=== PATIENT | male | born 1960 | race Caucasian/White ===

== ENCOUNTER 2016-11-24 20:49 | Emergency (ER) | payer MEDICAID ==
[~2016-11-24] VITALS: Ht 180.3 cm; Wt 113.4 kg
[~2016-11-24 20:49] MED LIST: ACYC800T PO; ASPI-862 PO; ASPI81TA2 PO; ATOR10TA68 PO; AZIT600T PO; BETA15OI7 TP; CHOL100024 PO; CHOL100053 PO; CICL34.62 TP; DARU400T2 PO; DIF100 PO; DOXA2TAB PO; EMTR1TAB12; EMTR1TAB9 PO; FLUT15CR TP; HYDR-4023 PO; HYDR25TA4 PO; LIP10 PO; LORA10CA PO; LORA10TA7 PO; MELO15TA13 PO; MULT-1089 PO; MULT-900 PO; NIZCR60 TP; NORVIR; PRESISTA; RALT400T5; RANI-281 PO; SULF1TAB3 PO; SULF1TAB47 PO; TRIA10.8 NS; VALS40TA6 PO; VALS80TA2 PO
[2016-11-24 21:03] VITALS: BP 146/95; PULSE 111; RESP 18; TEMP 98.2; O2SAT 95
--- NOTE | 2016-11-24 21:12 | NUR ---
Patient to ER bed 8 to gown for evaluation. Side rails up. Report given to My RN.
--- NOTE | 2016-11-24 21:15 | NUR ---
Pt drove to Emergency Room by himself, A&Ox 4, c/o sharp pain 04/22 to the right side of his stomach radiating to the back, chills, dizziness, nausea since Sunday. Pt reports having dark urine but denies any burning sensation or dysuria. Pt states that he was diagnosed with AIDS in 1998 and had rectal infection last Sunday. No SOB or ROACH at this moment. Safety maintained. Continue to monitor.
--- NOTE | 2016-11-24 21:30 | NUR ---
DAVEY Oneil at bedside examining patient. Addendum: 11/24/16 at 2305 by SDNURMTN DAVEY Cruz at bedside examining patient.
[2016-11-24 21:35] LABS: BASOPHILS # (AUTO) 0.1 K/uL (0.0-0.2); BASOPHILS % (AUTO) 1.7 % (0.0-2.0); EOSINOPHILS % (AUTO) 0.6 % (0.0-4.0); HEMATOCRIT 37.6 % (36-54); HEMOGLOBIN 12.9 g/dL (14.0-18.0); LYMPHOCYTES # (AUTO) 1.2 K/uL (1.0-5.5); LYMPHOCYTES % (AUTO) 19.5 % (20.5-51.5); MEAN CORPUSCULAR HEMOGLOBIN 32 pg (27-31); MEAN CORPUSCULAR HGB CONC 34 % (32-36); MEAN CORPUSCULAR VOLUME 94 fL (79.0-98.0); MONOCYTES # (AUTO) 0.5 K/uL (0.0-1.0); MONOCYTES % (AUTO) 7.9 % (1.7-9.3); NEUTROPHILS # (AUTO) 4.1 K/uL (1.8-7.7); NEUTROPHILS % (AUTO) 70.3 % (40.0-70.0); PLATELET COUNT (AUTO) 174 K/uL (130-430); RED BLOOD CELL COUNT(AUTO) 3.99 MIL/uL (4.2-6.2); RED CELL DISTRIBUTION WIDTH 12.7 % (9.0-15.0); WHITE BLOOD COUNT (AUTO) 5.9 K/uL (4.8-10.8)
[2016-11-24 21:45] LABS: BILIRUBIN,URINE NEGATIVE (NEGATIVE); BLOOD, URINE NEGATIVE (NEGATIVE); CLARITY/URINE CLEAR (CLEAR); COLOR,URINE YELLOW (YELLOW); GLUCOSE,URINE NEGATIVE (NEGATIVE); KETONES,URINE TRACE (NEGATIVE); LEUKOCYTE ESTERASE ,URINE NEGATIVE (NEGATIVE); NITRITE, URINE NEGATIVE (NEGATIVE); PH,URINE 5.5 (5.0-8.0); PROTEIN URINE NEGATIVE (NEGATIVE); UROBILINOGEN,URINE 0.2 (0.2-1.0)
[2016-11-24] MEDS ORDERED: KETOROLAC TROMETHAMINE 30 MG VIAL IVP ONE (21:45)
[2016-11-24 21:46] LABS: CALCIUM 8.5 mg/dL (8.4-11.0); CREATININE 1.48 mg/dL (0.55-1.30)
[2016-11-24 21:50] LABS: TOTAL BILIRUBIN 0.8 mg/dL (0.0-1.0); TOTAL PROTEIN, SERUM 6.5 g/dL (6.4-8.3)
--- NOTE | 2016-11-24 21:50 | NUR ---
Pt brought out via wheelchair for CT scan
[2016-11-24] MEDS ORDERED: POTASSIUM CHLORIDE 20 MEQ TAB.PRT.SR PO ONE (22:00)
--- NOTE | 2016-11-24 22:55 | NUR ---
Patient given written and verbal discharge instructions and verbalizes understanding. ER MD discussed with patient the results and treatment provided. Patient in stable condition. ID arm band removed. IV catheter removed intact and dressing applied, no active bleeding. Rx of Zofran given. Patient educated on pain management and to follow up with PMD. Pain Scale 09/22. Opportunity for questions provided and answered.
[2016-11-24 23:12] VITALS: BP 133/94; PULSE 105; RESP 18; TEMP 98.2; O2SAT 95
== END 2016-11-24 22:55 | disposition home or self-care (01) ==
LOC: SED 20:49
DX: R10.9 Unspecified abdominal pain (principal); R11.0 Nausea; R50.9 Fever, unspecified; I10 Essential (primary) hypertension; I25.2 Old myocardial infarction; Z91.011 Allergy to milk products; Z79.82 Long term (current) use of aspirin; Z86.73 Personal history of transient ischemic attack (TIA), and cerebral infarction without residual deficits
CPT/HCPCS: 36415; 74176; 80053; 81003; 83690; 85025; 96374; 99285; J1885

== ENCOUNTER 2016-12-24 22:57 | Emergency (ER) | payer MEDICAID ==
[~2016-12-24] VITALS: Ht 180.3 cm; Wt 90.7 kg
[2016-12-24 23:12] VITALS: BP_SYST 145; PULSE 86; RESP 18; TEMP 98.3; O2SAT 97
[2016-12-24] MEDS ORDERED: NACL 0.9% 1,000 ML IV ONE ×2 (23:16→23:30)
[2016-12-24 23:28] LABS: BASOPHILS % (AUTO) 0.2 % (0.0-2.0); EOSINOPHILS % (AUTO) 0.1 % (0.0-4.0); HEMATOCRIT 42.9 % (36-54); HEMOGLOBIN 14.2 g/dL (14.0-18.0); LYMPHOCYTES # (AUTO) 1.5 K/uL (1.0-5.5); LYMPHOCYTES % (AUTO) 20.1 % (20.5-51.5); MEAN CORPUSCULAR HEMOGLOBIN 31 pg (27-31); MEAN CORPUSCULAR HGB CONC 33 % (32-36); MEAN CORPUSCULAR VOLUME 95 fL (79.0-98.0); MONOCYTES # (AUTO) 0.7 K/uL (0.0-1.0); MONOCYTES % (AUTO) 9.4 % (1.7-9.3); NEUTROPHILS # (AUTO) 5.1 K/uL (1.8-7.7); NEUTROPHILS % (AUTO) 70.2 % (40.0-70.0); PLATELET COUNT (AUTO) 215 K/uL (130-430); RED BLOOD CELL COUNT(AUTO) 4.51 MIL/uL (4.2-6.2); RED CELL DISTRIBUTION WIDTH 12.2 % (9.0-15.0); WHITE BLOOD COUNT (AUTO) 7.3 K/uL (4.8-10.8)
[2016-12-24] MEDS ORDERED: ASPIRIN 81 MG TAB.CHEW PO ONE (23:30)
[2016-12-24 23:40] LABS: ANION GAP 7 (5-15); CALCIUM 9.1 mg/dL (8.4-11.0); CHLORIDE 103 mmol/L (98-107); CREATININE 1.13 mg/dL (0.55-1.30); GLUCOSE 157 mg/dL (70-99); POTASSIUM 3.7 mmol/L (3.5-5.1); SODIUM SERUM 141 mmol/L (136-145); UREA NITROGEN, BLOOD 23 mg/dL (8-21)
[2016-12-24 23:44] LABS: GFR AFRICAN AMERICAN 87 mL/min (>90)
[2016-12-24] MEDS ORDERED: LORazepam 2 MG/ML VIAL (FOR ER USE) IVP ONE (23:45)
[2016-12-24 23:51] LABS: ALANINE AMINOTRANSFERASE 34 U/L (12-78); ALBUMIN 3.7 g/dL (3.4-4.8); ASPARTATE AMINOTRANSFERASE 18 U/L (10-37); TOTAL BILIRUBIN 0.6 mg/dL (0.0-1.0); TOTAL PROTEIN, SERUM 6.8 g/dL (6.4-8.3)
[2016-12-24 23:59] LABS: INR 0.9 (0.80-1.20); PROTHROMBIN TIME 9.9 SECS (9.5-12.5)
[2016-12-25 01:40] VITALS: BP 128/72; PULSE 69; RESP 18; TEMP 98; O2SAT 97
== END 2016-12-25 01:40 | disposition home or self-care (01) ==
LOC: SED 22:57
DX: R00.2 Palpitations (principal); R06.02 Shortness of breath; I25.2 Old myocardial infarction; I10 Essential (primary) hypertension; Z91.011 Allergy to milk products; Z86.73 Personal history of transient ischemic attack (TIA), and cerebral infarction without residual deficits; Z79.82 Long term (current) use of aspirin
CPT/HCPCS: 36415; 80053; 84484; 85025; 85610; 85730; 93005; 96360; 99285; J7030; J2060

== ENCOUNTER 2017-01-08 18:20 | Emergency (ER) | payer MEDICAID ==
[~2017-01-08] VITALS: Ht 180.3 cm; Wt 115.2 kg
[~2017-01-08 18:20] MED LIST changes: -LORA10CA PO
[2017-01-08 18:26] VITALS: BP_SYST 122
[2017-01-08 19:13] VITALS: BP_SYST 122
== END 2017-01-08 19:13 | disposition home or self-care (01) ==
LOC: SED 18:20
DX: B02.9 Zoster without complications (principal); I25.2 Old myocardial infarction; I10 Essential (primary) hypertension; Z86.73 Personal history of transient ischemic attack (TIA), and cerebral infarction without residual deficits; Z79.82 Long term (current) use of aspirin; Z91.011 Allergy to milk products
CPT/HCPCS: 99283

== ENCOUNTER 2017-03-03 23:13 | Inpatient (IN) | payer MEDICAID ==
[~2017-03-03] VITALS: Ht 180.3 cm; Wt 117.5 kg
[2017-03-03 23:13] VITALS: BP_SYST 138
--- NOTE | 2017-03-03 23:13 | NUR ---
Patient to ER bed 3 to gown for evaluation. Side rails up. Report given to LASHELL GONSALVES.
--- NOTE | 2017-03-03 23:15 | NUR ---
Patient arrived to ED a/o x 4 with c/o headache x 6 days. Patient reports splitting 8/10 headache. Denies N/V. Reports diahhrea x 3 days. Visual disturbances. Reports feeling chills x 1 week. Patient is afebrile upon assessment. Reports constantly feeling cold. Patient has history of meningitis and HIV. Denies ABD pain. Skin warm, pink and dry. Will continue to monitor.
--- NOTE | 2017-03-03 23:15 | NUR ---
ED MD Cruz at bedside for medical assessment.
--- NOTE | 2017-03-03 23:30 | NUR ---
20 gauge angiocath placed to left. Use of asceptic technique. Opsite placed over site. Blood return noted. Blood for lab drawn from site. Flushed with 10 cc of normal saline. No evidence of infiltration noted. Patient tolerated well.
[2017-03-04] VITALS (7 sets, daily range): BP systolic 116–138
[2017-03-04] MEDS ORDERED: NACL 0.9% 1,000 ML IV ONE (00:15)
[2017-03-04] MEDS ORDERED: KETOROLAC TROMETHAMINE 30 MG VIAL IVP ONE (00:30)
[2017-03-04 00:50] LABS: BASOPHILS % (AUTO) 0.5 % (0.0-2.0); EOSINOPHILS # (AUTO) 0.1 K/uL (0.0-0.4); EOSINOPHILS % (AUTO) 1.8 % (0.0-4.0); HEMATOCRIT 40.8 % (36-54); HEMOGLOBIN 13.9 g/dL (14.0-18.0); LYMPHOCYTES # (AUTO) 1.8 K/uL (1.0-5.5); LYMPHOCYTES % (AUTO) 37.6 % (20.5-51.5); MEAN CORPUSCULAR HEMOGLOBIN 33 pg (27-31); MEAN CORPUSCULAR HGB CONC 34 % (32-36); MEAN CORPUSCULAR VOLUME 96 fL (79.0-98.0); MONOCYTES # (AUTO) 0.5 K/uL (0.0-1.0); MONOCYTES % (AUTO) 10.6 % (1.7-9.3); NEUTROPHILS # (AUTO) 2.3 K/uL (1.8-7.7); NEUTROPHILS % (AUTO) 49.5 % (40.0-70.0); PLATELET COUNT (AUTO) 181 K/uL (130-430); RED BLOOD CELL COUNT(AUTO) 4.27 MIL/uL (4.2-6.2); RED CELL DISTRIBUTION WIDTH 11.5 % (9.0-15.0); WHITE BLOOD COUNT (AUTO) 4.7 K/uL (4.8-10.8)
--- NOTE | 2017-03-04 00:52 | NUR ---
Medicated per MD orders. IVF infusing with no s/s of infiltration at this time. Will cont to monitor
[2017-03-04 01:00] LABS: INR 0.9 (0.80-1.20); PROTHROMBIN TIME 10.3 SECS (9.5-12.5)
[2017-03-04 01:01] LABS: CALCIUM 8.4 mg/dL (8.4-11.0); CHLORIDE 107 mmol/L (98-107); CREATININE 1.26 mg/dL (0.55-1.30); GLUCOSE 173 mg/dL (70-99); POTASSIUM 3.8 mmol/L (3.5-5.1); SODIUM SERUM 141 mmol/L (136-145); UREA NITROGEN, BLOOD 14 mg/dL (8-21)
[2017-03-04 01:03] LABS: GFR AFRICAN AMERICAN 77 mL/min (>90)
[2017-03-04 01:04] LABS: ANION GAP < 3 (5-15)
[2017-03-04 01:06] LABS: ALANINE AMINOTRANSFERASE 29 U/L (12-78); ALBUMIN 3.9 g/dL (3.4-4.8); ASPARTATE AMINOTRANSFERASE 18 U/L (10-37); LACTATE DEHYDROGENASE 233 U/L (85-227); TOTAL BILIRUBIN 0.5 mg/dL (0.0-1.0); TOTAL PROTEIN, SERUM 7.1 g/dL (6.4-8.3)
--- NOTE | 2017-03-04 01:20 | NUR ---
Patient reports pain 4/10 30 minutes after administration of tordal. No adverse reactions noted. Will continue to monitor.
[2017-03-04] MEDS ORDERED: MORPHINE 2 MG/ML INJ. SYRINGE IVP ONE (02:00)
[2017-03-04] MEDS ORDERED: PIPERACILLIN/TAZO 3.375 GM in NS 50 ML IV ONE (02:00)
--- NOTE | 2017-03-04 02:00 | NUR ---
Consent signed for Lumbar Puncture. Time out performed with all staff involved just prior to procedure. Lumbar area cleansed with Betadine per physician. Patient tolerated procedure well. Specimens to lab.
[2017-03-04] MEDS ORDERED: PIPERACILLIN/TAZOBACTAM 3.375 GM/VIAL (ZOSYN) IV ONE (02:08)
--- NOTE | 2017-03-04 02:15 | NUR ---
ED MD Cruz at bedside reassessing patient.
[2017-03-04] MEDS ORDERED: MAGNESIUM SULFATE 50 ML IV PRN (02:30)
[2017-03-04] MEDS ORDERED: ZOLPIDEM TARTRATE 5 MG TABLET PO PRN (02:30)
[2017-03-04] MEDS ORDERED: IPRATROPIUM/ALBUTEROL SULFATE 3 ML AMPUL.NEB INH PRN (02:30)
[2017-03-04] MEDS ORDERED: POTASSIUM CHLORIDE 20 MEQ TAB.PRT.SR PO PRN (02:30)
[2017-03-04] MEDS ORDERED: LORazepam 2 MG/ML VIAL IVP PRN (02:30)
--- NOTE | 2017-03-04 02:30 | NUR ---
Patient reports pain 4/10 30 minutes after administration of morphine. No adverse reactions noted. Will continue to monitor.
[2017-03-04 02:50] LABS: BILIRUBIN,URINE NEGATIVE (NEGATIVE); BLOOD, URINE NEGATIVE (NEGATIVE); CLARITY/URINE CLEAR (CLEAR); COLOR,URINE YELLOW (YELLOW); GLUCOSE,URINE NEGATIVE (NEGATIVE); KETONES,URINE NEGATIVE (NEGATIVE); LEUKOCYTE ESTERASE ,URINE NEGATIVE (NEGATIVE); NITRITE, URINE NEGATIVE (NEGATIVE); PROTEIN URINE NEGATIVE (NEGATIVE); UROBILINOGEN,URINE 0.2 (0.2-1.0)
--- NOTE | 2017-03-04 03:00 | NUR ---
Patient will be admitted to care of Dr. Stone. Admitted to telemetry unit. Will go to room 110B. Belongings list completed. Summary report printed. Report will be given at bedside.
--- NOTE | 2017-03-04 03:05 | NUR ---
ADMISSION NOTE Received patient from ER via gurney. Patient admitted with diagnosis of toxic encephalopathy. Patient is awake, alert, oriented X4. Patient oriented to hospital room, call light, toileting, pain management and safety-teach back done. Patient informed that Esau RN will be his nurse and that their room number is 110B. Personal belongings checked and Belongings List documented. Call light within reach
[2017-03-04 03:09] LABS: FREE T4 (FREE THYROXINE) 0.5 ng/dL (0.6-1.6); THYROID STIMULATING HORMONE 0.87 uIu/mL (0.34-4.82)
--- NOTE | 2017-03-04 03:20 | NUR ---
Initial note A/O x 3, no SOB, no chest pain, c/o headache 04/22. Skin warm to touch, IV at L AC, patent. One bandage at lower back due to lumbar puncture. No s/s of bleeding at site. Clear lung sounds and active bowel sounds. Patient is aware of stool collecting. +2 radial and pedal pulses. No edema noted. Call light within reach, bed at lowest position, will continue to monitor patient. Addendum: 03/04/17 at 0528 by Esau Sanon RN Headache 01/20. DONNA GONSALVES.
[2017-03-04] MEDS: NACL 0.9% 1,000 ML IV SCH ×3 (03:47→21:20)
[2017-03-04] MEDS ORDERED: ACYCLOVIR SODIUM 50 MG/ML VIAL IV ONE (04:28)
[2017-03-04] MEDS ORDERED: cefTRIAXone 2 GM VIAL ONE (04:29)
[2017-03-04] MEDS: ACYCLOVIR IV SCH ×3 (05:10→21:10)
[2017-03-04] MEDS: D5W IV SCH ×3 (05:10→21:10)
[2017-03-04] MEDS: MORPHINE 2 MG/ML INJ. SYRINGE IVP PRN ×3 (05:22→21:10)
--- NOTE | 2017-03-04 06:10 | NUR ---
Pain was not decreased by Morphine Per patient, he was talking Vicodin at home and worked for him. Will page Dr. Stone for patient pain management.
[2017-03-04] MEDS: INSULIN REGULAR, HUMAN 100 UNITS/ML, 10 ML VIAL (novoLIN R) SUBCUT PRN (06:38)
--- NOTE | 2017-03-04 06:48 | NUR ---
Report to Dr. Stone regarding patient pain was not controlled well. Dr. Stone ordered Vicodin 5/325 mg PO Q6H PRN for severe pain (7-10). is aware of patient is NPO. said it's ok to have medications orally.
--- NOTE | 2017-03-04 07:02 | NUR ---
Closing note Awake, no SOB, no chest pain, c/o headache, patient is aware of Vicodin order. Medication pending. IVF ongoing. Bed at lowest position, call light within reach, will give report to incoming nurse regarding stool collection for C-Diff and pain management.
--- NOTE | 2017-03-04 08:00 | NUR ---
INITIAL NOTE PT LAYING IN BED, RESTING, ALERT AND ORIENTED, NO S/S OF ACUTE DISTRESS, COMPLAINS OF HEADACHE AND SENSITIVITY TO LIGHT, REQUESTING THE LIGHT OVER HIS BED NOT BE TURNED ON TO PLEASE USE OTHER LIGHT, IV FLUIDS INFUSING AT ORDERED RATE, IV SITE PATENT AND INTACT, VSS, SAFETY MEASURES IN PLACE, WILL FOLLOW UP
[2017-03-04] MEDS: LORATADINE 10 MG TABLET PO SCH (08:53)
[2017-03-04] MEDS: HYDROcodone/ACETAMIN 5-325 MG TAB (NORCO/ VICODIN) PO PRN ×2 (08:57→15:27)
[2017-03-04] MEDS: DOXAZOSIN MESYLATE 2 MG TABLET PO SCH (08:58)
[2017-03-04] MEDS: VALSARTAN 80 MG TABLET (DIOVAN) PO SCH (08:58)
[2017-03-04] MEDS: HYDROCHLOROTHIAZIDE 25 MG TABLET (HCTZ) PO SCH (08:59)
[2017-03-04] MEDS ORDERED: DOCUSATE SODIUM 100 MG CAPSULE PO SCH (09:00)
--- NOTE | 2017-03-04 09:30 | NUR ---
PT HAD BM, BM WAS FORMED, NO FOUL ORDER NOTED, WILL MONITOR FOR LOOSE STOOL PER PATIENT ADMITTING REPORT
--- NOTE | 2017-03-04 11:00 | NUR ---
DR TOVAR MAKING ROUNDS
--- NOTE | 2017-03-04 12:00 | NUR ---
BLOOD SUGAR 97, NO COVERAGE NEEDED PER SLIDING SCALE
[2017-03-04] MEDS: SULFAMETHOXAZOLE /TRIMETHOPRIM 20 ML in D5W 500 ML IV SCH ×2 (13:27→18:41)
--- NOTE | 2017-03-04 13:27 | NUR ---
PAIN MANAGEMENT PT COMPLAINS OF HEADACHE, STATES HE WOULD LIKE THE MORPHINE THIS TIME, WILL ADMINISTER AND FOLLOW UP
--- NOTE | 2017-03-04 15:30 | NUR ---
PAIN MANAGEMENT PT COMPLAINING OF AGGRAVATED HEADACHE, FAMILY AT BEDSIDE, TALKING, SOCIALIZING, REQUESTED FAMILY LET PATIENT REST, PROVIDED PATIENT WITH COLD PACK AND TOWEL TO PLACE OVER HEAD AND PAIN MEDICATION, LIGHTS TURNED OFF, DOOR CLOSED, WILL FOLLOW UP
--- NOTE | 2017-03-04 17:46 | NUR ---
ROUNDS PT LAYING IN BED, LIGHTS TURNED OFF, COLD PACK TO HEAD, FAMILY AT BEDSIDE, PT STATES HIS HEADACHE IS FINE LONG HE DOES NOT OPEN HIS EYES AND AVOIDS LIGHT, STATES HE HAS NO NEEDS AT THIS TIME, DENIES ANY EPISODE OF DIARRHEA, SAFETY MEASURES IN PLACE, CALL LIGHT WITHIN REACH, WILL CONTINUE TO MONITOR
--- NOTE | 2017-03-04 18:32 | NUR ---
closing note pt laying in bed, tech at bedside for 2d echo, pt alert and oriented, stable, still has photosensitivity, cold pack to forehead helping, iv fluids infusing at ordered rate, site patent and intact, all need attended to throughout shift, commonly used items placed within reach, safety measures maintained, call light within reach, will give report to following shift
--- NOTE | 2017-03-04 20:21 | NUR ---
Patient awake alert assist out of bed ambulatory , verbally indicative chest movement symmetrical using rest room as needed on room air 02 SAT 96 % skin dry also warm / .
--- NOTE | 2017-03-04 20:50 | NUR ---
ID consultation paged: Reason for consultation: Aid, Possible Meningitis Was consult called: Yes Person who was notified: Arlin Consulting Physician: Dr Angel [employer] Specialty: ID [employer] Ordered By: Dr Stone
[2017-03-04] MEDS ORDERED: MELOXICAM 7.5 MG TABLET PO SCH (21:00)
[2017-03-04] MEDS: ONDANSETRON HCL 4 MG/2 ML VIAL IVP PRN (21:09)
[2017-03-04] MEDS: ATORVASTATIN 10 MG TABLET PO SCH (21:10)
--- NOTE | 2017-03-04 22:15 | NUR ---
MORPHINE SULFATE 2 MG IVP administer for general discomfort & helpful .
--- NOTE | 2017-03-04 23:40 | NUR ---
ZOFRAN 4 MG IVP administer for GI upset & helpful .
[2017-03-05] MEDS: HYDROcodone/ACETAMIN 5-325 MG TAB (NORCO/ VICODIN) PO PRN (01:58)
[2017-03-05] MEDS: SULFAMETHOXAZOLE /TRIMETHOPRIM 20 ML in D5W 500 ML IV SCH ×2 (01:59→11:49)
[2017-03-05] MEDS: NACL 0.9% 1,000 ML IV SCH ×2 (02:38→16:59)
--- NOTE | 2017-03-05 02:52 | NUR ---
NORCO TABLET PO administer for general discomfort & helpful .
--- NOTE | 2017-03-05 02:54 | NUR ---
Hourly Rounding assist patient out of bed to rest room PT ambulatory safety measures implemented & alert oriented / .
--- NOTE | 2017-03-05 03:57 | NUR ---
Patient has Home medications to be reviewed by the Pharmacy , medication sent to the Rx .
[2017-03-05 03:58] VITALS: BP_SYST 134
--- NOTE | 2017-03-05 06:04 | NUR ---
Hourly Rounding patient resting call Olivarez with patient , all needs met & attended to , assist PT as needed , no adverse reaction noted with medication ( s ) .
[2017-03-05] MEDS: ACYCLOVIR IV SCH ×3 (06:37→21:19)
[2017-03-05] MEDS: D5W IV SCH ×3 (06:37→21:19)
[2017-03-05 08:30] LABS: BASOPHILS # (AUTO) 0.1 K/uL (0.0-0.2); BASOPHILS % (AUTO) 3.2 % (0.0-2.0); EOSINOPHILS # (AUTO) 0.1 K/uL (0.0-0.4); EOSINOPHILS % (AUTO) 1.3 % (0.0-4.0); HEMATOCRIT 35.3 % (36-54); HEMOGLOBIN 11.9 g/dL (14.0-18.0); LYMPHOCYTES # (AUTO) 1.1 K/uL (1.0-5.5); MEAN CORPUSCULAR HEMOGLOBIN 32 pg (27-31); MEAN CORPUSCULAR HGB CONC 34 % (32-36); MEAN CORPUSCULAR VOLUME 94 fL (79.0-98.0); MONOCYTES # (AUTO) 0.4 K/uL (0.0-1.0); MONOCYTES % (AUTO) 9.1 % (1.7-9.3); NEUTROPHILS # (AUTO) 2.6 K/uL (1.8-7.7); NEUTROPHILS % (AUTO) 60.4 % (40.0-70.0); PLATELET COUNT (AUTO) 165 K/uL (130-430); RED BLOOD CELL COUNT(AUTO) 3.75 MIL/uL (4.2-6.2); RED CELL DISTRIBUTION WIDTH 11.4 % (9.0-15.0); WHITE BLOOD COUNT (AUTO) 4.3 K/uL (4.8-10.8)
[2017-03-05 08:45] LABS: CALCIUM 7.9 mg/dL (8.4-11.0); CREATININE 1.23 mg/dL (0.55-1.30); PHOSPHORUS 2.6 mg/dL (2.7-4.5); POTASSIUM 3.6 mmol/L (3.5-5.1)
[2017-03-05 08:54] VITALS: BP_SYST 119
--- NOTE | 2017-03-05 08:56 | NUR ---
Initial notes: pt laying in bed,weak . with temp 102.9, cold pack to forehead helping, iv fluids infusing at ordered rate, site patent and intact, tech at bedside for 2d echo, pt alert and oriented, still has photosensitivity,all need attended to throughout shift, commonly used items placed within reach, safety measures maintained, call light within reach.
[2017-03-05] MEDS: LORATADINE 10 MG TABLET PO SCH (09:34)
[2017-03-05] MEDS: DOXAZOSIN MESYLATE 2 MG TABLET PO SCH (09:35)
[2017-03-05] MEDS: ACETAMINOPHEN 325 MG TABLET PO PRN ×2 (09:36→21:19)
[2017-03-05] MEDS: HYDROCHLOROTHIAZIDE 25 MG TABLET (HCTZ) PO SCH (09:37)
[2017-03-05] MEDS: VALSARTAN 80 MG TABLET (DIOVAN) PO SCH (09:39)
--- NOTE | 2017-03-05 09:42 | NUR ---
YUNG; MEDICATION IS GIVEN . PT ABLE TO WALK AND TAKE MEDICATION ON HIS OWN . Addendum: 03/05/17 at 0944 by Ulises Ty RN MEDICATION; MEDICATION IS GIVEN . PT ABLE TO WALK AND TAKE MEDICATION ON HIS OWN .
[2017-03-05] MEDS: MORPHINE 2 MG/ML INJ. SYRINGE IVP PRN ×2 (10:59→15:53)
[2017-03-05] MEDS ORDERED: COMMUNICATION ORDER XX ONE (11:00)
--- NOTE | 2017-03-05 11:09 | NUR ---
pain meds: pain meds is given .
[2017-03-05 11:34] VITALS: BP_SYST 141
[2017-03-05] MEDS ORDERED: SULFAMETHOXAZOLE /TRIMETHOPRIM 30 ML in D5W 500 ML IV SCH (12:00)
--- NOTE | 2017-03-05 12:01 | NUR ---
BLOOD SUGAR: BLOOD SUGAR IS TAKEN 124 ML/DL.
--- NOTE | 2017-03-05 14:53 | NUR ---
RN ROUNDS: PT WITH FAMILY AT BED SIDE . AND X-RAY DEPARTMENT RD MANAGER HIM [id number].
[2017-03-05] MEDS ORDERED: LIDOCAINE 1%, 20 ML MDV 20 ML ONE (15:32)
[2017-03-05 15:36] VITALS: BP_SYST 109
--- NOTE | 2017-03-05 15:40 | NUR ---
RN ROUNDS: PT COME BACK TO ROOM 110B . AND PT COMPLAIN ABOUT PAIN ,MORPHINE IS GIVEN . FAMILY AROUND
[2017-03-05] MEDS: ODEFSEY PO SCH (16:00)
--- NOTE | 2017-03-05 16:01 | NUR ---
pain meds: c/o pain and due iv morphine given per patient's request.
[2017-03-05] MEDS: ONDANSETRON HCL 4 MG/2 ML VIAL IVP PRN (16:03)
--- NOTE | 2017-03-05 16:15 | NUR ---
ID FOLLOW UP ; OSKAR GONSALVES SPOKE TO DR. EDDY ,AND AWARE OF THE CONSULT .HE IS GOING TO SEE THE PT MIKE .
[2017-03-05] MEDS: INSULIN REGULAR, HUMAN 100 UNITS/ML, 10 ML VIAL (novoLIN R) SUBCUT PRN (17:10)
--- NOTE | 2017-03-05 17:12 | NUR ---
BLOOD SUGAR: BLOOD SUGAR IS TAKEN ,REGULAR INSULIN GIVEN . IV IS REPLACED .
[2017-03-05] MEDS: SULFAMETHOXAZOLE /TRIMETHOPRIM 30 ML in D5W 500 ML IV SCH (18:52)
--- NOTE | 2017-03-05 18:58 | NUR ---
CLOSING NOTES: PT STABLE ,NO PAIN ,NO DISTRESS. IV ANTIBIOTIC GIVEN BY 0.
--- NOTE | 2017-03-05 20:07 | NUR ---
OPENING NOTES PATIENT IS A/OX4. NO SIGNS OF DISTRESS. BREATHING IS NON LABORED. VITAL SIGNS ARE STABLE. PATIENT HAS NO COMPLAINTS OF PAIN. IV IS PATENT. PATIENT INSTRUCTED TO CALL FOR ASSISTANCE. PATIENT VERBALIZED UNDERSTANDING. BED ALARM IS ON. WILL CONTINUE TO MONITOR.
[2017-03-05 20:10] VITALS: BP_SYST 112
[2017-03-05] MEDS: ATORVASTATIN 10 MG TABLET PO SCH (21:19)
--- NOTE | 2017-03-05 22:30 | NUR ---
TEMPERATURE REASSESSMENT PATIENT TEMPERATURE WAS 98.8. PATIENT IS RESTING COMFORTABLY. WILL CONTINUE TO MONITOR. CALL LIGHT IS WITHIN REACH. PATIENT REFUSED BED ALARM. PATIENT EDUCATED ON IMPORTANCE OF BED ALARM FOR SAFETY. PATIENT REFUSED. PATIENT IS WEARING NON-SKID SLIPPERS. WILL CONTINUE TO MONITOR. PATIENT INSTRUCTED TO CALL FOR ASSISTANCE. PATIENT VERBALIZED UNDERSTANDING.
[2017-03-05 23:51] LABS: HEMOGLOBIN A1C 5.4 % (4.8-5.6)
[2017-03-06] VITALS: BP_SYST 112
--- NOTE | 2017-03-06 00:40 | NUR ---
ROUNDS PATIENT IS IN BED RESTING. NO SIGNS OF DISTRESS. BREATHING IS NON LABORED. CALL LIGHT IS WITHIN REACH. SAFETY MEASURES ARE IN PLACE. WILL CONTINUE TO MONITOR.
[2017-03-06 02:08] LABS: T4 (THYROXINE) 6.4 ug/dL (4.5-12.0)
[2017-03-06] MEDS: SULFAMETHOXAZOLE /TRIMETHOPRIM 30 ML in D5W 500 ML IV SCH ×3 (03:23→18:10)
[2017-03-06] MEDS: ACETAMINOPHEN 325 MG TABLET PO PRN ×2 (03:28→08:14)
--- NOTE | 2017-03-06 03:30 | NUR ---
HEADACHE PATIENT COMPLAINED OF HEADACHE 3/. GAVE PRN TYLENOL. VITAL SIGNS ARE STABLE. NO SIGNS OF DISTRESS. BREATHING IS NON LABORED. CALL LIGHT IS WITHIN REACH. SAFETY MEASURES ARE IN PLACE. WILL CONTINUE TO MONITOR.
[2017-03-06] MEDS: NACL 0.9% 1,000 ML IV SCH (03:40)
[2017-03-06 04:00] VITALS: BP_SYST 120
--- NOTE | 2017-03-06 05:45 | NUR ---
ROUNDS PATIENT IS IN BED SLEEPING. NO SIGNS OF DISTRESS. BREATHING IS NON LABORED. CALL LIGHT IS WITHIN REACH. SAFETY MEASURES ARE IN PLACE. WILL CONTINUE TO MONITOR.
[2017-03-06] MEDS: ACYCLOVIR IV SCH ×3 (06:33→21:37)
[2017-03-06] MEDS: D5W IV SCH ×3 (06:33→21:37)
--- NOTE | 2017-03-06 06:41 | NUR ---
CLOSING NOTES/PATIENT CARE PATIENT IS A/OX4. NO SIGNS OF DISTRESS. BREATHING IS NON LABORED. IV PATENT. PATIENT WAS ASSISTED TO THE RESTROOM AND BACK INTO BED. GAIT WAS STEADY. PATIENT HAS NO COMPLAINTS OF PAIN. WILL ENDORSE ALL CARE TO THE MORNING NURSE.
[2017-03-06 07:26] LABS: BASOPHILS % (AUTO) 0.6 % (0.0-2.0); EOSINOPHILS # (AUTO) 0.1 K/uL (0.0-0.4); EOSINOPHILS % (AUTO) 1.9 % (0.0-4.0); HEMATOCRIT 36.9 % (36-54); HEMOGLOBIN 12.5 g/dL (14.0-18.0); LYMPHOCYTES # (AUTO) 1.3 K/uL (1.0-5.5); LYMPHOCYTES % (AUTO) 30.5 % (20.5-51.5); MEAN CORPUSCULAR HEMOGLOBIN 33 pg (27-31); MEAN CORPUSCULAR HGB CONC 34 % (32-36); MEAN CORPUSCULAR VOLUME 97 fL (79.0-98.0); MONOCYTES # (AUTO) 0.4 K/uL (0.0-1.0); MONOCYTES % (AUTO) 9.9 % (1.7-9.3); NEUTROPHILS # (AUTO) 2.4 K/uL (1.8-7.7); NEUTROPHILS % (AUTO) 57.1 % (40.0-70.0); PLATELET COUNT (AUTO) 164 K/uL (130-430); RED BLOOD CELL COUNT(AUTO) 3.81 MIL/uL (4.2-6.2); RED CELL DISTRIBUTION WIDTH 11.5 % (9.0-15.0); WHITE BLOOD COUNT (AUTO) 4.2 K/uL (4.8-10.8)
--- NOTE | 2017-03-06 07:30 | NUR ---
AM ROUNDS: REPORT GIVEN AT BEDSIDE BY GENIA DSOUZA. RESTING IN BED. NO DISTRESS. CALL LIGHT WITH IN REACH.
[2017-03-06 07:36] LABS: CALCIUM 8.2 mg/dL (8.4-11.0); CREATININE 1.37 mg/dL (0.55-1.30); PHOSPHORUS 3.3 mg/dL (2.7-4.5); POTASSIUM 3.6 mmol/L (3.5-5.1)
[2017-03-06 08:08] VITALS: BP_SYST 110
[2017-03-06] MEDS: LORATADINE 10 MG TABLET PO SCH (08:12)
[2017-03-06] MEDS: HYDROCHLOROTHIAZIDE 25 MG TABLET (HCTZ) PO SCH (08:12)
[2017-03-06] MEDS: MULTIVITAMINS TAB 1 TABLET PO SCH (08:12)
[2017-03-06] MEDS: ASPIRIN 81 MG TAB.CHEW PO SCH (08:12)
[2017-03-06] MEDS: DOXAZOSIN MESYLATE 2 MG TABLET PO SCH (08:13)
[2017-03-06] MEDS: VALSARTAN 80 MG TABLET (DIOVAN) PO SCH (08:13)
--- NOTE | 2017-03-06 08:18 | NUR ---
HEADACHE: TYLENOL PO GIVEN FOR HEADACHE. PATIENT HAVING BREAKFAST.
--- NOTE | 2017-03-06 09:08 | NUR ---
ID follow up: called office. staff will remind Dr. Benton of consult.
[2017-03-06] MEDS ORDERED: KETOROLAC TROMETHAMINE 30 MG VIAL IM PRN (09:30)
[2017-03-06] MEDS ORDERED: KETOROLAC TROMETHAMINE 30 MG VIAL IM ONE (09:30)
[2017-03-06] MEDS ORDERED: PANTOPRAZOLE SODIUM 40 MG/VIAL (PROTONIX) IVP ONE (09:30)
--- NOTE | 2017-03-06 10:20 | NUR ---
TORADOL: TORADOL 30MG IM GIVEN AT LEFT DELTOID PER PATIENT'S REQUEST.
[2017-03-06 11:14] VITALS: BP_SYST 112
--- NOTE | 2017-03-06 11:28 | NUR ---
BLOOD SUGAR: BLOOD SUGAR TAKEN ,NO INSULIN NEEDED PER SLIDING SCALE.
[2017-03-06] MEDS: ODEFSEY PO SCH (13:11)
--- NOTE | 2017-03-06 13:13 | NUR ---
ROUNDS: TALKING WITH THE CASE MGT/DC POSTAL CLERK. NO DISTRESS.
[2017-03-06 15:52] VITALS: BP_SYST 117
--- NOTE | 2017-03-06 15:56 | NUR ---
ROUNDS: RESTING. STABLE.
[2017-03-06 16:19] LABS: CSF GLUCOSE 65 mg/dL (40-70); CSF PROTEIN 54 mg/dL (15-45)
[2017-03-06 16:27] LABS: CSF APPEARANCE CLEAR (CLEAR); CSF COLOR COLORLESS (COLORLESS)
[2017-03-06] MEDS: HYDROcodone/ACETAMIN 5-325 MG TAB (NORCO/ VICODIN) PO PRN (17:02)
--- NOTE | 2017-03-06 17:04 | NUR ---
PAIN MEDICATIONS: C/O HEADACHE 03/22 PAIN LEVEL,DUE PO NORCO GIVEN PER PATIENT'S REQUEST.
[2017-03-06 18:15] LABS: CSF RED BLOOD CELL COUNT 27 /uL (0-0); CSF TUBE NUMBER 1; CSF WHITE BLOOD CELL COUNT 12 /uL (0-5)
[2017-03-06 18:30] LABS: CSF LYMPHOCYTES 92 % (40-60); CSF MONOCYTES 8 % (15-45); CSF NEUTROPHILS 0 % (0-6)
--- NOTE | 2017-03-06 18:47 | NUR ---
CLOSING NOTES: PATIENT ATE HIS DINNER WELL. NO DISTRESS. NEEDS ATTENDED TO.
--- NOTE | 2017-03-06 20:00 | NUR ---
ROUNDS PATIENT RESTING COMFORTABLY IN BED, NOT IN DISTRESS, VITALS STABLE. DENIES ANY PAIN AND DISCOMFORT AT THIS TIME. ASSESSMENT DONE AND DOCUMENTED. SEE FLOWSHEET. NEEDS ATTENDED TO. SAFETY AND FALL PRECAUTION MEASURES IN PLACED. BED IN LOW AND LOCKED POSITION. CALL LIGHT PLACED WITHIN REACH.
[2017-03-06] MEDS: ONDANSETRON HCL 4 MG/2 ML VIAL IVP PRN (20:46)
--- NOTE | 2017-03-06 21:15 | NUR ---
ACCU CHECK ACCU CHECK DONE, BLOOD SUGAR 154, 2 UNITS REGULAR INSULIN GIVEN SQ ORDERED PER SLIDING SCALE. WILL CONTINUE TO MONITOR.
[2017-03-06] MEDS: INSULIN REGULAR, HUMAN 100 UNITS/ML, 10 ML VIAL (novoLIN R) SUBCUT PRN (21:37)
[2017-03-06] MEDS: ATORVASTATIN 10 MG TABLET PO SCH (21:38)
--- NOTE | 2017-03-07 | NUR ---
PATIENT RESTING: Patient resting quietly. No acute distress noted. Vital signs within normal range.
[2017-03-07 00:19] VITALS: BP_SYST 104
[2017-03-07] MEDS: HYDROcodone/ACETAMIN 5-325 MG TAB (NORCO/ VICODIN) PO PRN ×2 (00:45→21:54)
--- NOTE | 2017-03-07 02:10 | NUR ---
ROUNDS PATIENT ASLEEP, VITALS STABLE, NO SIGNS OF ANY PAIN AND DISCOMFORT NOTED. WILL CONTINUE TO MONITOR.
--- NOTE | 2017-03-07 04:10 | NUR ---
PATIENT RESTING: Patient resting quietly. No acute distress noted. Vital signs within normal range.
[2017-03-07 04:32] VITALS: BP_SYST 98
[2017-03-07] MEDS: SULFAMETHOXAZOLE /TRIMETHOPRIM 30 ML in D5W 500 ML IV SCH ×3 (04:43→21:16)
--- NOTE | 2017-03-07 06:22 | NUR ---
CLOSING NOTES PATIENT STABLE, NO PAIN AND DISCOMFORT AT THIS TIME. ACCU CHECK DONE, BLOOD SUGAR 104 WITH NO INSULIN COVERAGE PER SLIDING SCALE. ALL NEEDS ATTENDED TO. CALL LIGHT PLACED WITHIN REACH.
[2017-03-07] MEDS: ACYCLOVIR IV SCH ×3 (06:32→23:25)
[2017-03-07] MEDS: D5W IV SCH ×3 (06:32→23:25)
--- NOTE | 2017-03-07 07:44 | NUR ---
OPENING NOTE: RECEIVED REPORT FROM RADIOLOGIST PHYSICIAN NURSE. PATIENT IS RESTING COMFORTABLY, NO COMPLAINTS OF PAIN. PATIENT HAS NO NOTABLE SIGNS OF DISTRESS AT THIS TIME. PATIENTS BED IN LOWEST POSITION, CALL LIGHT WITHIN REACH, AND SIDE RAILS ARE UP FOR SAFETY. WILL CONTINUE TO MONITOR PATIENT FOR CHANGES IN STATUS. PATIENT WOULD LIKE LIGHTS OFF AND DOOR CLOSED RELATED TO PHOTOPHOBIA.
[2017-03-07 08:03] VITALS: BP_SYST 110
[2017-03-07] MEDS ORDERED: ONDANSETRON HCL 4 MG/2 ML VIAL IVP ONE (08:15)
[2017-03-07] MEDS ORDERED: SUMAtriptan SUCCINATE 6 MG/0.5 ML VIAL SUBCUT ONE (08:15)
[2017-03-07] MEDS ORDERED: MECLIZINE HCL 25 MG TABLET (ANITVERT) PO ONE (08:15)
[2017-03-07] MEDS ORDERED: MECLIZINE HCL 25 MG TABLET (ANITVERT) PO SCH (09:00)
[2017-03-07] MEDS ORDERED: MECLIZINE HCL 25 MG TABLET (ANITVERT) PO PRN (09:00)
--- NOTE | 2017-03-07 10:15 | NUR ---
1000 NOTE: PATIENT IS RESTING COMFORTABLY, NO COMPLAINTS OF PAIN. PATIENT HAS NO NOTABLE SIGNS OF DISTRESS AT THIS TIME. PATIENTS BED IN LOWEST POSITION, CALL LIGHT WITHIN REACH, AND SIDE RAILS ARE UP FOR SAFETY. WILL CONTINUE TO MONITOR PATIENT FOR CHANGES IN STATUS. PATIENTS MORNING MEDICATIONS GIVEN LATE DUE TO PATIENT CARE.
[2017-03-07] MEDS: PANTOPRAZOLE SODIUM 40 MG/VIAL (PROTONIX) IVP SCH (10:33)
[2017-03-07] MEDS: NACL 0.9% 1,000 ML IV SCH (10:40)
[2017-03-07] MEDS: ASPIRIN 81 MG TAB.CHEW PO SCH (10:40)
[2017-03-07] MEDS: DOCUSATE SODIUM 100 MG CAPSULE PO SCH ×2 (10:43→21:54)
[2017-03-07] MEDS: DOXAZOSIN MESYLATE 2 MG TABLET PO SCH (10:43)
[2017-03-07] MEDS: LORATADINE 10 MG TABLET PO SCH (10:43)
[2017-03-07] MEDS: MULTIVITAMINS TAB 1 TABLET PO SCH (10:45)
[2017-03-07] MEDS: VALSARTAN 80 MG TABLET (DIOVAN) PO SCH (10:45)
[2017-03-07] MEDS: HYDROCHLOROTHIAZIDE 25 MG TABLET (HCTZ) PO SCH (10:47)
[2017-03-07] MEDS: LACTULOSE 20 GM/30 ML UDC PO SCH ×2 (10:48→21:00)
[2017-03-07 11:25] VITALS: BP_SYST 120
--- NOTE | 2017-03-07 11:40 | NUR ---
BLOOD SUGAR PATIENT BLOOD GLUCOSE LEVEL CHECKED, 117. NO INSULIN NEEDED FOR COVERAGE.
--- NOTE | 2017-03-07 12:48 | NUR ---
1200 NOTE: PATIENT IS RESTING COMFORTABLY, NO COMPLAINTS OF PAIN. PATIENT HAS NO NOTABLE SIGNS OF DISTRESS AT THIS TIME. PATIENTS BED IN LOWEST POSITION, CALL LIGHT WITHIN REACH, AND SIDE RAILS ARE UP FOR SAFETY. WILL CONTINUE TO MONITOR PATIENT FOR CHANGES IN STATUS. AWAITING CLARIFICATION ORDER FROM MD REGARDING PAIN MEDICATION.
[2017-03-07] MEDS: ODEFSEY PO SCH (12:57)
--- NOTE | 2017-03-07 14:25 | NUR ---
1400 NOTE: PATIENT IS RESTING COMFORTABLY, PATIENT COMPLAINS OF PAIN, MEDICATED WITH MORPHINE FOR RELIEF. PATIENT HAS NO NOTABLE SIGNS OF DISTRESS AT THIS TIME. PATIENTS BED IN LOWEST POSITION, CALL LIGHT WITHIN REACH, AND SIDE RAILS ARE UP FOR SAFETY. WILL CONTINUE TO MONITOR PATIENT FOR CHANGES IN STATUS.
[2017-03-07 15:27] VITALS: BP_SYST 115
[2017-03-07] MEDS: MORPHINE 2 MG/ML INJ. SYRINGE IVP PRN (15:50)
--- NOTE | 2017-03-07 16:51 | NUR ---
1600 NOTE: PATIENT IS RESTING COMFORTABLY, NO COMPLAINTS OF PAIN. PATIENT HAS NO NOTABLE SIGNS OF DISTRESS AT THIS TIME. PATIENTS BED IN LOWEST POSITION, CALL LIGHT WITHIN REACH, AND SIDE RAILS ARE UP FOR SAFETY. WILL CONTINUE TO MONITOR PATIENT FOR CHANGES IN STATUS.
--- NOTE | 2017-03-07 18:55 | NUR ---
CLOSING NOTE: GAVE REPORT TO HEALTH AND FITNESS PROFESSOR RN. PATIENT IS RESTING COMFORTABLY, NO COMPLAINTS OF PAIN. DISCOMFORT TO ANTERIOR HEAD, FACE, PRESSURE LIKE DISCOMFORT. PATIENTS IV RUNNING PER MD ORDERS. PATIENT AMBULATORY, NO NEED FOR DVT PROPHYLAXIS. PATIENT AMBULATES STEADILY TO RESTROOM. PATIENT TO HAVE LABS: CBC, CMP, MG, PHOS IN AM. ENDORSED TO HEALTH AND FITNESS PROFESSOR NURSE. PATIENT HAS NO NOTABLE SIGNS OF DISTRESS AT THIS TIME. PATIENTS FAMILY IS AT BEDSIDE. PATIENTS BED IN LOWEST POSITION, CALL LIGHT WITHIN REACH, AND SIDE RAILS ARE UP FOR SAFETY.
[2017-03-07 20:00] VITALS: BP_SYST 108
--- NOTE | 2017-03-07 20:00 | NUR ---
Initial PM Note Pt was received lying in bed fully AAO x4. Speech is clear and pt is able to make his needs known. No acute distress noted at this time. Skin is warm and dry to touch. No signs or symptoms of hypoglycemia or hyperglycemia noted. IVF of NS is infusing well in LFA at 40ml/hr without any signs of infiltration. Fall and safety precautions are in place.
--- NOTE | 2017-03-07 21:31 | NUR ---
Blood Sugar Accucheck 112 and no Insulin coverage needed. Skin remains warm and dry to touch. Family brought outside food and pt ate 50%.
[2017-03-07] MEDS: ATORVASTATIN 10 MG TABLET PO SCH (21:54)
--- NOTE | 2017-03-07 21:54 | NUR ---
pain Medication [place] 5/325mg 1 tablet was given po for c/o headache with relief.
--- NOTE | 2017-03-08 | NUR ---
rounds Pt is sleeping without any distress noted. IVF is infusing well.
[2017-03-08 00:24] VITALS: BP_SYST 110
--- NOTE | 2017-03-08 02:00 | NUR ---
Rounds Pt is sleeping comfortably in bed. IVF is infusing well.
[2017-03-08] MEDS: SULFAMETHOXAZOLE /TRIMETHOPRIM 30 ML in D5W 500 ML IV SCH ×3 (02:42→21:24)
[2017-03-08] MEDS: NACL 0.9% 1,000 ML IV SCH ×2 (03:40→22:50)
[2017-03-08 04:05] VITALS: BP_SYST 104
--- NOTE | 2017-03-08 05:00 | NUR ---
Rounds Pt is sleeping without any distress noted.
[2017-03-08] MEDS ORDERED: cefTRIAXone 1 GM VIAL ONE (05:21)
--- NOTE | 2017-03-08 06:22 | NUR ---
Closing Note Pt is awake and not in any distress. All pt's needs were attended to. No fall or injury noted this shift. Will endorse to day shift nurse.
[2017-03-08] MEDS: D5W IV SCH ×3 (06:35→22:31)
[2017-03-08] MEDS: ACYCLOVIR IV SCH ×3 (06:35→22:31)
--- NOTE | 2017-03-08 06:48 | NUR ---
Headache Toradol 30mg IV and Imitrex 6mg SQ given for c/o headache as ordered by Dr. Stone with relief.
[2017-03-08] MEDS ORDERED: SUMAtriptan SUCCINATE 6 MG/0.5 ML VIAL SUBCUT ONE (07:00)
[2017-03-08] MEDS ORDERED: KETOROLAC TROMETHAMINE 30 MG VIAL IVP ONE (07:00)
[2017-03-08 07:25] LABS: BASOPHILS % (AUTO) 0.6 % (0.0-2.0); EOSINOPHILS # (AUTO) 0.1 K/uL (0.0-0.4); EOSINOPHILS % (AUTO) 1.6 % (0.0-4.0); HEMATOCRIT 35.9 % (36-54); HEMOGLOBIN 12.2 g/dL (14.0-18.0); LYMPHOCYTES # (AUTO) 1.3 K/uL (1.0-5.5); LYMPHOCYTES % (AUTO) 36.1 % (20.5-51.5); MEAN CORPUSCULAR HEMOGLOBIN 33 pg (27-31); MEAN CORPUSCULAR HGB CONC 34 % (32-36); MEAN CORPUSCULAR VOLUME 96 fL (79.0-98.0); MONOCYTES # (AUTO) 0.4 K/uL (0.0-1.0); MONOCYTES % (AUTO) 11.3 % (1.7-9.3); NEUTROPHILS # (AUTO) 1.8 K/uL (1.8-7.7); NEUTROPHILS % (AUTO) 50.4 % (40.0-70.0); PLATELET COUNT (AUTO) 175 K/uL (130-430); RED BLOOD CELL COUNT(AUTO) 3.74 MIL/uL (4.2-6.2); RED CELL DISTRIBUTION WIDTH 11.2 % (9.0-15.0); WHITE BLOOD COUNT (AUTO) 3.6 K/uL (4.8-10.8)
[2017-03-08 07:56] LABS: CALCIUM 8.2 mg/dL (8.4-11.0); CREATININE 1.44 mg/dL (0.55-1.30); PHOSPHORUS 3.3 mg/dL (2.7-4.5); POTASSIUM 3.3 mmol/L (3.5-5.1)
[2017-03-08] MEDS: VALSARTAN 80 MG TABLET (DIOVAN) PO SCH (09:00)
[2017-03-08] MEDS: DOXAZOSIN MESYLATE 2 MG TABLET PO SCH (09:00)
[2017-03-08] MEDS: HYDROCHLOROTHIAZIDE 25 MG TABLET (HCTZ) PO SCH (09:00)
[2017-03-08] MEDS: LACTULOSE 20 GM/30 ML UDC PO SCH ×2 (09:54→21:00)
[2017-03-08] MEDS: MULTIVITAMINS TAB 1 TABLET PO SCH (09:58)
[2017-03-08] MEDS: PANTOPRAZOLE SODIUM 40 MG/VIAL (PROTONIX) IVP SCH (09:58)
[2017-03-08] MEDS: ASPIRIN 81 MG TAB.CHEW PO SCH (09:58)
[2017-03-08] MEDS: LORATADINE 10 MG TABLET PO SCH (09:58)
[2017-03-08] MEDS: DOCUSATE SODIUM 100 MG CAPSULE PO SCH ×2 (09:58→21:24)
[2017-03-08] MEDS: ODEFSEY PO SCH (11:53)
[2017-03-08 12:17] VITALS: BP_SYST 107
--- NOTE | 2017-03-08 14:50 | NUR ---
DC Planning: S/W dr. Stone. Plan to dc pt. home pending cultures result and the ID reeval.
[2017-03-08 16:00] VITALS: BP_SYST 107
[2017-03-08] MEDS: ONDANSETRON HCL 4 MG/2 ML VIAL IVP PRN (17:22)
--- NOTE | 2017-03-08 19:40 | NUR ---
Opening note Report was endorsed by day nurse at bedside. Patient is laying in bed no signs of distress breathing is equal and non labored. Patient shows no signs of distress.educated concrete inspector light patient is refusing bed alarm at this time. will continue to monitor.
[2017-03-08 21:00] VITALS: BP_SYST 108
[2017-03-08] MEDS: ATORVASTATIN 10 MG TABLET PO SCH (21:24)
--- NOTE | 2017-03-08 21:30 | NUR ---
Medication Patient scheduled medication given per order please see EMAR. Patient shows no signs of distress breathing is equal and non labored. Patient educated data migration lead light and safety refusing bed alarm at this time. Will continue to monitor.
--- NOTE | 2017-03-08 22:30 | NUR ---
Medication Patients scheduled medication given please see EMAR. Patients IV site leaking removed LT AC 20 nery iv catheter intact. Started new IV to left Forearm 22 G good blood return flushing well. Will continue to monitor. Patient shows no signs of distress breathing is equal and non labored.
[2017-03-08] MEDS: HYDROcodone/ACETAMIN 5-325 MG TAB (NORCO/ VICODIN) PO PRN (23:09)
--- NOTE | 2017-03-08 23:10 | NUR ---
Pain medication Patient complains of pain medicated as order Please see EMAR.Patient educated care transitions manager light and safety. Patient is refusing bed alarm at this time. Educated to call for assistance. Patient breathing is equal and non labored. will continue to monitor.
[2017-03-09] VITALS (7 sets, daily range): BP systolic 98–141
--- NOTE | 2017-03-09 01:30 | NUR ---
RN rounding Patient appears to be resting with eyes closed visible chest rise and fall. breathing is equal and non labored. No signs of distress, safety precatuions in place bed alarm refused. call light is with patient will continue to monitor.
[2017-03-09] MEDS: SULFAMETHOXAZOLE /TRIMETHOPRIM 30 ML in D5W 500 ML IV SCH ×3 (03:26→18:33)
--- NOTE | 2017-03-09 03:26 | NUR ---
Medication Patient received scheduled medication. Patient educated containers sales representative light. Patient has call light with him, safety precautions in place. refusing bed alarm at this time.no signs of distress, breathing is equal and even. will continue to monitor.
[2017-03-09] MEDS: D5W IV SCH ×3 (06:27→23:17)
[2017-03-09] MEDS: ACYCLOVIR IV SCH ×3 (06:27→23:17)
--- NOTE | 2017-03-09 06:40 | NUR ---
Medication/RN Closing note Patients scheduled medication given per order please see EMAR. Patient is laying in bed with eyes closed visible chest rise and fall. No signs of distress and breathing is non labored. Call light is with patient. Patient is stable at this time. Will endorse report to day nurse at bedside.
[2017-03-09 07:18] LABS: BASOPHILS % (AUTO) 0.6 % (0.0-2.0); EOSINOPHILS # (AUTO) 0.1 K/uL (0.0-0.4); EOSINOPHILS % (AUTO) 1.9 % (0.0-4.0); HEMATOCRIT 34.3 % (36-54); HEMOGLOBIN 11.7 g/dL (14.0-18.0); LYMPHOCYTES # (AUTO) 1.2 K/uL (1.0-5.5); LYMPHOCYTES % (AUTO) 34.6 % (20.5-51.5); MEAN CORPUSCULAR HEMOGLOBIN 33 pg (27-31); MEAN CORPUSCULAR HGB CONC 34 % (32-36); MEAN CORPUSCULAR VOLUME 96 fL (79.0-98.0); MONOCYTES # (AUTO) 0.4 K/uL (0.0-1.0); MONOCYTES % (AUTO) 11.1 % (1.7-9.3); NEUTROPHILS # (AUTO) 1.6 K/uL (1.8-7.7); NEUTROPHILS % (AUTO) 51.8 % (40.0-70.0); PLATELET COUNT (AUTO) 181 K/uL (130-430); RED BLOOD CELL COUNT(AUTO) 3.57 MIL/uL (4.2-6.2); RED CELL DISTRIBUTION WIDTH 11.8 % (9.0-15.0); WHITE BLOOD COUNT (AUTO) 3.3 K/uL (4.8-10.8)
[2017-03-09] MEDS: HYDROcodone/ACETAMIN 5-325 MG TAB (NORCO/ VICODIN) PO PRN ×2 (07:51→18:33)
--- NOTE | 2017-03-09 08:00 | NUR ---
NOTE PT SITTING UP IN BED EATING HIS BREAKFAST. NO SOB/RESP DISTRESS WAS NOTED AT THIS TIME. PT WAS GIVEN PAIN MEDICATION AT THIS TIME FOR SEVERE HEADACHE. IVF'S INFUSING WELL THROUGH LEFT FOREARM IV SITE. NO NEEDS NOTED. CALL LIGHT WITHIN REACH.
[2017-03-09 08:04] LABS: CALCIUM 7.8 mg/dL (8.4-11.0); CREATININE 1.59 mg/dL (0.55-1.30); PHOSPHORUS 3.2 mg/dL (2.7-4.5); POTASSIUM 3.9 mmol/L (3.5-5.1)
[2017-03-09] MEDS: PANTOPRAZOLE SODIUM 40 MG/VIAL (PROTONIX) IVP SCH (08:38)
[2017-03-09] MEDS: DOXAZOSIN MESYLATE 2 MG TABLET PO SCH (08:38)
[2017-03-09] MEDS: HYDROCHLOROTHIAZIDE 25 MG TABLET (HCTZ) PO SCH (08:39)
[2017-03-09] MEDS: LORATADINE 10 MG TABLET PO SCH (08:39)
[2017-03-09] MEDS: MULTIVITAMINS TAB 1 TABLET PO SCH (08:39)
[2017-03-09] MEDS: DOCUSATE SODIUM 100 MG CAPSULE PO SCH ×2 (08:39→20:51)
[2017-03-09] MEDS: VALSARTAN 80 MG TABLET (DIOVAN) PO SCH (08:40)
[2017-03-09] MEDS: ASPIRIN 81 MG TAB.CHEW PO SCH (08:40)
[2017-03-09] MEDS: LACTULOSE 20 GM/30 ML UDC PO SCH ×2 (08:40→20:51)
--- NOTE | 2017-03-09 10:00 | NUR ---
NOTE PT RESTING IN BED. DENIES ANY NEEDS AT THIS TIME. CALL LIGHT WITHIN REACH.
[2017-03-09] MEDS: ODEFSEY PO SCH (11:25)
--- NOTE | 2017-03-09 12:00 | NUR ---
NOTE PT REC'D HIS IVPB ANTIBIOTIC AND BLOOD SUGAR CHECK AT THIS TIME. PAIN TOLERABLE AT THIS TIME. NO NEEDS NOTED. CALL LIGHT WITHIN REACH.
--- NOTE | 2017-03-09 14:05 | NUR ---
NOTE PT SITTING UP IN BED TALKING ON THE PHONE. HAS VISITOR AT BEDSIDE AT THIS TIME. NO NEEDS NOTED. CALL LIGHT WITHIN REACH.
--- NOTE | 2017-03-09 16:00 | NUR ---
NOTE PT SITTING UP IN BED TALKING ON THE PHONE. NO NEEDS NOTED. NO SOB/RESP DISTRESS NOTED. PAIN AT TOLERABLE LEVEL AT THIS TIME. CALL LIGHT WITHIN REACH.
--- NOTE | 2017-03-09 18:15 | NUR ---
NOTE PT RESTING IN BED TALKING ON THE PHONE TO FRIENDS AND FAMILY. IVF'S INFUSING WELL THROUGH LEFT FOREARM IV SITE. NO SOB/RESP DISTRESS NOTED. PAIN TOLERABLE AT THIS TIME. NO NEEDS NOTED. CALL LIGHT WITHIN REACH.
--- NOTE | 2017-03-09 18:25 | NUR ---
NOTE PT STATED THAT HIS 2 BOWEL MOVEMENTS WERE FORMED AND SOFT, NOT LOOSE AND WATERY, AND HE DID NOT THINK STOOL SPECIMEN FOR C-DIFF WAS ACCEPTABLE AT THIS TIME. NOT COLLECTED AT THIS SHIFT. PT AMBULATES TO RESTROOM INDEPENDENTLY TO VOID AND HAVE BOWEL MOVEMENTS.
[2017-03-09] MEDS: ONDANSETRON HCL 4 MG/2 ML VIAL IVP PRN (18:46)
--- NOTE | 2017-03-09 20:00 | NUR ---
pt.re assigned.i am to continue w/the pt's care for the remainder of the shift.it was convey that nsg to collect stool for c-diff.pt.presented formed stool.i is re-iterated to the pt.to call nsg to assessed all stool samples. v/s assessed;values w/in normal limits:b/p presents hypo-tensive level.i have conveyed to the pt.snacks are available.call sammi w/in the pt's reach.
--- NOTE | 2017-03-09 20:30 | NUR ---
pt.assessed.blood glucose assessed:93mg/dl.pt.has requested a snack.i have provided the snacks. call light w/in the pt's reach.pt.ambulated to the restroom:no stool.call light w/in the pt's reach.
[2017-03-09] MEDS: ATORVASTATIN 10 MG TABLET PO SCH (20:52)
--- NOTE | 2017-03-09 21:00 | NUR ---
2100p medications administered.the pt.had refused the administration of colace,lactulose:preference for the administration of the medications is w/in the day shift:apprised md in the am if medications can be scheduled w/in day shift hours.call clevelucio w/in the pt's reach.
--- NOTE | 2017-03-09 22:00 | NUR ---
pt.assessed.pt.requested snacks pt.stated he has sensed the symptoms of hypoglycemia;pt.did not requests the blood glucosed to be assessed:snacks were adequate.iv:antiviral:zovirax administered.call light w/in the pt's reach.
--- NOTE | 2017-03-09 22:30 | NUR ---
pt.assessed post prandial;snack.pt.states he feels better.no ther requests @this hour. call light w/in the pt's reach.
[2017-03-10] VITALS: BP_SYST 114
--- NOTE | 2017-03-10 | NUR ---
pt.assessed.v/s assessed:values w/in normal limits:b/p value w/in normal limits. pt.presented w/ a snack.no pain/nausea.call light w/in the pt's reach.
--- NOTE | 2017-03-10 02:00 | NUR ---
pt.assessed.pt.presents stable status.i have checked the iv line:air in line:corrected.no other requests this hour.call light w/in the pt's reach.
--- NOTE | 2017-03-10 03:00 | NUR ---
pt.assessed.no distress/discomfort manifested.pt,.presents quiescent affect;calm;asleep. bactrim:ivpb;abx;prepared and administered.call light w/in the pt's reach.
[2017-03-10] MEDS: SULFAMETHOXAZOLE /TRIMETHOPRIM 30 ML in D5W 500 ML IV SCH ×2 (03:10→11:35)
[2017-03-10] MEDS: NACL 0.9% 1,000 ML IV SCH ×2 (03:40→05:54)
[2017-03-10 04:00] VITALS: BP_SYST 110
--- NOTE | 2017-03-10 04:00 | NUR ---
pt.assessed.v/s assessed.pt.presents stable status.no c/o pain,nausea.no stool sample.i have administered the rocephine:ivpb:due@0400am.call light w/in the pt's reach.
[2017-03-10] MEDS ORDERED: ACYC800T PO (04:49)
[2017-03-10] MEDS ORDERED: IBUP-1480 PO (04:49)
[2017-03-10] MEDS: D5W IV SCH (05:55)
[2017-03-10] MEDS: ACYCLOVIR IV SCH (05:55)
--- NOTE | 2017-03-10 06:00 | NUR ---
pt.assessed.v/s assessed:values w/in normal limits:b/p values improving.no c/o pain,nausea.no stool sample. blood glucose assessed:93mg/dl.pt.presents request for ice,no food items.i have administered the zovirax: ivpb.call light w/in pt's reach.
[2017-03-10 06:36] LABS: BASOPHILS % (AUTO) 0.6 % (0.0-2.0); EOSINOPHILS % (AUTO) 1.1 % (0.0-4.0); HEMATOCRIT 37.7 % (36-54); HEMOGLOBIN 12.8 g/dL (14.0-18.0); LYMPHOCYTES # (AUTO) 1.3 K/uL (1.0-5.5); LYMPHOCYTES % (AUTO) 35.3 % (20.5-51.5); MEAN CORPUSCULAR HEMOGLOBIN 33 pg (27-31); MEAN CORPUSCULAR HGB CONC 34 % (32-36); MEAN CORPUSCULAR VOLUME 96 fL (79.0-98.0); MONOCYTES # (AUTO) 0.3 K/uL (0.0-1.0); MONOCYTES % (AUTO) 7.9 % (1.7-9.3); NEUTROPHILS # (AUTO) 2.1 K/uL (1.8-7.7); NEUTROPHILS % (AUTO) 55.1 % (40.0-70.0); PLATELET COUNT (AUTO) 201 K/uL (130-430); RED BLOOD CELL COUNT(AUTO) 3.93 MIL/uL (4.2-6.2); RED CELL DISTRIBUTION WIDTH 11.9 % (9.0-15.0); WHITE BLOOD COUNT (AUTO) 3.7 K/uL (4.8-10.8)
[2017-03-10 06:53] LABS: CALCIUM 8.3 mg/dL (8.4-11.0); CREATININE 1.31 mg/dL (0.55-1.30); PHOSPHORUS 3.1 mg/dL (2.7-4.5)
[2017-03-10 08:00] VITALS: BP_SYST 105
--- NOTE | 2017-03-10 08:00 | NUR ---
Initial Note Pt was received lying in bed fully AAO x4. Speech is clear and pt is able to make his needs known.PT compline of pain pain medication will given. No acute distress noted at this time. Skin is warm and dry to touch. No signs or symptoms of hypoglycemia or hyperglycemia noted. IVF of NS is infusing well in LFA at 40ml/hr without any signs of infiltration. Fall and safety precautions are in place.
--- NOTE | 2017-03-10 08:17 | NUR ---
PAGED PAGED CHARLOTTE GAONA AT [phone] SPOKE WITH EXCHANGE.
[2017-03-10] MEDS: LACTULOSE 20 GM/30 ML UDC PO SCH (09:00)
[2017-03-10] MEDS: HYDROcodone/ACETAMIN 5-325 MG TAB (NORCO/ VICODIN) PO PRN (09:07)
[2017-03-10] MEDS: DOCUSATE SODIUM 100 MG CAPSULE PO SCH (09:09)
[2017-03-10] MEDS: DOXAZOSIN MESYLATE 2 MG TABLET PO SCH (09:09)
[2017-03-10] MEDS: HYDROCHLOROTHIAZIDE 25 MG TABLET (HCTZ) PO SCH (09:09)
[2017-03-10] MEDS: ASPIRIN 81 MG TAB.CHEW PO SCH (09:09)
[2017-03-10] MEDS: PANTOPRAZOLE SODIUM 40 MG/VIAL (PROTONIX) IVP SCH (09:10)
[2017-03-10] MEDS: VALSARTAN 80 MG TABLET (DIOVAN) PO SCH (09:10)
[2017-03-10] MEDS: LORATADINE 10 MG TABLET PO SCH (09:10)
[2017-03-10] MEDS: MULTIVITAMINS TAB 1 TABLET PO SCH (09:10)
--- NOTE | 2017-03-10 09:31 | NUR ---
Nutrition Update Eric Scale 18 noted. Pt admitted for toxic encephalopathy. Diet: [facility] BMI: 36.1 kg/m2 RD to follow per nutrition care standards.
--- NOTE | 2017-03-10 10:00 | NUR ---
RN ROUND PT RESTING IN BED , NO SOB/RESP DISTRESS NOTED.NO NEEDS NOTED. CALL LIGHT WITHIN REACH WE WILL CONTINUE MONITORING.
--- NOTE | 2017-03-10 12:00 | NUR ---
RN ROUND PT RESTING IN BED , NO SOB/RESP DISTRESS NOTED.NO NEEDS NOTED. CALL LIGHT WITHIN REACH WE WILL DISCHARGE PT.
[2017-03-10 12:21] VITALS: BP_SYST 97
[2017-03-10] MEDS: ODEFSEY PO SCH (12:59)
[2017-03-10 13:07] VITALS: BP_SYST 97
--- NOTE | 2017-03-10 13:40 | NUR ---
NOTE PT OFF THE FLOOR VIA WHEELCHAIR. IV WAS DC'D. CATH INTACT. PT WAS GIVEN HER DISCHARGE INSTRUCTIONS AND QUESTIONS/CONCERNS WERE ANSWERED AT THIS TIME. PT DRESSED IN STREET CLOTHES. ALL BELONGINGS WERE PACKED BY PT AND HIS MOTHER. SIDE DRAWERS AND TABLE WERE CHECKED FOR BELONGINGS. NO SOB/RESP DISTRESS OR PAIN/DISCOMFORT WAS NOTED AT THIS TIME. NO NEEDS NOTED. PT STABLE.
== END 2017-03-10 13:40 | disposition home or self-care (01) | DRG 892 ==
LOC: SED 23:13 → STU 03-04 02:41 → SMU 03-07 11:20
PROVIDERS: ADMIT Family Medicine; ATTEND Family Medicine
PROC: 009U3ZZ Drainage of Spinal Canal, Percutaneous Approach (ICD-10-PCS; principal; 2017-03-05)
PROC: B01B1ZZ Fluoroscopy of Spinal Cord using Low Osmolar Contrast (ICD-10-PCS; 2017-03-05)
DX: B20 Human immunodeficiency virus [HIV] disease (principal); G92 Toxic encephalopathy; G03.0 Nonpyogenic meningitis; B00.9 Herpesviral infection, unspecified; I10 Essential (primary) hypertension; E66.9 Obesity, unspecified; K21.9 Gastro-esophageal reflux disease without esophagitis; J30.9 Allergic rhinitis, unspecified; E78.5 Hyperlipidemia, unspecified; M19.90 Unspecified osteoarthritis, unspecified site; Z91.011 Allergy to milk products; I25.2 Old myocardial infarction; Z79.899 Other long term (current) drug therapy; Z86.73 Personal history of transient ischemic attack (TIA), and cerebral infarction without residual deficits
CPT/HCPCS: 36415; 62270; 70450-TC; 71010; 80048; 80053; 80061; 81003; 82140-TC; 82150-TC; 82947-TC; 82962; 83036; 83605; 83615-TC; 83735-TC; 83880; 84100-TC; 84157-TC; 84436; 84439; 84443-TC; 84479; 84484; 85025; 85048; 85610-TC; 85730-TC; 86788; 86789; 87040-TC; 87070-TC; 87081; 87205-TC; 87529; 87899; 89051-TC; 93005; 93306; 96365; 96375; 99285; C9113; J0133; J0696; J1815; J1885; J2001; J2270; J2405; J2543; J3030; J3490; J7030; J7060; J8597

== ENCOUNTER 2017-05-15 19:22 | Emergency (ER) | payer MEDICAID ==
[2017-03-09 14:03] VITALS: Ht 180.3 cm; Wt 117.9 kg
[~2017-05-15] VITALS: Ht 180.3 cm; Wt 117.9 kg
[~2017-05-15 19:22] MED LIST changes: +IBUP-1480 PO; +LORA10CA PO
[2017-05-15 19:38] VITALS: BP 141/83; PULSE 77; RESP 18; TEMP 97.6; O2SAT 98
[2017-05-15] MEDS ORDERED: cefTRIAXone 1 GM in LIDOCAINE 1%, 20 ML MDV 2.1 ML IM ONE (22:00)
[2017-05-15] MEDS ORDERED: KETOROLAC TROMETHAMINE 60 MG/2 ML VIAL IM ONE (22:00)
[2017-05-15 22:07] LABS: BASOPHILS % (AUTO) 0.5 % (0.0-2.0); EOSINOPHILS # (AUTO) 0.1 K/uL (0.0-0.4); EOSINOPHILS % (AUTO) 2.3 % (0.0-4.0); HEMATOCRIT 38.3 % (36-54); HEMOGLOBIN 13.1 g/dL (14.0-18.0); LYMPHOCYTES # (AUTO) 1.8 K/uL (1.0-5.5); LYMPHOCYTES % (AUTO) 41.4 % (20.5-51.5); MEAN CORPUSCULAR HEMOGLOBIN 32 pg (27-31); MEAN CORPUSCULAR HGB CONC 34 % (32-36); MEAN CORPUSCULAR VOLUME 95 fL (79.0-98.0); MONOCYTES # (AUTO) 0.5 K/uL (0.0-1.0); MONOCYTES % (AUTO) 10.6 % (1.7-9.3); NEUTROPHILS % (AUTO) 45.2 % (40.0-70.0); PLATELET COUNT (AUTO) 200 K/uL (130-430); RED BLOOD CELL COUNT(AUTO) 4.06 MIL/uL (4.2-6.2); RED CELL DISTRIBUTION WIDTH 12.4 % (9.0-15.0); WHITE BLOOD COUNT (AUTO) 4.4 K/uL (4.8-10.8)
[2017-05-15 22:24] LABS: CALCIUM 9.6 mg/dL (8.4-11.0); CREATININE 1.1 mg/dL (0.55-1.30); POTASSIUM 3.8 mmol/L (3.5-5.1)
[2017-05-15 22:40] LABS: ALBUMIN 3.7 g/dL (3.4-4.8); TOTAL BILIRUBIN 0.5 mg/dL (0.0-1.0)
[2017-05-15 22:51] VITALS: BP 138/86; PULSE 79; RESP 18; TEMP 97.6; O2SAT 98
[2017-05-16] MEDS ORDERED: ACYC400T PO (13:09)
[2017-05-16] MEDS ORDERED: EMTR1TAB18 PO (13:09)
[2017-05-16] MEDS ORDERED: ATEN-41 PO (13:09)
== END 2017-05-15 22:51 | disposition home or self-care (01) ==
LOC: SED 19:22
DX: K12.2 Cellulitis and abscess of mouth (principal); I10 Essential (primary) hypertension; Z86.73 Personal history of transient ischemic attack (TIA), and cerebral infarction without residual deficits; I25.2 Old myocardial infarction; Z91.011 Allergy to milk products; Z79.899 Other long term (current) drug therapy
CPT/HCPCS: 36415; 70450; 70486; 80053; 83605; 85025; 96372; 99285; J0696; J1885; J2001

== ENCOUNTER 2017-05-16 09:43 | Inpatient (IN) | payer MEDICAID ==
[~2017-05-16] VITALS: Ht 180.3 cm; Wt 117.9 kg
[~2017-05-16 09:43] MED LIST changes: -ASPI81TA2 PO; -AZIT600T PO; -CHOL100024 PO; -HYDR-4023 PO; -LIP10 PO; -LORA10CA PO; -MULT-1089 PO; -NORVIR; -PRESISTA; -SULF1TAB47 PO; -VALS80TA2 PO
[2017-05-16 10:05] VITALS: BP_SYST 131
[2017-05-16] MEDS ORDERED: LINEZOLID 300 ML IV ONE (10:30)
[2017-05-16] MEDS ORDERED: MEROPENEM 1 GM in NS 100 ML IV ONE (10:30)
[2017-05-16] MEDS ORDERED: NACL 0.9% 1,000 ML IV ONE (11:00)
[2017-05-16] MEDS ORDERED: KETOROLAC TROMETHAMINE 30 MG VIAL IVP ONE (11:00)
[2017-05-16 11:03] LABS: CALCIUM 9.3 mg/dL (8.4-11.0); CREATININE 1.26 mg/dL (0.55-1.30); POTASSIUM 3.9 mmol/L (3.5-5.1)
[2017-05-16 11:07] LABS: ALBUMIN 3.9 g/dL (3.4-4.8); TOTAL BILIRUBIN 0.7 mg/dL (0.0-1.0)
[2017-05-16] MEDS ORDERED: MEROPENEM 500 MG VIAL IV ONE (11:07)
[2017-05-16 11:08] LABS: BASOPHILS % (AUTO) 0.6 % (0.0-2.0); EOSINOPHILS # (AUTO) 0.1 K/uL (0.0-0.4); HEMATOCRIT 43.6 % (36-54); HEMOGLOBIN 14.4 g/dL (14.0-18.0); LYMPHOCYTES # (AUTO) 0.9 K/uL (1.0-5.5); LYMPHOCYTES % (AUTO) 21.1 % (20.5-51.5); MEAN CORPUSCULAR HEMOGLOBIN 32 pg (27-31); MEAN CORPUSCULAR HGB CONC 33 % (32-36); MEAN CORPUSCULAR VOLUME 96 fL (79.0-98.0); MONOCYTES # (AUTO) 0.4 K/uL (0.0-1.0); MONOCYTES % (AUTO) 9.9 % (1.7-9.3); NEUTROPHILS # (AUTO) 2.8 K/uL (1.8-7.7); NEUTROPHILS % (AUTO) 66.4 % (40.0-70.0); PLATELET COUNT (AUTO) 203 K/uL (130-430); RED BLOOD CELL COUNT(AUTO) 4.56 MIL/uL (4.2-6.2); RED CELL DISTRIBUTION WIDTH 12.9 % (9.0-15.0); WHITE BLOOD COUNT (AUTO) 4.2 K/uL (4.8-10.8)
[2017-05-16 12:13] VITALS: BP_SYST 136
[2017-05-16] MEDS ORDERED: ACYC400T PO (13:09)
[2017-05-16] MEDS ORDERED: ATEN-41 PO (13:09)
[2017-05-16] MEDS ORDERED: EMTR1TAB18 PO (13:09)
[2017-05-16] MEDS: DOXAZOSIN MESYLATE 2 MG TABLET PO SCH (14:00)
[2017-05-16] MEDS ORDERED: CHOLECALCIFEROL 2000 UNIT PO SCH (14:00)
[2017-05-16] MEDS: LORATADINE 10 MG TABLET PO SCH (14:00)
[2017-05-16] MEDS ORDERED: MELOXICAM 7.5 MG TABLET PO SCH (14:00)
[2017-05-16] MEDS: HYDROCHLOROTHIAZIDE 25 MG TABLET (HCTZ) PO SCH (14:00)
[2017-05-16] MEDS ORDERED: [UNRECOGNIZED DRUG - OTHER] PO SCH (14:00)
[2017-05-16] MEDS ORDERED: [UNRECOGNIZED DRUG - MIXTURE] PO SCH (14:00)
[2017-05-16] MEDS: ATENOLOL 25 MG TABLET(TENORMIN) PO SCH (14:00)
[2017-05-16] MEDS: ACYCLOVIR 400 MG TABLET PO SCH ×2 (14:00→20:32)
[2017-05-16] MEDS: VALSARTAN 80 MG TABLET (DIOVAN) PO SCH (14:00)
[2017-05-16] MEDS: CHOLECALCIFEROL (VITAMIN D3) 2,000 UNIT TABLET PO SCH (15:00)
[2017-05-16] MEDS ORDERED: ATENOLOL 25 MG TABLET(TENORMIN) PO ONE (15:45)
[2017-05-16] MEDS ORDERED: ACYCLOVIR 400 MG TABLET PO ONE (15:45)
[2017-05-16] MEDS ORDERED: VALSARTAN 80 MG TABLET (DIOVAN) PO ONE (15:45)
[2017-05-16] MEDS ORDERED: DOXAZOSIN MESYLATE 2 MG TABLET PO ONE (15:45)
[2017-05-16] MEDS ORDERED: LORATADINE 10 MG TABLET PO ONE (15:45)
[2017-05-16] MEDS ORDERED: CHOLECALCIFEROL (VITAMIN D3) 2,000 UNIT TABLET PO ONE (15:45)
[2017-05-16] MEDS ORDERED: HYDROCHLOROTHIAZIDE 25 MG TABLET (HCTZ) PO ONE (15:45)
[2017-05-16] MEDS ORDERED: ACETAMINOPHEN 325 MG TABLET PO PRN (16:45)
[2017-05-16 17:16] VITALS: BP_SYST 110
[2017-05-16] MEDS: MORPHINE 4 MG/ML INJ. SYRINGE IVP PRN ×2 (17:21→23:05)
[2017-05-16] MEDS: AMPICILLIN SODIUM/SULBACTAM NA 3 GM in NS 100 ML IV SCH ×2 (18:12→23:06)
[2017-05-16 20:00] VITALS: BP_SYST 102
[2017-05-16] MEDS: ATORVASTATIN 10 MG TABLET PO SCH (20:26)
[2017-05-16] MEDS: SULFAMETHOXAZOLE/TRIMETHOPR DS 1 TABLET PO SCH (20:31)
[2017-05-16] MEDS: FAMOTIDINE 20 MG TABLET PO SCH (20:31)
[2017-05-16] MEDS ORDERED: NON-FORMULARY MEDICATION (Ranitidine Hcl (Zantac) 150 MG) PO SCH (21:00)
[2017-05-17] VITALS (8 sets, daily range): BP systolic 100–124
[2017-05-17] MEDS: MORPHINE 4 MG/ML INJ. SYRINGE IVP PRN ×4 (04:12→22:34)
[2017-05-17] MEDS: AMPICILLIN SODIUM/SULBACTAM NA 3 GM in NS 100 ML IV SCH ×3 (05:22→17:33)
[2017-05-17] MEDS: CHOLECALCIFEROL (VITAMIN D3) 2,000 UNIT TABLET PO SCH (09:00)
[2017-05-17] MEDS: LORATADINE 10 MG TABLET PO SCH (09:01)
[2017-05-17] MEDS: VALSARTAN 80 MG TABLET (DIOVAN) PO SCH (09:01)
[2017-05-17] MEDS: DOXAZOSIN MESYLATE 2 MG TABLET PO SCH (09:01)
[2017-05-17] MEDS: HYDROCHLOROTHIAZIDE 25 MG TABLET (HCTZ) PO SCH (09:02)
[2017-05-17] MEDS: FAMOTIDINE 20 MG TABLET PO SCH ×2 (09:02→22:33)
[2017-05-17] MEDS: ACYCLOVIR 400 MG TABLET PO SCH ×2 (09:02→22:33)
[2017-05-17] MEDS: ATENOLOL 25 MG TABLET(TENORMIN) PO SCH (09:03)
[2017-05-17] MEDS: ODEFSEY PO SCH (09:05)
[2017-05-17] MEDS: [UNRECOGNIZED DRUG - OTHER] PO SCH (09:06)
[2017-05-17] MEDS: MULTIVITAMIN W MINERALS PO SCH (09:06)
[2017-05-17] MEDS ORDERED: FLUCONAZOLE 200 MG TABLET (DIFLUCAN) PO ONE (13:30)
[2017-05-17] MEDS ORDERED: BARIUM SULFATE 135 ML SUSP.RECON (E-Z-HD) PO ONE (13:50)
[2017-05-17] MEDS: NYSTATIN 500,000 UNITS/5 ML UDC PO SCH ×2 (14:43→17:37)
[2017-05-17] MEDS: SULFAMETHOXAZOLE/TRIMETHOPR DS 1 TABLET PO SCH (22:33)
[2017-05-17] MEDS: ATORVASTATIN 10 MG TABLET PO SCH (22:33)
[2017-05-18] MEDS: NYSTATIN 500,000 UNITS/5 ML UDC PO SCH ×4 (01:20→17:19)
[2017-05-18] MEDS: AMPICILLIN SODIUM/SULBACTAM NA 3 GM in NS 100 ML IV SCH ×4 (01:21→17:20)
[2017-05-18 03:40] VITALS: BP_SYST 100
[2017-05-18] MEDS: MORPHINE 2 MG/ML INJ. SYRINGE IVP PRN (06:52)
[2017-05-18 08:09] VITALS: BP_SYST 116
[2017-05-18] MEDS: FLUCONAZOLE 100 MG TABLET (DIFLUCAN) PO SCH (08:38)
[2017-05-18] MEDS: DOXAZOSIN MESYLATE 2 MG TABLET PO SCH (08:38)
[2017-05-18] MEDS: LORATADINE 10 MG TABLET PO SCH (08:39)
[2017-05-18] MEDS: VALSARTAN 80 MG TABLET (DIOVAN) PO SCH (08:39)
[2017-05-18] MEDS: ACYCLOVIR 400 MG TABLET PO SCH ×2 (08:39→21:38)
[2017-05-18] MEDS: ATENOLOL 25 MG TABLET(TENORMIN) PO SCH (08:40)
[2017-05-18] MEDS: HYDROCHLOROTHIAZIDE 25 MG TABLET (HCTZ) PO SCH (08:40)
[2017-05-18] MEDS: CHOLECALCIFEROL (VITAMIN D3) 2,000 UNIT TABLET PO SCH (08:40)
[2017-05-18] MEDS: FAMOTIDINE 20 MG TABLET PO SCH ×2 (08:40→21:38)
[2017-05-18] MEDS: ODEFSEY PO SCH (08:43)
[2017-05-18] MEDS: MULTIVITAMIN W MINERALS PO SCH (08:44)
[2017-05-18] MEDS: [UNRECOGNIZED DRUG - OTHER] PO SCH (08:44)
[2017-05-18 12:00] VITALS: BP_SYST 107
[2017-05-18] MEDS: MORPHINE 4 MG/ML INJ. SYRINGE IVP PRN ×2 (14:22→21:44)
[2017-05-18 16:58] VITALS: BP_SYST 124
[2017-05-18] MEDS: ATORVASTATIN 10 MG TABLET PO SCH (21:38)
[2017-05-18] MEDS: SULFAMETHOXAZOLE/TRIMETHOPR DS 1 TABLET PO SCH (21:38)
[2017-05-19] MEDS: NYSTATIN 500,000 UNITS/5 ML UDC PO SCH ×5 (00:01→23:30)
[2017-05-19] MEDS: AMPICILLIN SODIUM/SULBACTAM NA 3 GM in NS 100 ML IV SCH ×5 (00:02→23:25)
[2017-05-19 00:55] VITALS: BP_SYST 116
[2017-05-19] MEDS: MORPHINE 4 MG/ML INJ. SYRINGE IVP PRN ×3 (01:56→21:18)
[2017-05-19 04:30] VITALS: BP_SYST 110
[2017-05-19 08:00] VITALS: BP_SYST 114
[2017-05-19] MEDS: DOXAZOSIN MESYLATE 2 MG TABLET PO SCH (09:01)
[2017-05-19] MEDS: FLUCONAZOLE 100 MG TABLET (DIFLUCAN) PO SCH (09:02)
[2017-05-19] MEDS: ATENOLOL 25 MG TABLET(TENORMIN) PO SCH (09:02)
[2017-05-19] MEDS: VALSARTAN 80 MG TABLET (DIOVAN) PO SCH (09:03)
[2017-05-19] MEDS: LORATADINE 10 MG TABLET PO SCH (09:03)
[2017-05-19] MEDS: ACYCLOVIR 400 MG TABLET PO SCH ×2 (09:03→20:11)
[2017-05-19] MEDS: FAMOTIDINE 20 MG TABLET PO SCH ×2 (09:03→20:11)
[2017-05-19] MEDS: HYDROCHLOROTHIAZIDE 25 MG TABLET (HCTZ) PO SCH (09:04)
[2017-05-19] MEDS: ODEFSEY PO SCH (09:06)
[2017-05-19] MEDS: CHOLECALCIFEROL (VITAMIN D3) 2,000 UNIT TABLET PO SCH (09:06)
[2017-05-19] MEDS: [UNRECOGNIZED DRUG - OTHER] PO SCH (09:07)
[2017-05-19] MEDS: MULTIVITAMIN W MINERALS PO SCH (09:07)
[2017-05-19] MEDS: MORPHINE 2 MG/ML INJ. SYRINGE IVP PRN ×2 (09:56→15:47)
[2017-05-19 11:33] VITALS: BP_SYST 127
[2017-05-19 15:29] VITALS: BP_SYST 95
[2017-05-19 16:29] LABS: HEMATOCRIT 43.4 % (36-54); HEMOGLOBIN 14.1 g/dL (14.0-18.0); MEAN CORPUSCULAR HEMOGLOBIN 31 pg (27-31); MEAN CORPUSCULAR HGB CONC 33 % (32-36); MEAN CORPUSCULAR VOLUME 96 fL (79.0-98.0); PLATELET COUNT (AUTO) 208 K/uL (130-430); RED BLOOD CELL COUNT(AUTO) 4.54 MIL/uL (4.2-6.2); RED CELL DISTRIBUTION WIDTH 12.2 % (9.0-15.0)
[2017-05-19 16:36] LABS: WHITE BLOOD COUNT (AUTO) 3.3 K/uL (4.8-10.8)
[2017-05-19 16:40] LABS: CALCIUM 9.5 mg/dL (8.4-11.0); CREATININE 1.25 mg/dL (0.55-1.30)
[2017-05-19 16:45] LABS: ATYPICAL LYMPHOCYTES % 8 % (0-0); BAND % (MANUAL) 0 % (0-6); BASOPHILS % (MANUAL) 0 % (0-2); EOSINOPHILS % (MANUAL) 0 % (0-7); LYMPHOCYTES % (MANUAL) 39 % (20-46); MONOCYTES % (MANUAL) 5 % (0-11)
[2017-05-19] MEDS: ATORVASTATIN 10 MG TABLET PO SCH (20:11)
[2017-05-19] MEDS: SULFAMETHOXAZOLE/TRIMETHOPR DS 1 TABLET PO SCH (20:11)
[2017-05-20 01:20] VITALS: BP_SYST 107
[2017-05-20] MEDS: MORPHINE 4 MG/ML INJ. SYRINGE IVP PRN ×2 (04:38→13:43)
[2017-05-20 04:53] VITALS: BP_SYST 111
[2017-05-20] MEDS: NYSTATIN 500,000 UNITS/5 ML UDC PO SCH ×2 (05:35→11:31)
[2017-05-20] MEDS: AMPICILLIN SODIUM/SULBACTAM NA 3 GM in NS 100 ML IV SCH ×2 (05:36→11:31)
[2017-05-20 07:47] VITALS: BP_SYST 109
[2017-05-20] MEDS: CHOLECALCIFEROL (VITAMIN D3) 2,000 UNIT TABLET PO SCH (08:25)
[2017-05-20] MEDS: DOXAZOSIN MESYLATE 2 MG TABLET PO SCH (08:25)
[2017-05-20] MEDS: ACYCLOVIR 400 MG TABLET PO SCH (08:26)
[2017-05-20] MEDS: LORATADINE 10 MG TABLET PO SCH (08:26)
[2017-05-20] MEDS: ATENOLOL 25 MG TABLET(TENORMIN) PO SCH (08:26)
[2017-05-20] MEDS: FLUCONAZOLE 100 MG TABLET (DIFLUCAN) PO SCH (08:26)
[2017-05-20] MEDS: HYDROCHLOROTHIAZIDE 25 MG TABLET (HCTZ) PO SCH (08:27)
[2017-05-20] MEDS: VALSARTAN 80 MG TABLET (DIOVAN) PO SCH (08:27)
[2017-05-20] MEDS: FAMOTIDINE 20 MG TABLET PO SCH (08:27)
[2017-05-20] MEDS: MORPHINE 2 MG/ML INJ. SYRINGE IVP PRN (08:44)
[2017-05-20] MEDS: ODEFSEY PO SCH (08:44)
[2017-05-20] MEDS: [UNRECOGNIZED DRUG - OTHER] PO SCH (08:44)
[2017-05-20] MEDS: MULTIVITAMIN W MINERALS PO SCH (08:44)
[2017-05-20 11:49] VITALS: BP_SYST 115
[2017-05-20 13:53] VITALS: BP_SYST 99
== END 2017-05-20 15:45 | disposition home or self-care (01) | DRG 894 ==
LOC: SED 09:43 → SMU 11:25
PROVIDERS: ADMIT Internal Medicine; ATTEND Internal Medicine
DX: B20 Human immunodeficiency virus [HIV] disease (principal); L03.221 Cellulitis of neck; I10 Essential (primary) hypertension; K12.2 Cellulitis and abscess of mouth; R13.10 Dysphagia, unspecified; E11.9 Type 2 diabetes mellitus without complications; E66.9 Obesity, unspecified; E78.5 Hyperlipidemia, unspecified; M19.90 Unspecified osteoarthritis, unspecified site; K05.4 Periodontosis; Z79.899 Other long term (current) drug therapy; Z88.8 Allergy status to other drugs, medicaments and biological substances; Z68.36 Body mass index [BMI] 36.0-36.9, adult
CPT/HCPCS: 36415; 74220-TC; 80048; 80053; 83605; 85007; 85025; 85027; 87040-TC; 96365; 96367; 96375; 99285; J0295; J1885; J2020; J2185; J2270; J7040; J7050

== ENCOUNTER 2017-08-19 16:47 | Emergency (ER) | payer MEDICAID ==
[~2017-08-19] VITALS: Ht 180.3 cm; Wt 124.7 kg
[~2017-08-19 16:47] MED LIST changes: +ACYC400T PO; -ACYC800T PO; -ASPI-862 PO; +ATEN-41 PO; -BETA15OI7 TP; -CICL34.62 TP; -DARU400T2 PO; -DIF100 PO; -EMTR1TAB12; +EMTR1TAB18 PO; -EMTR1TAB9 PO; -FLUT15CR TP; -IBUP-1480 PO; -NIZCR60 TP; -RALT400T5; -TRIA10.8 NS
[2017-08-19 17:49] VITALS: BP_SYST 163
[2017-08-19 20:29] LABS: CALCIUM 10.1 mg/dL (8.4-11.0); CREATININE 1.29 mg/dL (0.55-1.30); POTASSIUM 3.9 mmol/L (3.5-5.1)
[2017-08-19 20:33] LABS: INR 0.9 (0.80-1.20); PROTHROMBIN TIME 9.3 SECS (9.5-12.5)
[2017-08-19 20:34] LABS: ALBUMIN 4.4 g/dL (3.4-4.8); TOTAL BILIRUBIN 0.4 mg/dL (0.0-1.0)
[2017-08-19 20:35] LABS: BASOPHILS % (AUTO) 0.5 % (0.0-2.0); EOSINOPHILS # (AUTO) 0.1 K/uL (0.0-0.4); EOSINOPHILS % (AUTO) 1.7 % (0.0-4.0); HEMATOCRIT 43.2 % (36-54); HEMOGLOBIN 14.1 g/dL (14.0-18.0); LYMPHOCYTES # (AUTO) 2.1 K/uL (1.0-5.5); LYMPHOCYTES % (AUTO) 27.7 % (20.5-51.5); MEAN CORPUSCULAR HEMOGLOBIN 31 pg (27-31); MEAN CORPUSCULAR HGB CONC 33 % (32-36); MEAN CORPUSCULAR VOLUME 95 fL (79.0-98.0); MONOCYTES # (AUTO) 0.7 K/uL (0.0-1.0); MONOCYTES % (AUTO) 9.5 % (1.7-9.3); NEUTROPHILS # (AUTO) 4.7 K/uL (1.8-7.7); NEUTROPHILS % (AUTO) 60.6 % (40.0-70.0); PLATELET COUNT (AUTO) 273 K/uL (130-430); RED BLOOD CELL COUNT(AUTO) 4.56 MIL/uL (4.2-6.2); RED CELL DISTRIBUTION WIDTH 12.3 % (9.0-15.0); WHITE BLOOD COUNT (AUTO) 7.6 K/uL (4.8-10.8)
[2017-08-19] MEDS ORDERED: IBUPROFEN 800 MG TABLET PO ONE (22:45)
[2017-08-19 23:00] VITALS: BP_SYST 151
== END 2017-08-19 23:00 | disposition home or self-care (01) ==
LOC: SED 16:47
DX: J06.9 Acute upper respiratory infection, unspecified (principal); I10 Essential (primary) hypertension; I25.2 Old myocardial infarction; Z86.73 Personal history of transient ischemic attack (TIA), and cerebral infarction without residual deficits; Z91.011 Allergy to milk products; Z79.899 Other long term (current) drug therapy
CPT/HCPCS: 36415; 71045; 80053; 85025; 85610-TC; 85730-TC; 86710; 93971; 99285

== ENCOUNTER 2017-11-13 14:36 | Emergency (ER) | payer MEDICAID ==
[~2017-11-13] VITALS: Ht 180.3 cm; Wt 118.8 kg
[~2017-11-13 14:36] MED LIST changes: +ABAC1TAB15 PO; +APIX5TAB PO; +ASPI-1063 PO; +DARU1TAB PO; -EMTR1TAB18 PO; +GABA-529 PO; +GLU850 PO; +SULF1TAB48 PO; +VITD2000 PO
[2017-11-13 14:45] VITALS: BP_SYST 142
[2017-11-13] MEDS ORDERED: BELLADONNA ALKALOIDS/PHENOBARB 5 ML UDC PO ONE (15:15)
[2017-11-13] MEDS ORDERED: LIDOCAINE VISCOUS 2%, 15 ML UDC MM ONE (15:15)
[2017-11-13] MEDS ORDERED: MAG-AL HYDROX/SIMETH 30 ML UDC PO ONE (15:15)
[2017-11-13 15:27] LABS: BILIRUBIN,URINE NEGATIVE (NEGATIVE); BLOOD, URINE NEGATIVE (NEGATIVE); CLARITY/URINE CLEAR (CLEAR); COLOR,URINE YELLOW (YELLOW); GLUCOSE,URINE NEGATIVE (NEGATIVE); KETONES,URINE NEGATIVE (NEGATIVE); LEUKOCYTE ESTERASE ,URINE NEGATIVE (NEGATIVE); NITRITE, URINE NEGATIVE (NEGATIVE); PROTEIN URINE NEGATIVE (NEGATIVE); UROBILINOGEN,URINE 0.2 (0.2-1.0)
[2017-11-13] MEDS ORDERED: PANTOPRAZOLE SODIUM 40 MG TAB PO ONE (15:45)
[2017-11-13 15:46] LABS: BACTERIA,URINE FEW /HPF (None Seen); RBC,URINE NONE SEEN /HPF (0-3); WBC,URINE 0-3 /HPF (0-3)
[2017-11-13 15:47] LABS: FINE GRANULAR CASTS,URINE 0-10 /LPF (None Seen); MUCUS,URINE 2+ /LPF (None Seen)
== END 2017-11-13 16:21 | disposition home or self-care (01) ==
LOC: SED 14:36
DX: K29.70 Gastritis, unspecified, without bleeding (principal); I10 Essential (primary) hypertension; I25.2 Old myocardial infarction; Z86.73 Personal history of transient ischemic attack (TIA), and cerebral infarction without residual deficits; Z79.82 Long term (current) use of aspirin; Z91.011 Allergy to milk products; Z79.899 Other long term (current) drug therapy
CPT/HCPCS: 81000; 93005; 99285; J2001

== ENCOUNTER 2018-01-14 22:44 | Emergency (ER) | payer MEDICAID ==
[~2018-01-14] VITALS: Ht 180.3 cm; Wt 123.4 kg
[2018-01-14 22:44] VITALS: BP_SYST 167
[~2018-01-14 22:44] MED LIST changes: -ATEN-41 PO; +CHOL100038 PO; -CHOL100053 PO; +MELO-271 PO; -MELO15TA13 PO; -MULT-900 PO; -SULF1TAB3 PO; +TRAM50TA92 PO; -VITD2000 PO
[2018-01-14] MEDS ORDERED: NACL 0.9% 1,000 ML IV ONE (22:49)
[2018-01-14] MEDS ORDERED: ASPIRIN 81 MG TAB.CHEW PO ONE (23:00)
[2018-01-14] MEDS ORDERED: KETOROLAC TROMETHAMINE 30 MG VIAL IVP ONE (23:15)
[2018-01-14 23:18] LABS: BASOPHILS % (AUTO) 0.7 % (0.0-2.0); EOSINOPHILS % (AUTO) 0.7 % (0.0-4.0); HEMATOCRIT 41.4 % (36-54); HEMOGLOBIN 13.8 g/dL (14.0-18.0); LYMPHOCYTES # (AUTO) 1.9 K/uL (1.0-5.5); LYMPHOCYTES % (AUTO) 33.9 % (20.5-51.5); MEAN CORPUSCULAR HEMOGLOBIN 31 pg (27-31); MEAN CORPUSCULAR HGB CONC 33 % (32-36); MEAN CORPUSCULAR VOLUME 93 fL (79.0-98.0); MONOCYTES # (AUTO) 0.5 K/uL (0.0-1.0); MONOCYTES % (AUTO) 8.7 % (1.7-9.3); NEUTROPHILS # (AUTO) 3.3 K/uL (1.8-7.7); PLATELET COUNT (AUTO) 232 K/uL (130-430); RED BLOOD CELL COUNT(AUTO) 4.44 MIL/uL (4.2-6.2); RED CELL DISTRIBUTION WIDTH 12.6 % (9.0-15.0); WHITE BLOOD COUNT (AUTO) 5.7 K/uL (4.8-10.8)
[2018-01-14 23:29] LABS: ANION GAP 9 (5-15); CALCIUM 8.7 mg/dL (8.4-11.0); CHLORIDE 103 mmol/L (98-107); CREATININE 1.22 mg/dL (0.55-1.30); GLUCOSE 161 mg/dL (70-99); POTASSIUM 3.3 mmol/L (3.5-5.1); SODIUM SERUM 143 mmol/L (136-145); UREA NITROGEN, BLOOD 14 mg/dL (8-21)
[2018-01-14 23:32] LABS: GFR AFRICAN AMERICAN 79 mL/min (>90)
[2018-01-14 23:33] LABS: INR 0.9 (0.80-1.20); PROTHROMBIN TIME 9.5 SECS (9.5-12.5)
[2018-01-14 23:38] LABS: ALANINE AMINOTRANSFERASE 24 U/L (12-78); ASPARTATE AMINOTRANSFERASE 16 U/L (10-37); TOTAL BILIRUBIN 0.2 mg/dL (0.0-1.0)
[2018-01-14 23:54] VITALS: BP_SYST 158
[2018-01-15] MEDS ORDERED: traMADol HCL HCL 50 MG TABLET (ULTRAM) PO ONE
== END 2018-01-14 23:54 | disposition home or self-care (01) ==
LOC: SED 22:44
DX: R07.89 Other chest pain (principal); R51 Headache; E11.9 Type 2 diabetes mellitus without complications; K21.9 Gastro-esophageal reflux disease without esophagitis; I10 Essential (primary) hypertension; I25.2 Old myocardial infarction; Z86.73 Personal history of transient ischemic attack (TIA), and cerebral infarction without residual deficits; Z79.82 Long term (current) use of aspirin; Z79.899 Other long term (current) drug therapy; Z91.011 Allergy to milk products
CPT/HCPCS: 36415; 71045; 80053; 84484; 85025; 85379; 85610; 85730; 93005; 96374; 99285; J1885; J7030

== ENCOUNTER 2018-04-30 13:16 | Emergency (ER) | payer MEDICAID ==
[~2018-04-30] VITALS: Ht 180.3 cm; Wt 125.6 kg
[~2018-04-30 13:16] MED LIST changes: -ASPI-1063 PO; +ASPI-1153 PO; -MELO-271 PO; +MELO-89 PO
[2018-04-30 13:34] VITALS: BP_SYST 131
[2018-04-30] MEDS ORDERED: KETOROLAC TROMETHAMINE 60 MG/2 ML VIAL IM ONE (15:45)
[2018-04-30] MEDS ORDERED: LIDOCAINE 1%, 20 ML MDV 20 ML ONE (16:23)
[2018-04-30 17:12] LABS: CSF APPEARANCE CLEAR (CLEAR); CSF COLOR COLORLESS (COLORLESS); CSF VOLUME 7.5 mL
[2018-04-30 17:25] LABS: CSF PROTEIN 54 mg/dL (15-45)
[2018-04-30 17:27] LABS: CSF GLUCOSE 83 mg/dL (40-70)
[2018-04-30 18:28] LABS: CSF RED BLOOD CELL COUNT #1 37 /uL (0-0); CSF WHITE BLOOD CELL COUNT #1 3 /uL (0-5)
[2018-04-30 18:29] LABS: CSF RED BLOOD CELL COUNT #4 0 /uL (0-0)
[2018-04-30 18:35] LABS: CSF WHITE BLOOD CELL COUNT #4 2 /uL (0-5)
[2018-04-30 18:52] VITALS: BP_SYST 123
== END 2018-04-30 18:52 | disposition home or self-care (01) ==
LOC: SED 13:16
DX: G44.209 Tension-type headache, unspecified, not intractable (principal); I25.2 Old myocardial infarction; K21.9 Gastro-esophageal reflux disease without esophagitis; I10 Essential (primary) hypertension; E11.9 Type 2 diabetes mellitus without complications; Z86.73 Personal history of transient ischemic attack (TIA), and cerebral infarction without residual deficits; Z90.89 Acquired absence of other organs; Z79.899 Other long term (current) drug therapy; Z91.011 Allergy to milk products
CPT/HCPCS: 36415; 62270; 70450; 82947; 85048; 84157; 87070; 87205; 89051 ×2; 96372; 99285; J1885; J2001

== ENCOUNTER 2018-05-03 13:07 | Emergency (ER) | payer MEDICAID ==
[~2018-05-03] VITALS: Ht 180.3 cm; Wt 127.0 kg
[2018-05-03 13:07] VITALS: BP_SYST 142
--- NOTE | 2018-05-03 13:07 | NUR ---
Pt placed in bed 8
--- NOTE | 2018-05-03 13:17 | NUR ---
ER at bedside examining patient.
[2018-05-03] MEDS ORDERED: METOCLOPRAMIDE HCL 10 MG/2 ML VIAL IVP ONE (13:30)
[2018-05-03] MEDS ORDERED: KETOROLAC TROMETHAMINE 30 MG VIAL IVP ONE (13:30)
[2018-05-03] MEDS ORDERED: NACL 0.9% 1,000 ML IV ONE (13:30)
--- NOTE | 2018-05-03 13:35 | NUR ---
ER at bedside examining patient.
--- NOTE | 2018-05-03 13:35 | NUR ---
Patient c/c of neck pain, headache, and nausea. Light, smell, and sound sensitivity noted. Patient states nausea is ongoing, no vomiting. Patient states he is having loose stool and increased frequency from his norm. Notes not foul smelling or watery consistency. Patient was seen on Sunday related to headache and nausea. Patient was sent to CT on Sunday, per patient no acute abnormalities. Patient states headache has been ongoing, but since last night increased pain. Patient was given Toradol during visit on Sunday, relief noted, but after medication wore off, pain has increased. Patient was given prescriptions for tramadol and acyclovir. Patient also sees pain management doctor for chronic pain. Attempted medicating self with baclofen and tylenol 800mg. No relief. Last time patient saw pain management doctor was 05/02/18. Because of the increased headache patient was sent for further exams. MD made aware of situation, will follow up.
--- NOTE | 2018-05-03 13:38 | NUR ---
IV site established, medications given for pain relief. Patient receiving IVF. Will continue to follow up.
[2018-05-03 13:48] LABS: EOSINOPHILS % (AUTO) 0.6 % (0.0-4.0); HEMOGLOBIN 13.2 g/dL (14.0-18.0); LYMPHOCYTES # (AUTO) 1.1 K/uL (1.0-5.5); LYMPHOCYTES % (AUTO) 23.9 % (20.5-51.5); MEAN CORPUSCULAR HEMOGLOBIN 30 pg (27-31); MEAN CORPUSCULAR HGB CONC 32 % (32-36); MEAN CORPUSCULAR VOLUME 93 fL (79.0-98.0); MONOCYTES # (AUTO) 0.4 K/uL (0.0-1.0); MONOCYTES % (AUTO) 8.8 % (1.7-9.3); NEUTROPHILS # (AUTO) 3.2 K/uL (1.8-7.7); NEUTROPHILS % (AUTO) 65.7 % (40.0-70.0); PLATELET COUNT (AUTO) 217 K/uL (130-430); RED BLOOD CELL COUNT(AUTO) 4.39 MIL/uL (4.2-6.2); RED CELL DISTRIBUTION WIDTH 12.4 % (9.0-15.0); WHITE BLOOD COUNT (AUTO) 4.7 K/uL (4.8-10.8)
[2018-05-03 14:13] LABS: CALCIUM 9.1 mg/dL (8.4-11.0); POTASSIUM 3.8 mmol/L (3.5-5.1)
[2018-05-03 14:14] LABS: ALBUMIN 3.5 g/dL (3.4-4.8); CREATININE 1.41 mg/dL (0.55-1.30); TOTAL BILIRUBIN 0.4 mg/dL (0.0-1.0)
--- NOTE | 2018-05-03 14:23 | NUR ---
Patient states he is feeling "like claustrophobic" and clammy. Patient given ice packs to bilateral shoulder/posterior neck area, cool wash cloth applied to forehead. Patient states pain is still at 6/10 upon reassessment. Will continue to follow up and monitor.
[2018-05-03] MEDS ORDERED: LORazepam 2 MG/ML VIAL (FOR ER USE) IVP ONE (15:00)
[2018-05-03] MEDS ORDERED: DIPHENHYDRAMINE INJ 50 MG/ML VIAL IVP ONE (15:00)
[2018-05-03 15:35] VITALS: BP_SYST 134
--- NOTE | 2018-05-03 15:35 | NUR ---
Patient given written and verbal discharge instructions and verbalizes understanding. ER MD discussed with patient the results and treatment provided. Patient in stable condition. ID arm band removed. IV catheter removed intact and dressing applied, no active bleeding. No Rx given. Patient educated on pain management and to follow up with PMD. Pain Scale 3/10. Opportunity for questions provided and answered.
== END 2018-05-03 15:35 | disposition home or self-care (01) ==
LOC: SED 13:07
DX: R51 Headache (principal); M79.672 Pain in left foot; E11.9 Type 2 diabetes mellitus without complications; K21.9 Gastro-esophageal reflux disease without esophagitis; I10 Essential (primary) hypertension; Z90.49 Acquired absence of other specified parts of digestive tract; Z86.73 Personal history of transient ischemic attack (TIA), and cerebral infarction without residual deficits; Z79.899 Other long term (current) drug therapy; Z88.8 Allergy status to other drugs, medicaments and biological substances
CPT/HCPCS: 36415; 80053; 85025; 96374; 96375; 99284; J1200; J1885; J2765; J7030

== ENCOUNTER 2018-12-02 21:45 | Emergency (ER) | payer MEDICAID ==
[~2018-12-02] VITALS: Ht 180.3 cm; Wt 122.0 kg
[2018-12-02 21:50] VITALS: BP_SYST 132
[2018-12-02] MEDS: KETOROLAC TROMETHAMINE 60 MG/2 ML VIAL IM ONE (23:32)
[2018-12-03] MEDS: NACL 0.9% 1,000 ML IV ONE (00:20)
[2018-12-03] MEDS: PROCHLORPERAZINE EDISYLATE 10 MG/2 ML VIAL IVP ONE (00:21)
[2018-12-03] MEDS: DIPHENHYDRAMINE INJ 50 MG/ML VIAL IVP ONE (00:21)
[2018-12-03 00:43] LABS: BASOPHILS % (AUTO) 0.6 % (0.0-2.0); EOSINOPHILS # (AUTO) 0.1 K/uL (0.0-0.4); HEMATOCRIT 38.2 % (36-54); HEMOGLOBIN 12.9 g/dL (14.0-18.0); LYMPHOCYTES # (AUTO) 1.6 K/uL (1.0-5.5); LYMPHOCYTES % (AUTO) 29.9 % (20.5-51.5); MEAN CORPUSCULAR HEMOGLOBIN 33 pg (27-31); MEAN CORPUSCULAR HGB CONC 34 % (32-36); MEAN CORPUSCULAR VOLUME 97 fL (79.0-98.0); MONOCYTES # (AUTO) 0.5 K/uL (0.0-1.0); MONOCYTES % (AUTO) 8.9 % (1.7-9.3); NEUTROPHILS # (AUTO) 3.3 K/uL (1.8-7.7); NEUTROPHILS % (AUTO) 59.6 % (40.0-70.0); PLATELET COUNT (AUTO) 217 K/uL (130-430); RED BLOOD CELL COUNT(AUTO) 3.92 MIL/uL (4.2-6.2); RED CELL DISTRIBUTION WIDTH 14.5 % (9.0-15.0); WHITE BLOOD COUNT (AUTO) 5.5 K/uL (4.8-10.8)
[2018-12-03 00:56] LABS: CALCIUM 8.9 mg/dL (8.4-11.0); CREATININE 1.25 mg/dL (0.55-1.30); POTASSIUM 3.9 mmol/L (3.5-5.1)
[2018-12-03 01:02] LABS: ALBUMIN 3.5 g/dL (3.4-4.8); TOTAL BILIRUBIN 0.3 mg/dL (0.0-1.0)
[2018-12-03 01:38] VITALS: BP_SYST 129
== END 2018-12-03 01:38 | disposition home or self-care (01) ==
LOC: SED 21:45
DX: R51 Headache (principal); I25.2 Old myocardial infarction; E11.9 Type 2 diabetes mellitus without complications; I10 Essential (primary) hypertension; K21.9 Gastro-esophageal reflux disease without esophagitis; Z86.73 Personal history of transient ischemic attack (TIA), and cerebral infarction without residual deficits; Z90.89 Acquired absence of other organs; Z91.011 Allergy to milk products; Z79.82 Long term (current) use of aspirin; Z79.899 Other long term (current) drug therapy
CPT/HCPCS: 36415; 70450; 80053; 85025; 96372; 96374; 96375; 99284; J0780; J1200; J1885; J7030

== ENCOUNTER 2019-06-22 20:16 | Inpatient (IN) | payer MEDICAID ==
[~2019-06-22] VITALS: Ht 180.3 cm; Wt 126.6 kg
[~2019-06-22 20:16] MED LIST changes: -RANI-281 PO; +RANI-673 PO
[2019-06-22 20:24] VITALS: BP_SYST 161
[2019-06-22] MEDS ORDERED: ASPIRIN 81 MG TAB.CHEW PO ONE (21:00)
[2019-06-22 21:21] LABS: BASOPHILS % (AUTO) 0.4 % (0.0-2.0); EOSINOPHILS % (AUTO) 0.6 % (0.0-4.0); HEMATOCRIT 38.9 % (36-54); LYMPHOCYTES # (AUTO) 1.7 K/uL (1.0-5.5); LYMPHOCYTES % (AUTO) 30.4 % (20.5-51.5); MEAN CORPUSCULAR HEMOGLOBIN 33 pg (27-31); MEAN CORPUSCULAR HGB CONC 34 % (32-36); MEAN CORPUSCULAR VOLUME 97 fL (79.0-98.0); MONOCYTES # (AUTO) 0.6 K/uL (0.0-1.0); NEUTROPHILS # (AUTO) 3.4 K/uL (1.8-7.7); NEUTROPHILS % (AUTO) 58.6 % (40.0-70.0); PLATELET COUNT (AUTO) 208 K/uL (130-430); RED BLOOD CELL COUNT(AUTO) 4.01 MIL/uL (4.2-6.2); RED CELL DISTRIBUTION WIDTH 13.4 % (9.0-15.0); WHITE BLOOD COUNT (AUTO) 5.7 K/uL (4.8-10.8)
[2019-06-22 21:35] LABS: PROTHROMBIN TIME 9.9 SECS (9.5-12.5)
[2019-06-22 22:03] LABS: CALCIUM 8.5 mg/dL (8.4-11.0); CREATININE 1.2 mg/dL (0.55-1.30)
[2019-06-22 22:07] LABS: ALBUMIN 3.8 g/dL (3.4-4.8); TOTAL BILIRUBIN 0.3 mg/dL (0.0-1.0)
[2019-06-22] MEDS ORDERED: ONDANSETRON HCL 4 MG/2 ML VIAL IVP ONE (22:15)
[2019-06-22] MEDS ORDERED: NITROGLYCERIN 0.4 MG TAB.SUBL SL ONE (22:15)
[2019-06-22 22:22] LABS: BILIRUBIN,URINE NEGATIVE (NEGATIVE); BLOOD, URINE NEGATIVE (NEGATIVE); CLARITY/URINE CLEAR (CLEAR); GLUCOSE,URINE NEGATIVE (NEGATIVE); KETONES,URINE NEGATIVE (NEGATIVE); LEUKOCYTE ESTERASE ,URINE NEGATIVE (NEGATIVE); NITRITE, URINE NEGATIVE (NEGATIVE); PROTEIN URINE NEGATIVE (NEGATIVE); UROBILINOGEN,URINE 0.2 (0.2-1.0)
[2019-06-22 22:23] LABS: COLOR,URINE STRAW (YELLOW)
[2019-06-22] MEDS ORDERED: GABA800T PO (23:40)
[2019-06-22] MEDS ORDERED: D5W 1,000 ML IV PRN (23:54)
[2019-06-23] MEDS ORDERED: HYDROcodone/ACETAMIN 5-325 MG TAB (NORCO/ VICODIN) PO PRN
[2019-06-23] MEDS ORDERED: ONDANSETRON HCL 4 MG/2 ML VIAL IVP PRN
[2019-06-23] MEDS ORDERED: DEXTROSE 50% JECT 50 ML DISP.SYRIN IVP PRN
[2019-06-23] MEDS ORDERED: ACETAMINOPHEN 325 MG TABLET PO PRN
[2019-06-23] MEDS ORDERED: GLUCOSE 15 GM GEL (in 37.5 GM TUBE) PO PRN
[2019-06-23] MEDS ORDERED: LORazepam 2 MG/ML VIAL IVP PRN
[2019-06-23] MEDS ORDERED: MORPHINE 4 MG/ML INJ. SYRINGE IVP ONE (00:30)
[2019-06-23] MEDS ORDERED: DOXA4TAB2 PO ×2 (04:20→04:22)
[2019-06-23] MEDS ORDERED: APIX5TAB4 PO (04:26)
[2019-06-23] MEDS ORDERED: NORMAL SALINE 5 ML DISP.SYRIN IVF SCH (06:00)
[2019-06-23] MEDS: NORMAL SALINE 5 ML DISP.SYRIN IVF SCH ×3 (06:32→22:16)
[2019-06-23] MEDS: MORPHINE 2 MG/ML INJ. SYRINGE IVP PRN (06:32)
[2019-06-23 08:08] LABS: BASOPHILS % (AUTO) 0.6 % (0.0-2.0); EOSINOPHILS % (AUTO) 0.7 % (0.0-4.0); HEMATOCRIT 40.1 % (36-54); HEMOGLOBIN 13.4 g/dL (14.0-18.0); LYMPHOCYTES # (AUTO) 1.5 K/uL (1.0-5.5); LYMPHOCYTES % (AUTO) 31.5 % (20.5-51.5); MEAN CORPUSCULAR HEMOGLOBIN 33 pg (27-31); MEAN CORPUSCULAR HGB CONC 33 % (32-36); MEAN CORPUSCULAR VOLUME 97 fL (79.0-98.0); MONOCYTES # (AUTO) 0.5 K/uL (0.0-1.0); MONOCYTES % (AUTO) 11.3 % (1.7-9.3); NEUTROPHILS # (AUTO) 2.6 K/uL (1.8-7.7); NEUTROPHILS % (AUTO) 55.9 % (40.0-70.0); PLATELET COUNT (AUTO) 201 K/uL (130-430); RED BLOOD CELL COUNT(AUTO) 4.13 MIL/uL (4.2-6.2); RED CELL DISTRIBUTION WIDTH 13.9 % (9.0-15.0); WHITE BLOOD COUNT (AUTO) 4.6 K/uL (4.8-10.8)
[2019-06-23] MEDS ORDERED: GABAPENTIN 100 MG CAPSULE PO SCH (09:00)
[2019-06-23] MEDS ORDERED: APIXABAN 2.5 MG TABLET PO ONE (10:30)
[2019-06-23] MEDS: MELOXICAM 7.5 MG TABLET PO SCH ×2 (10:55→22:14)
[2019-06-23] MEDS: CHOLECALCIFEROL (VITAMIN D3) 2,000 UNIT TABLET PO SCH ×2 (10:56→22:20)
[2019-06-23] MEDS: ASPIRIN 81 MG TABLET(ECOTRIN) PO SCH (10:56)
[2019-06-23] MEDS: HYDROCHLOROTHIAZIDE 25 MG TABLET (HCTZ) PO SCH (10:57)
[2019-06-23] MEDS: LORATADINE 10 MG TABLET PO SCH (10:57)
[2019-06-23] MEDS: LOSARTAN POTASSIUM 25 MG TABLET PO SCH (10:58)
[2019-06-23] MEDS: ACYCLOVIR 400 MG TABLET PO SCH ×2 (10:59→22:15)
[2019-06-23] MEDS: FAMOTIDINE 20 MG TABLET PO SCH ×2 (10:59→22:13)
[2019-06-23] MEDS: SULFAMETHOXAZOLE/TRIMETHOPR DS 1 TABLET PO SCH ×2 (10:59→22:20)
[2019-06-23] MEDS: DOXAZOSIN MESYLATE 2 MG TABLET PO SCH (10:59)
[2019-06-23] MEDS: GABAPENTIN 400 MG CAPSULE PO SCH (11:00)
[2019-06-23 11:50] VITALS: BP_SYST 142
[2019-06-23] MEDS: traMADol HCL HCL 50 MG TABLET (ULTRAM) PO SCH ×2 (12:51→22:15)
[2019-06-23] MEDS: INSULIN REGULAR, HUMAN 100 UNITS/ML, 10 ML VIAL (humuLIN R) SUBCUT PRN (12:56)
[2019-06-23 19:38] VITALS: BP_SYST 122
[2019-06-23] MEDS: HYDROcodone/ACETAMIN 10-325 MG TAB PO PRN (19:48)
[2019-06-23] MEDS ORDERED: LAMIVUDI PO SCH (21:00)
[2019-06-23] MEDS ORDERED: DOLUTEGRAVIR PO SCH (21:00)
[2019-06-23] MEDS ORDERED: ABACAVIR PO SCH (21:00)
[2019-06-23] MEDS ORDERED: COBICISTAT PO SCH (21:00)
[2019-06-23] MEDS ORDERED: DARUNAVIR PO SCH (21:00)
[2019-06-23] MEDS: APIXABAN 2.5 MG TABLET PO SCH (22:13)
[2019-06-23] MEDS: ATORVASTATIN 10 MG TABLET PO SCH (22:14)
[2019-06-23 23:58] VITALS: BP_SYST 131
[2019-06-24 00:41] LABS: ANION GAP 4 (5-15); CALCIUM 9.2 mg/dL (8.4-11.0); CHLORIDE 98 mmol/L (98-107); CREATININE 1.42 mg/dL (0.55-1.30); GLUCOSE 137 mg/dL (70-99); POTASSIUM 4.3 mmol/L (3.5-5.1); SODIUM SERUM 137 mmol/L (136-145); UREA NITROGEN, BLOOD 18 mg/dL (8-21)
[2019-06-24 00:45] LABS: GFR AFRICAN AMERICAN 66 mL/min (>90)
[2019-06-24] MEDS: NORMAL SALINE 5 ML DISP.SYRIN IVF SCH ×3 (06:09→21:36)
[2019-06-24 07:19] LABS: BASOPHILS % (AUTO) 0.2 % (0.0-2.0); EOSINOPHILS # (AUTO) 0.1 K/uL (0.0-0.4); EOSINOPHILS % (AUTO) 1.7 % (0.0-4.0); HEMATOCRIT 40.2 % (36-54); HEMOGLOBIN 13.7 g/dL (14.0-18.0); LYMPHOCYTES % (AUTO) 38.5 % (20.5-51.5); MEAN CORPUSCULAR HEMOGLOBIN 33 pg (27-31); MEAN CORPUSCULAR HGB CONC 34 % (32-36); MEAN CORPUSCULAR VOLUME 97 fL (79.0-98.0); MONOCYTES # (AUTO) 0.5 K/uL (0.0-1.0); MONOCYTES % (AUTO) 10.5 % (1.7-9.3); NEUTROPHILS # (AUTO) 2.6 K/uL (1.8-7.7); NEUTROPHILS % (AUTO) 49.1 % (40.0-70.0); PLATELET COUNT (AUTO) 203 K/uL (130-430); RED BLOOD CELL COUNT(AUTO) 4.15 MIL/uL (4.2-6.2); RED CELL DISTRIBUTION WIDTH 13.8 % (9.0-15.0); WHITE BLOOD COUNT (AUTO) 5.2 K/uL (4.8-10.8)
[2019-06-24 07:44] VITALS: BP_SYST 111
[2019-06-24] MEDS: traMADol HCL HCL 50 MG TABLET (ULTRAM) PO SCH ×2 (08:18→21:24)
[2019-06-24] MEDS: APIXABAN 2.5 MG TABLET PO SCH ×2 (09:00→21:26)
[2019-06-24] MEDS: FAMOTIDINE 20 MG TABLET PO SCH ×2 (09:00→21:24)
[2019-06-24] MEDS: SULFAMETHOXAZOLE/TRIMETHOPR DS 1 TABLET PO SCH ×2 (09:00→21:23)
[2019-06-24] MEDS: DOXAZOSIN MESYLATE 2 MG TABLET PO SCH (09:00)
[2019-06-24] MEDS: ACYCLOVIR 400 MG TABLET PO SCH ×2 (09:00→21:23)
[2019-06-24] MEDS: HYDROCHLOROTHIAZIDE 25 MG TABLET (HCTZ) PO SCH (09:00)
[2019-06-24] MEDS: GABAPENTIN 400 MG CAPSULE PO SCH (09:00)
[2019-06-24] MEDS: LORATADINE 10 MG TABLET PO SCH (09:00)
[2019-06-24] MEDS: MELOXICAM 7.5 MG TABLET PO SCH ×2 (09:00→21:35)
[2019-06-24] MEDS: CHOLECALCIFEROL (VITAMIN D3) 2,000 UNIT TABLET PO SCH ×2 (09:00→21:23)
[2019-06-24] MEDS: LOSARTAN POTASSIUM 25 MG TABLET PO SCH (09:00)
[2019-06-24] MEDS: ASPIRIN 81 MG TABLET(ECOTRIN) PO SCH (09:00)
[2019-06-24] MEDS ORDERED: REGADENOSON 0.4 MG/5 ML SYRINGE IVP ONE (10:30)
[2019-06-24] MEDS: INSULIN REGULAR, HUMAN 100 UNITS/ML, 10 ML VIAL (humuLIN R) SUBCUT PRN (11:53)
[2019-06-24 18:11] VITALS: BP_SYST 120
[2019-06-24 21:14] VITALS: BP_SYST 114
[2019-06-24] MEDS: ATORVASTATIN 10 MG TABLET PO SCH (21:24)
[2019-06-25 02:14] VITALS: BP_SYST 113
[2019-06-25] MEDS: HYDROcodone/ACETAMIN 10-325 MG TAB PO PRN (02:14)
[2019-06-25] MEDS: NORMAL SALINE 5 ML DISP.SYRIN IVF SCH ×3 (05:55→21:09)
[2019-06-25 07:20] LABS: BASOPHILS % (AUTO) 0.4 % (0.0-2.0); EOSINOPHILS # (AUTO) 0.1 K/uL (0.0-0.4); EOSINOPHILS % (AUTO) 1.2 % (0.0-4.0); HEMATOCRIT 40.3 % (36-54); HEMOGLOBIN 13.7 g/dL (14.0-18.0); LYMPHOCYTES # (AUTO) 2.2 K/uL (1.0-5.5); LYMPHOCYTES % (AUTO) 45.2 % (20.5-51.5); MEAN CORPUSCULAR HEMOGLOBIN 33 pg (27-31); MEAN CORPUSCULAR HGB CONC 34 % (32-36); MEAN CORPUSCULAR VOLUME 97 fL (79.0-98.0); MONOCYTES # (AUTO) 0.6 K/uL (0.0-1.0); MONOCYTES % (AUTO) 11.7 % (1.7-9.3); NEUTROPHILS % (AUTO) 41.5 % (40.0-70.0); PLATELET COUNT (AUTO) 201 K/uL (130-430); RED BLOOD CELL COUNT(AUTO) 4.16 MIL/uL (4.2-6.2); RED CELL DISTRIBUTION WIDTH 13.6 % (9.0-15.0); WHITE BLOOD COUNT (AUTO) 4.9 K/uL (4.8-10.8)
[2019-06-25 07:21] LABS: CALCIUM 8.4 mg/dL (8.4-11.0); CREATININE 1.25 mg/dL (0.55-1.30); POTASSIUM 3.7 mmol/L (3.5-5.1)
[2019-06-25 08:07] VITALS: BP_SYST 120
[2019-06-25] MEDS: CHOLECALCIFEROL (VITAMIN D3) 2,000 UNIT TABLET PO SCH ×2 (09:00→21:06)
[2019-06-25] MEDS: MORPHINE 2 MG/ML INJ. SYRINGE IVP PRN (09:04)
[2019-06-25] MEDS: APIXABAN 2.5 MG TABLET PO SCH ×2 (10:46→21:08)
[2019-06-25] MEDS: GABAPENTIN 400 MG CAPSULE PO SCH (10:47)
[2019-06-25] MEDS: ASPIRIN 81 MG TABLET(ECOTRIN) PO SCH (10:47)
[2019-06-25] MEDS: LORATADINE 10 MG TABLET PO SCH (10:48)
[2019-06-25] MEDS: FAMOTIDINE 20 MG TABLET PO SCH ×2 (10:48→21:05)
[2019-06-25] MEDS: DOXAZOSIN MESYLATE 2 MG TABLET PO SCH (10:48)
[2019-06-25] MEDS: ACYCLOVIR 400 MG TABLET PO SCH ×2 (10:48→21:05)
[2019-06-25] MEDS: HYDROCHLOROTHIAZIDE 25 MG TABLET (HCTZ) PO SCH (10:49)
[2019-06-25] MEDS: LOSARTAN POTASSIUM 25 MG TABLET PO SCH (10:49)
[2019-06-25] MEDS: traMADol HCL HCL 50 MG TABLET (ULTRAM) PO SCH ×2 (10:50→21:05)
[2019-06-25] MEDS: MELOXICAM 7.5 MG TABLET PO SCH ×2 (10:50→21:05)
[2019-06-25] MEDS: SULFAMETHOXAZOLE/TRIMETHOPR DS 1 TABLET PO SCH ×2 (10:50→21:05)
[2019-06-25] MEDS: INSULIN REGULAR, HUMAN 100 UNITS/ML, 10 ML VIAL (humuLIN R) SUBCUT PRN ×2 (12:09→17:35)
[2019-06-25 12:53] VITALS: BP_SYST 134
[2019-06-25 15:20] VITALS: BP_SYST 115
[2019-06-25 20:00] VITALS: BP_SYST 113
[2019-06-25] MEDS: ATORVASTATIN 10 MG TABLET PO SCH (21:06)
[2019-06-26] MEDS: HYDROcodone/ACETAMIN 10-325 MG TAB PO PRN (01:58)
[2019-06-26 02:01] VITALS: BP_SYST 115
[2019-06-26] MEDS: NORMAL SALINE 5 ML DISP.SYRIN IVF SCH (04:49)
[2019-06-26] MEDS: MORPHINE 2 MG/ML INJ. SYRINGE IVP PRN (04:49)
[2019-06-26 07:25] VITALS: BP_SYST 128
[2019-06-26 07:28] LABS: BASOPHILS % (AUTO) 0.3 % (0.0-2.0); CALCIUM 8.3 mg/dL (8.4-11.0); CREATININE 1.25 mg/dL (0.55-1.30); EOSINOPHILS # (AUTO) 0.1 K/uL (0.0-0.4); EOSINOPHILS % (AUTO) 1.1 % (0.0-4.0); HEMATOCRIT 39.5 % (36-54); HEMOGLOBIN 13.5 g/dL (14.0-18.0); LYMPHOCYTES # (AUTO) 2.3 K/uL (1.0-5.5); LYMPHOCYTES % (AUTO) 45.4 % (20.5-51.5); MEAN CORPUSCULAR HEMOGLOBIN 33 pg (27-31); MEAN CORPUSCULAR HGB CONC 34 % (32-36); MEAN CORPUSCULAR VOLUME 96 fL (79.0-98.0); MONOCYTES # (AUTO) 0.5 K/uL (0.0-1.0); MONOCYTES % (AUTO) 9.5 % (1.7-9.3); NEUTROPHILS # (AUTO) 2.3 K/uL (1.8-7.7); NEUTROPHILS % (AUTO) 43.7 % (40.0-70.0); PLATELET COUNT (AUTO) 192 K/uL (130-430); POTASSIUM 3.7 mmol/L (3.5-5.1); RED CELL DISTRIBUTION WIDTH 13.8 % (9.0-15.0); WHITE BLOOD COUNT (AUTO) 5.2 K/uL (4.8-10.8)
[2019-06-26] MEDS: MELOXICAM 7.5 MG TABLET PO SCH (09:43)
[2019-06-26] MEDS: LORATADINE 10 MG TABLET PO SCH (09:43)
[2019-06-26] MEDS: FAMOTIDINE 20 MG TABLET PO SCH (09:43)
[2019-06-26] MEDS: traMADol HCL HCL 50 MG TABLET (ULTRAM) PO SCH (09:43)
[2019-06-26] MEDS: SULFAMETHOXAZOLE/TRIMETHOPR DS 1 TABLET PO SCH (09:44)
[2019-06-26] MEDS: HYDROCHLOROTHIAZIDE 25 MG TABLET (HCTZ) PO SCH (09:44)
[2019-06-26] MEDS: GABAPENTIN 400 MG CAPSULE PO SCH (09:44)
[2019-06-26] MEDS: ACYCLOVIR 400 MG TABLET PO SCH (09:45)
[2019-06-26] MEDS: DOXAZOSIN MESYLATE 2 MG TABLET PO SCH (09:45)
[2019-06-26] MEDS: ASPIRIN 81 MG TABLET(ECOTRIN) PO SCH (09:45)
[2019-06-26] MEDS: LOSARTAN POTASSIUM 25 MG TABLET PO SCH (09:46)
[2019-06-26] MEDS: CHOLECALCIFEROL (VITAMIN D3) 2,000 UNIT TABLET PO SCH (09:46)
[2019-06-26] MEDS: APIXABAN 2.5 MG TABLET PO SCH (09:49)
[2019-06-26 12:00] VITALS: BP_SYST 130
== END 2019-06-26 13:45 | disposition home or self-care (01) | DRG 198 ==
LOC: SED 20:16 → STU 23:45
PROVIDERS: ADMIT Preventive Medicine Preventive Medicine/Occupational Environmental Medicine; ATTEND Preventive Medicine Preventive Medicine/Occupational Environmental Medicine
DX: R07.89 Other chest pain (principal); I25.10 Atherosclerotic heart disease of native coronary artery without angina pectoris; G03.9 Meningitis, unspecified; E11.65 Type 2 diabetes mellitus with hyperglycemia; I11.9 Hypertensive heart disease without heart failure; E83.52 Hypercalcemia; K21.9 Gastro-esophageal reflux disease without esophagitis; E87.1 Hypo-osmolality and hyponatremia; B00.9 Herpesviral infection, unspecified; E66.9 Obesity, unspecified; Z79.899 Other long term (current) drug therapy; I25.2 Old myocardial infarction; Z86.61 Personal history of infections of the central nervous system; Z86.73 Personal history of transient ischemic attack (TIA), and cerebral infarction without residual deficits; Z91.018 Allergy to other foods; Z79.82 Long term (current) use of aspirin; Z68.38 Body mass index [BMI] 38.0-38.9, adult
CPT/HCPCS: 36415; 71045; 80048; 80053; 81003; 82150-TC; 82550-TC; 82962; 83690-TC; 83880; 84484; 85025; 85379; 85610-TC; 93005; 93306; 96374; 96375; 99285; A9500; G0378; J1815; J2270; J2405; J2785

== ENCOUNTER 2019-09-20 12:55 | Inpatient (IN) | payer MEDICAID ==
[~2019-09-20] VITALS: Ht 180.3 cm; Wt 124.7 kg
[~2019-09-20 12:55] MED LIST changes: +DOXA4TAB2 PO; -GABA-529 PO; +GABA800T PO
[2019-09-20 13:12] VITALS: BP_SYST 127
[2019-09-20] MEDS ORDERED: PIPERACILLIN/TAZO 3.38 GM in D5W 50 ML IV ONE (13:30)
[2019-09-20] MEDS ORDERED: ONDANSETRON HCL 4 MG/2 ML VIAL IVP ONE (13:30)
[2019-09-20] MEDS ORDERED: ACETAMINOPHEN 500 MG TABLET PO ONE (13:30)
[2019-09-20] MEDS ORDERED: MORPHINE 2 MG/ML INJ. SYRINGE IVP ONE (13:30)
[2019-09-20 14:09] LABS: BASOPHILS % (AUTO) 0.5 % (0.0-2.0); EOSINOPHILS % (AUTO) 0.2 % (0.0-4.0); HEMATOCRIT 42.5 % (36-54); HEMOGLOBIN 14.1 g/dL (14.0-18.0); LYMPHOCYTES # (AUTO) 0.7 K/uL (1.0-5.5); LYMPHOCYTES % (AUTO) 11.4 % (20.5-51.5); MEAN CORPUSCULAR HEMOGLOBIN 33 pg (27-31); MEAN CORPUSCULAR HGB CONC 33 % (32-36); MEAN CORPUSCULAR VOLUME 98 fL (79.0-98.0); MONOCYTES # (AUTO) 0.5 K/uL (0.0-1.0); MONOCYTES % (AUTO) 8.3 % (1.7-9.3); NEUTROPHILS # (AUTO) 5.1 K/uL (1.8-7.7); NEUTROPHILS % (AUTO) 79.6 % (40.0-70.0); PLATELET COUNT (AUTO) 176 K/uL (130-430); RED BLOOD CELL COUNT(AUTO) 4.35 MIL/uL (4.2-6.2); WHITE BLOOD COUNT (AUTO) 6.5 K/uL (4.8-10.8)
[2019-09-20] MEDS ORDERED: VANCOMYCIN HCL 1,000 MG in NS 250 ML IV ONE (14:15)
[2019-09-20] MEDS ORDERED: NACL 0.9% 2,500 ML IV ONE (14:15)
[2019-09-20] MEDS ORDERED: PIPERACILLIN/TAZOBACTAM 3.375 GM/VIAL (ZOSYN) IV ONE (14:20)
[2019-09-20 14:21] LABS: CALCIUM 8.5 mg/dL (8.4-11.0); CREATININE 1.21 mg/dL (0.55-1.30); POTASSIUM 3.6 mmol/L (3.5-5.1)
[2019-09-20 14:23] LABS: PROTHROMBIN TIME 9.8 SECS (9.5-12.5)
[2019-09-20 14:27] LABS: ALBUMIN 3.8 g/dL (3.4-4.8); TOTAL BILIRUBIN 0.4 mg/dL (0.0-1.0)
[2019-09-20 14:33] LABS: BILIRUBIN,URINE NEGATIVE (NEGATIVE); BLOOD, URINE NEGATIVE (NEGATIVE); CLARITY/URINE CLEAR (CLEAR); COLOR,URINE YELLOW (YELLOW); GLUCOSE,URINE NEGATIVE (NEGATIVE); KETONES,URINE NEGATIVE (NEGATIVE); LEUKOCYTE ESTERASE ,URINE NEGATIVE (NEGATIVE); NITRITE, URINE NEGATIVE (NEGATIVE); PROTEIN URINE TRACE (NEGATIVE); UROBILINOGEN,URINE 0.2 (0.2-1.0)
[2019-09-20 14:45] LABS: BACTERIA,URINE None Seen /HPF (None Seen); MUCUS,URINE None Seen /LPF (None Seen); RBC,URINE 0-3 /HPF (0-3); WBC,URINE NONE SEEN /HPF (0-3)
[2019-09-20 17:06] VITALS: BP_SYST 118
[2019-09-20 17:07] VITALS: BP_SYST 115
[2019-09-20] MEDS ORDERED: ACETAMINOPHEN 325 MG TABLET PO PRN (19:30)
[2019-09-20 20:00] VITALS: BP_SYST 130
[2019-09-20 20:41] LABS: FREE T4 (FREE THYROXINE) 0.9 ng/dl (0.8-1.5); PHOSPHORUS 1.9 mg/dL (2.7-4.5); THYROID STIMULATING HORMONE 0.41 uIu/mL (0.36-3.74)
[2019-09-20] MEDS ORDERED: DOLUTEGRAVIR PO SCH (21:00)
[2019-09-20] MEDS ORDERED: LAMIVUDI PO SCH (21:00)
[2019-09-20] MEDS ORDERED: DARUNAVIR PO SCH (21:00)
[2019-09-20] MEDS ORDERED: COBICISTAT PO SCH (21:00)
[2019-09-20] MEDS ORDERED: ABACAVIR PO SCH (21:00)
[2019-09-20] MEDS ORDERED: VANCOMYCIN HCL 1000 MG/VIAL IV ONE (21:26)
[2019-09-20] MEDS ORDERED: AZITHROMYCIN 500 MG/VIAL (ZITHROMAX) IV ONE (21:27)
[2019-09-20] MEDS: NACL 0.9% 1,000 ML IV SCH (21:34)
[2019-09-20] MEDS: MELOXICAM 7.5 MG TABLET PO SCH (21:45)
[2019-09-20] MEDS: traMADol HCL HCL 50 MG TABLET (ULTRAM) PO SCH (21:46)
[2019-09-20] MEDS: ATORVASTATIN 10 MG TABLET PO SCH (21:46)
[2019-09-20] MEDS: ACYCLOVIR 400 MG TABLET PO SCH (21:46)
[2019-09-20] MEDS: APIXABAN 2.5 MG TABLET PO SCH (21:49)
[2019-09-20] MEDS: AZITHROMYCIN 500 MG in NS 250 ML IV SCH (22:45)
[2019-09-21] VITALS: BP_SYST 125
[2019-09-21] MEDS: PIPERACILLIN/TAZO 3.375/DEX-IS 50 ML IV SCH ×5 (00:15→23:24)
[2019-09-21] MEDS ORDERED: PIPERACILLIN/TAZOBACTAM 3.375 GM/VIAL (ZOSYN) IV ONE (00:21)
[2019-09-21] MEDS: NACL 0.9% 1,000 ML IV SCH ×2 (05:45→11:53)
[2019-09-21 07:27] LABS: CHOLESTEROL 172 mg/dL (<200); HDL CHOLESTEROL 49 mg/dL (>45); LDL CHOLESTEROL 96 mg/dL (<100); TRIGLYCERIDES 105 mg/dL (30-150)
[2019-09-21 08:00] VITALS: BP_SYST 130
[2019-09-21] MEDS: LOSARTAN POTASSIUM 25 MG TABLET PO SCH (08:18)
[2019-09-21] MEDS: HYDROCHLOROTHIAZIDE 25 MG TABLET (HCTZ) PO SCH (08:18)
[2019-09-21] MEDS: CHOLECALCIFEROL (VITAMIN D3) 2,000 UNIT TABLET PO SCH (08:18)
[2019-09-21] MEDS: MELOXICAM 7.5 MG TABLET PO SCH ×2 (08:19→20:51)
[2019-09-21] MEDS: ACYCLOVIR 400 MG TABLET PO SCH ×2 (08:19→20:49)
[2019-09-21] MEDS: traMADol HCL HCL 50 MG TABLET (ULTRAM) PO SCH ×2 (08:19→20:51)
[2019-09-21] MEDS: LORATADINE 10 MG TABLET PO SCH (08:20)
[2019-09-21] MEDS: DOXAZOSIN MESYLATE 2 MG TABLET PO SCH (08:20)
[2019-09-21] MEDS: GABAPENTIN 400 MG CAPSULE PO SCH (08:20)
[2019-09-21] MEDS: APIXABAN 2.5 MG TABLET PO SCH ×2 (08:22→21:00)
[2019-09-21] MEDS: DOCUSATE SODIUM 100 MG CAPSULE PO SCH (08:22)
[2019-09-21] MEDS ORDERED: ASPIRIN 81 MG TABLET(ECOTRIN) PO SCH (09:00)
[2019-09-21] MEDS ORDERED: DEXTROSE 50% JECT 50 ML DISP.SYRIN IVP PRN (10:15)
[2019-09-21] MEDS ORDERED: IPRATROPIUM/ALBUTEROL SULFATE 3 ML AMPUL.NEB (DUONEB) INH PRN (10:15)
[2019-09-21] MEDS: SULFAMETHOXAZOLE/TRIMETHOPR DS 1 TABLET PO SCH ×3 (11:39→23:31)
[2019-09-21 12:47] VITALS: BP_SYST 96
[2019-09-21 13:05] VITALS: BP_SYST 96
[2019-09-21] MEDS: IPRATROPIUM/ALBUTEROL SULFATE 3 ML AMPUL.NEB (DUONEB) INH SCH ×3 (13:50→22:00)
[2019-09-21 16:28] LABS: BILIRUBIN,URINE NEGATIVE (NEGATIVE); CLARITY/URINE CLEAR (CLEAR); COLOR,URINE YELLOW (YELLOW); GLUCOSE,URINE NEGATIVE (NEGATIVE); KETONES,URINE NEGATIVE (NEGATIVE); LEUKOCYTE ESTERASE ,URINE NEGATIVE (NEGATIVE); NITRITE, URINE NEGATIVE (NEGATIVE); PROTEIN URINE NEGATIVE (NEGATIVE); UROBILINOGEN,URINE 0.2 (0.2-1.0)
[2019-09-21 16:29] VITALS: BP_SYST 139
[2019-09-21 16:41] LABS: BARBITURATE, URINE NEGATIVE (NEG <=200); BENZODIAZEPINE, URINE NEGATIVE (NEG <=150); CANNABINOID, URINE NEGATIVE (NEG <=50); COCAINE, URINE NEGATIVE (NEG <=150); METHAMPHETAMINES SCREEN,URINE NEGATIVE (NEG <=500); OPIATE, URINE NEGATIVE (NEG <=100); PHENCYCLIDINE SCREEN,URINE NEGATIVE (NEG <=25); UR TRICYCLIC ANTIDEPRESSANTS NEGATIVE (NEG <=300); URINE AMPHETAMINE NEGATIVE (NEG <=500); URINE METHADONE NEGATIVE (NEG <=200); URINE OXYCODONE SCREEN NEGATIVE (NEG <=100); URINE PROPOXYPHENE SCREEN NEGATIVE (NEG <=300)
[2019-09-21 16:42] LABS: BLOOD, URINE TRACE (NEGATIVE)
[2019-09-21 16:46] LABS: BACTERIA,URINE None Seen /HPF (None Seen); RBC,URINE 0-3 /HPF (0-3); WBC,URINE 0-3 /HPF (0-3)
[2019-09-21] MEDS: TRIUMEQ 600/50/300 PO SCH (17:02)
[2019-09-21] MEDS: PREZCOBIX PO SCH (17:02)
[2019-09-21] MEDS: INSULIN LISPRO SLIDING SCALE 100 UNITS/ML VIAL (humaLOG) SUBCUT PRN (17:07)
[2019-09-21] MEDS ORDERED: GOLYTELY / COLYTE SOLUTION 4 LITERS PO ONE (18:15)
[2019-09-21] MEDS ORDERED: BISACODYL 5 MG TABLET.DR (DULCOLAX) PO ONE (18:15)
[2019-09-21] MEDS: AZITHROMYCIN 500 MG in NS 250 ML IV SCH (18:21)
[2019-09-21] MEDS ORDERED: DEXTROSE 50% JECT 50 ML DISP.SYRIN ONE (19:11)
[2019-09-21 19:20] VITALS: BP_SYST 127
[2019-09-21] MEDS: ONDANSETRON HCL 4 MG/2 ML VIAL IVP PRN (20:43)
[2019-09-21] MEDS: ATORVASTATIN 10 MG TABLET PO SCH (20:51)
[2019-09-22 00:28] VITALS: BP_SYST 135
[2019-09-22] MEDS: NACL 0.9% 1,000 ML IV SCH ×2 (02:54→16:58)
[2019-09-22] MEDS: SULFAMETHOXAZOLE/TRIMETHOPR DS 1 TABLET PO SCH ×4 (06:00→23:39)
[2019-09-22] MEDS: PIPERACILLIN/TAZO 3.375/DEX-IS 50 ML IV SCH (06:33)
[2019-09-22] MEDS: IPRATROPIUM/ALBUTEROL SULFATE 3 ML AMPUL.NEB (DUONEB) INH SCH ×4 (06:54→19:48)
[2019-09-22 07:08] LABS: CALCIUM 8.5 mg/dL (8.4-11.0); CREATININE 0.97 mg/dL (0.55-1.30); POTASSIUM 3.4 mmol/L (3.5-5.1)
[2019-09-22 07:09] LABS: BASOPHILS % (AUTO) 0.2 % (0.0-2.0); EOSINOPHILS % (AUTO) 0.5 % (0.0-4.0); HEMATOCRIT 35.7 % (36-54); HEMOGLOBIN 11.9 g/dL (14.0-18.0); LYMPHOCYTES # (AUTO) 1.4 K/uL (1.0-5.5); LYMPHOCYTES % (AUTO) 32.9 % (20.5-51.5); MEAN CORPUSCULAR HEMOGLOBIN 33 pg (27-31); MEAN CORPUSCULAR HGB CONC 34 % (32-36); MEAN CORPUSCULAR VOLUME 98 fL (79.0-98.0); MONOCYTES # (AUTO) 0.6 K/uL (0.0-1.0); MONOCYTES % (AUTO) 15.2 % (1.7-9.3); NEUTROPHILS # (AUTO) 2.1 K/uL (1.8-7.7); NEUTROPHILS % (AUTO) 51.2 % (40.0-70.0); PLATELET COUNT (AUTO) 163 K/uL (130-430); RED BLOOD CELL COUNT(AUTO) 3.64 MIL/uL (4.2-6.2); RED CELL DISTRIBUTION WIDTH 13.8 % (9.0-15.0); WHITE BLOOD COUNT (AUTO) 4.1 K/uL (4.8-10.8)
[2019-09-22 07:45] VITALS: BP_SYST 115
[2019-09-22] MEDS: DOCUSATE SODIUM 100 MG CAPSULE PO SCH (09:00)
[2019-09-22 10:58] VITALS: BP_SYST 135
[2019-09-22] MEDS ORDERED: MIDAZOLAM HCL 5 MG/5 ML VIAL ONE (11:09)
[2019-09-22] MEDS ORDERED: SIMETHICONE 40 MG/0.6 ML ML ONE (11:09)
[2019-09-22] MEDS: fentaNYL CITRATE/PF 100 MCG/2 ML AMP ONE ×3 (11:31→12:20)
[2019-09-22] MEDS: MIDAZOLAM HCL 5 MG/5 ML VIAL ONE ×3 (11:31→12:19)
[2019-09-22 12:28] VITALS: BP_SYST 134
[2019-09-22] MEDS: ACYCLOVIR 400 MG TABLET PO SCH ×2 (12:36→20:57)
[2019-09-22] MEDS: CHOLECALCIFEROL (VITAMIN D3) 2,000 UNIT TABLET PO SCH (12:36)
[2019-09-22] MEDS: HYDROCHLOROTHIAZIDE 25 MG TABLET (HCTZ) PO SCH (12:37)
[2019-09-22] MEDS: LOSARTAN POTASSIUM 25 MG TABLET PO SCH (12:37)
[2019-09-22] MEDS: LORATADINE 10 MG TABLET PO SCH (12:38)
[2019-09-22] MEDS: GABAPENTIN 400 MG CAPSULE PO SCH (12:38)
[2019-09-22] MEDS: MELOXICAM 7.5 MG TABLET PO SCH ×2 (12:39→20:58)
[2019-09-22] MEDS: DOXAZOSIN MESYLATE 2 MG TABLET PO SCH (12:39)
[2019-09-22] MEDS: traMADol HCL HCL 50 MG TABLET (ULTRAM) PO SCH ×2 (12:41→20:57)
[2019-09-22 16:32] VITALS: BP_SYST 116
[2019-09-22] MEDS: PREZCOBIX PO SCH (17:48)
[2019-09-22] MEDS: TRIUMEQ 600/50/300 PO SCH (17:49)
[2019-09-22] MEDS: AZITHROMYCIN 500 MG in NS 250 ML IV SCH (18:26)
[2019-09-22 19:40] VITALS: BP_SYST 124
[2019-09-22] MEDS: ATORVASTATIN 10 MG TABLET PO SCH (20:58)
[2019-09-22] MEDS: guaiFENesin 200 MG/10 ML UDC PO PRN (22:58)
[2019-09-23] VITALS: BP_SYST 113
[2019-09-23] MEDS: IPRATROPIUM/ALBUTEROL SULFATE 3 ML AMPUL.NEB (DUONEB) INH SCH ×5 (00:11→21:00)
[2019-09-23] MEDS: NACL 0.9% 1,000 ML IV SCH ×2 (00:30→23:50)
[2019-09-23] MEDS: SULFAMETHOXAZOLE/TRIMETHOPR DS 1 TABLET PO SCH ×4 (05:27→23:50)
[2019-09-23] MEDS: guaiFENesin 200 MG/10 ML UDC PO PRN ×2 (05:36→22:13)
[2019-09-23 05:57] LABS: BASOPHILS % (AUTO) 0.3 % (0.0-2.0); EOSINOPHILS # (AUTO) 0.1 K/uL (0.0-0.4); EOSINOPHILS % (AUTO) 1.2 % (0.0-4.0); HEMOGLOBIN 11.7 g/dL (14.0-18.0); LYMPHOCYTES # (AUTO) 1.4 K/uL (1.0-5.5); LYMPHOCYTES % (AUTO) 33.1 % (20.5-51.5); MEAN CORPUSCULAR HEMOGLOBIN 33 pg (27-31); MEAN CORPUSCULAR HGB CONC 34 % (32-36); MEAN CORPUSCULAR VOLUME 98 fL (79.0-98.0); MONOCYTES # (AUTO) 0.5 K/uL (0.0-1.0); MONOCYTES % (AUTO) 10.6 % (1.7-9.3); NEUTROPHILS # (AUTO) 2.4 K/uL (1.8-7.7); NEUTROPHILS % (AUTO) 54.8 % (40.0-70.0); PLATELET COUNT (AUTO) 175 K/uL (130-430); RED BLOOD CELL COUNT(AUTO) 3.57 MIL/uL (4.2-6.2); RED CELL DISTRIBUTION WIDTH 14.1 % (9.0-15.0); WHITE BLOOD COUNT (AUTO) 4.3 K/uL (4.8-10.8)
[2019-09-23 08:00] VITALS: BP_SYST 121
[2019-09-23] MEDS: MELOXICAM 7.5 MG TABLET PO SCH ×2 (09:00→21:48)
[2019-09-23] MEDS: CHOLECALCIFEROL (VITAMIN D3) 2,000 UNIT TABLET PO SCH (09:00)
[2019-09-23] MEDS: DOXAZOSIN MESYLATE 2 MG TABLET PO SCH (09:00)
[2019-09-23] MEDS: ACYCLOVIR 400 MG TABLET PO SCH ×2 (09:00→21:49)
[2019-09-23] MEDS: LOSARTAN POTASSIUM 25 MG TABLET PO SCH (09:00)
[2019-09-23] MEDS: LORATADINE 10 MG TABLET PO SCH (09:00)
[2019-09-23] MEDS: GABAPENTIN 400 MG CAPSULE PO SCH (09:00)
[2019-09-23] MEDS: DOCUSATE SODIUM 100 MG CAPSULE PO SCH (09:00)
[2019-09-23] MEDS: HYDROCHLOROTHIAZIDE 25 MG TABLET (HCTZ) PO SCH (09:00)
[2019-09-23] MEDS: traMADol HCL HCL 50 MG TABLET (ULTRAM) PO SCH ×2 (09:00→21:50)
[2019-09-23] MEDS ORDERED: OSELTAMIVIR PHOSPHATE 75 MG CAPSULE PO ONE (11:15)
[2019-09-23 11:19] LABS: CALCIUM 8.4 mg/dL (8.4-11.0); CREATININE 1.05 mg/dL (0.55-1.30); POTASSIUM 2.9 mmol/L (3.5-5.1)
[2019-09-23] MEDS ORDERED: POTASSIUM CHLORIDE 20 MEQ/PKT PACKET PO ONE (18:15)
[2019-09-23] MEDS: TRIUMEQ 600/50/300 PO SCH (19:12)
[2019-09-23] MEDS: PREZCOBIX PO SCH (19:12)
[2019-09-23 20:00] VITALS: BP_SYST 130
[2019-09-23] MEDS: OSELTAMIVIR PHOSPHATE 75 MG CAPSULE PO SCH (21:48)
[2019-09-23] MEDS: AZITHROMYCIN 500 MG in NS 250 ML IV SCH (21:48)
[2019-09-23] MEDS: ATORVASTATIN 10 MG TABLET PO SCH (21:48)
[2019-09-23] MEDS: HYDROcodone/ACETAMIN 5-325 MG TAB (NORCO/ VICODIN) PO PRN (21:50)
[2019-09-23] MEDS: ONDANSETRON HCL 4 MG/2 ML VIAL IVP PRN (23:55)
[2019-09-24 00:38] VITALS: BP_SYST 124
[2019-09-24] MEDS: NACL 0.9% 1,000 ML IV SCH ×2 (05:06→17:05)
[2019-09-24] MEDS: SULFAMETHOXAZOLE/TRIMETHOPR DS 1 TABLET PO SCH ×3 (06:08→17:08)
[2019-09-24] MEDS: HYDROcodone/ACETAMIN 5-325 MG TAB (NORCO/ VICODIN) PO PRN (06:15)
[2019-09-24 06:48] LABS: BASOPHILS % (AUTO) 0.4 % (0.0-2.0); EOSINOPHILS # (AUTO) 0.1 K/uL (0.0-0.4); EOSINOPHILS % (AUTO) 2.3 % (0.0-4.0); HEMATOCRIT 33.8 % (36-54); HEMOGLOBIN 11.2 g/dL (14.0-18.0); LYMPHOCYTES # (AUTO) 1.1 K/uL (1.0-5.5); LYMPHOCYTES % (AUTO) 36.9 % (20.5-51.5); MEAN CORPUSCULAR HEMOGLOBIN 33 pg (27-31); MEAN CORPUSCULAR HGB CONC 33 % (32-36); MEAN CORPUSCULAR VOLUME 98 fL (79.0-98.0); MONOCYTES # (AUTO) 0.3 K/uL (0.0-1.0); MONOCYTES % (AUTO) 9.3 % (1.7-9.3); NEUTROPHILS # (AUTO) 1.6 K/uL (1.8-7.7); NEUTROPHILS % (AUTO) 51.1 % (40.0-70.0); PLATELET COUNT (AUTO) 174 K/uL (130-430); RED BLOOD CELL COUNT(AUTO) 3.45 MIL/uL (4.2-6.2); RED CELL DISTRIBUTION WIDTH 13.6 % (9.0-15.0); WHITE BLOOD COUNT (AUTO) 3.1 K/uL (4.8-10.8)
[2019-09-24 07:08] LABS: CALCIUM 8.7 mg/dL (8.4-11.0); CREATININE 1.19 mg/dL (0.55-1.30); POTASSIUM 3.3 mmol/L (3.5-5.1)
[2019-09-24] MEDS: IPRATROPIUM/ALBUTEROL SULFATE 3 ML AMPUL.NEB (DUONEB) INH SCH ×4 (07:24→20:59)
[2019-09-24] MEDS: DOCUSATE SODIUM 100 MG CAPSULE PO SCH (09:00)
[2019-09-24] MEDS ORDERED: POTASSIUM CHLORIDE 20 MEQ/PKT PACKET PO ONE (09:00)
[2019-09-24 09:02] VITALS: BP_SYST 115
[2019-09-24 09:27] VITALS: BP_SYST 115
[2019-09-24] MEDS: CHOLECALCIFEROL (VITAMIN D3) 2,000 UNIT TABLET PO SCH (09:37)
[2019-09-24] MEDS: MELOXICAM 7.5 MG TABLET PO SCH ×2 (09:41→21:10)
[2019-09-24] MEDS: traMADol HCL HCL 50 MG TABLET (ULTRAM) PO SCH ×2 (09:43→21:10)
[2019-09-24] MEDS: LOSARTAN POTASSIUM 25 MG TABLET PO SCH (09:43)
[2019-09-24] MEDS: HYDROCHLOROTHIAZIDE 25 MG TABLET (HCTZ) PO SCH (09:43)
[2019-09-24] MEDS: ACYCLOVIR 400 MG TABLET PO SCH ×2 (09:45→21:09)
[2019-09-24] MEDS: OSELTAMIVIR PHOSPHATE 75 MG CAPSULE PO SCH ×2 (09:45→21:09)
[2019-09-24] MEDS: GABAPENTIN 400 MG CAPSULE PO SCH (09:45)
[2019-09-24] MEDS: DOXAZOSIN MESYLATE 2 MG TABLET PO SCH (09:45)
[2019-09-24] MEDS: LORATADINE 10 MG TABLET PO SCH (09:45)
[2019-09-24] MEDS ORDERED: guaiFENesin ER 600 MG TAB PO ONE (10:00)
[2019-09-24] MEDS ORDERED: POTASSIUM CHLORIDE 20 MEQ TAB.PRT.SR PO ONE (10:00)
[2019-09-24] MEDS: VANCOMYCIN HCL 1,000 MG in NS 250 ML IV SCH (14:10)
[2019-09-24] MEDS: PREZCOBIX PO SCH (17:09)
[2019-09-24] MEDS: TRIUMEQ 600/50/300 PO SCH (17:09)
[2019-09-24 17:15] VITALS: BP_SYST 107
[2019-09-24 20:00] VITALS: BP_SYST 121
[2019-09-24] MEDS: guaiFENesin ER 600 MG TAB PO SCH (21:08)
[2019-09-24] MEDS: ATORVASTATIN 10 MG TABLET PO SCH (21:10)
[2019-09-24] MEDS: APIXABAN 2.5 MG TABLET PO SCH (21:12)
[2019-09-25] VITALS: BP_SYST 108
[2019-09-25] MEDS: SULFAMETHOXAZOLE/TRIMETHOPR DS 1 TABLET PO SCH ×4 (00:46→17:21)
[2019-09-25] MEDS: VANCOMYCIN HCL 1,000 MG in NS 250 ML IV SCH ×2 (00:50→12:35)
[2019-09-25] MEDS: NACL 0.9% 1,000 ML IV SCH ×3 (05:47→22:06)
[2019-09-25 06:19] LABS: CALCIUM 8.7 mg/dL (8.4-11.0); CHLORIDE 105 mmol/L (98-107); CREATININE 1.35 mg/dL (0.55-1.30); GLUCOSE 85 mg/dL (70-99); POTASSIUM 3.8 mmol/L (3.5-5.1); UREA NITROGEN, BLOOD 6 mg/dL (8-21)
[2019-09-25 06:27] LABS: SODIUM SERUM 136 mmol/L (136-145)
[2019-09-25 06:42] LABS: BASOPHILS % (AUTO) 0.6 % (0.0-2.0); EOSINOPHILS # (AUTO) 0.1 K/uL (0.0-0.4); EOSINOPHILS % (AUTO) 2.9 % (0.0-4.0); HEMATOCRIT 34.7 % (36-54); HEMOGLOBIN 11.6 g/dL (14.0-18.0); LYMPHOCYTES # (AUTO) 1.4 K/uL (1.0-5.5); LYMPHOCYTES % (AUTO) 34.8 % (20.5-51.5); MEAN CORPUSCULAR HEMOGLOBIN 33 pg (27-31); MEAN CORPUSCULAR HGB CONC 33 % (32-36); MEAN CORPUSCULAR VOLUME 99 fL (79.0-98.0); MONOCYTES # (AUTO) 0.4 K/uL (0.0-1.0); MONOCYTES % (AUTO) 10.1 % (1.7-9.3); NEUTROPHILS # (AUTO) 2.1 K/uL (1.8-7.7); NEUTROPHILS % (AUTO) 51.6 % (40.0-70.0); PLATELET COUNT (AUTO) 196 K/uL (130-430); RED BLOOD CELL COUNT(AUTO) 3.52 MIL/uL (4.2-6.2); RED CELL DISTRIBUTION WIDTH 13.7 % (9.0-15.0)
[2019-09-25 06:43] LABS: ANION GAP < 3 (5-15); GFR AFRICAN AMERICAN 70 mL/min (>90)
[2019-09-25] MEDS: IPRATROPIUM/ALBUTEROL SULFATE 3 ML AMPUL.NEB (DUONEB) INH SCH ×5 (07:02→23:14)
[2019-09-25 08:00] VITALS: BP_SYST 133
[2019-09-25] MEDS: DOCUSATE SODIUM 100 MG CAPSULE PO SCH (09:30)
[2019-09-25] MEDS: HYDROCHLOROTHIAZIDE 25 MG TABLET (HCTZ) PO SCH (09:31)
[2019-09-25] MEDS: traMADol HCL HCL 50 MG TABLET (ULTRAM) PO SCH ×2 (09:31→21:57)
[2019-09-25] MEDS: ACYCLOVIR 400 MG TABLET PO SCH ×2 (09:31→21:56)
[2019-09-25] MEDS: guaiFENesin ER 600 MG TAB PO SCH ×2 (09:31→21:47)
[2019-09-25] MEDS: OSELTAMIVIR PHOSPHATE 75 MG CAPSULE PO SCH ×2 (09:32→21:47)
[2019-09-25] MEDS: GABAPENTIN 400 MG CAPSULE PO SCH (09:32)
[2019-09-25] MEDS: LOSARTAN POTASSIUM 25 MG TABLET PO SCH (09:33)
[2019-09-25] MEDS: DOXAZOSIN MESYLATE 2 MG TABLET PO SCH (09:33)
[2019-09-25] MEDS: CHOLECALCIFEROL (VITAMIN D3) 2,000 UNIT TABLET PO SCH (09:34)
[2019-09-25] MEDS: LORATADINE 10 MG TABLET PO SCH (09:34)
[2019-09-25] MEDS: MELOXICAM 7.5 MG TABLET PO SCH (09:34)
[2019-09-25] MEDS: APIXABAN 2.5 MG TABLET PO SCH ×2 (09:38→22:01)
[2019-09-25 12:00] VITALS: BP_SYST 111
[2019-09-25 16:00] VITALS: BP_SYST 129
[2019-09-25] MEDS ORDERED: PSEUDOEPHEDRINE HCL 30 MG TABLET PO PRN (16:30)
[2019-09-25] MEDS ORDERED: guaiFENesin/DEXTROMETHORPHAN 10 ML UDC PO PRN (16:30)
[2019-09-25] MEDS: PREZCOBIX PO SCH (17:22)
[2019-09-25] MEDS: TRIUMEQ 600/50/300 PO SCH (17:23)
[2019-09-25] MEDS: ONDANSETRON HCL 4 MG/2 ML VIAL IVP PRN (17:33)
[2019-09-25 20:00] VITALS: BP_SYST 125
[2019-09-25] MEDS: VANCOMYCIN HCL 1.25 GM/NS 250 ML IV SCH (21:47)
[2019-09-25] MEDS: ATORVASTATIN 10 MG TABLET PO SCH (21:57)
[2019-09-25] MEDS: INSULIN LISPRO SLIDING SCALE 100 UNITS/ML VIAL (humaLOG) SUBCUT PRN (22:04)
[2019-09-26] MEDS: SULFAMETHOXAZOLE/TRIMETHOPR DS 1 TABLET PO SCH ×2 (01:07→05:37)
[2019-09-26 05:47] LABS: CALCIUM 8.8 mg/dL (8.4-11.0); CHLORIDE 105 mmol/L (98-107); CREATININE 1.38 mg/dL (0.55-1.30); GLUCOSE 82 mg/dL (70-99); POTASSIUM 4.1 mmol/L (3.5-5.1); SODIUM SERUM 134 mmol/L (136-145); UREA NITROGEN, BLOOD 5 mg/dL (8-21)
[2019-09-26 06:30] LABS: BASOPHILS % (AUTO) 0.6 % (0.0-2.0); EOSINOPHILS # (AUTO) 0.1 K/uL (0.0-0.4); EOSINOPHILS % (AUTO) 3.2 % (0.0-4.0); HEMATOCRIT 35.3 % (36-54); HEMOGLOBIN 11.8 g/dL (14.0-18.0); LYMPHOCYTES # (AUTO) 1.5 K/uL (1.0-5.5); MEAN CORPUSCULAR HEMOGLOBIN 33 pg (27-31); MEAN CORPUSCULAR HGB CONC 34 % (32-36); MEAN CORPUSCULAR VOLUME 98 fL (79.0-98.0); MONOCYTES # (AUTO) 0.5 K/uL (0.0-1.0); MONOCYTES % (AUTO) 11.1 % (1.7-9.3); NEUTROPHILS # (AUTO) 2.4 K/uL (1.8-7.7); NEUTROPHILS % (AUTO) 52.1 % (40.0-70.0); PLATELET COUNT (AUTO) 214 K/uL (130-430); RED BLOOD CELL COUNT(AUTO) 3.59 MIL/uL (4.2-6.2); RED CELL DISTRIBUTION WIDTH 13.7 % (9.0-15.0); WHITE BLOOD COUNT (AUTO) 4.5 K/uL (4.8-10.8)
[2019-09-26 06:48] LABS: GFR AFRICAN AMERICAN 69 mL/min (>90)
[2019-09-26 06:52] LABS: ANION GAP < 3 (5-15)
[2019-09-26 08:00] VITALS: BP_SYST 114
[2019-09-26] MEDS: VANCOMYCIN HCL 1.25 GM/NS 250 ML IV SCH (08:44)
[2019-09-26] MEDS: ONDANSETRON HCL 4 MG/2 ML VIAL IVP PRN (08:46)
[2019-09-26] MEDS: GABAPENTIN 400 MG CAPSULE PO SCH (08:47)
[2019-09-26] MEDS: CHOLECALCIFEROL (VITAMIN D3) 2,000 UNIT TABLET PO SCH (08:48)
[2019-09-26] MEDS: ACYCLOVIR 400 MG TABLET PO SCH (08:48)
[2019-09-26] MEDS: OSELTAMIVIR PHOSPHATE 75 MG CAPSULE PO SCH (08:49)
[2019-09-26] MEDS: HYDROCHLOROTHIAZIDE 25 MG TABLET (HCTZ) PO SCH (08:49)
[2019-09-26] MEDS: traMADol HCL HCL 50 MG TABLET (ULTRAM) PO SCH (08:49)
[2019-09-26] MEDS: guaiFENesin ER 600 MG TAB PO SCH (08:49)
[2019-09-26] MEDS: DOXAZOSIN MESYLATE 2 MG TABLET PO SCH (08:50)
[2019-09-26] MEDS: LORATADINE 10 MG TABLET PO SCH (08:50)
[2019-09-26] MEDS: APIXABAN 2.5 MG TABLET PO SCH (08:52)
[2019-09-26] MEDS: DOCUSATE SODIUM 100 MG CAPSULE PO SCH (08:52)
[2019-09-26] MEDS: LOSARTAN POTASSIUM 25 MG TABLET PO SCH (09:00)
[2019-09-26] MEDS: IPRATROPIUM/ALBUTEROL SULFATE 3 ML AMPUL.NEB (DUONEB) INH SCH ×3 (09:00→15:19)
[2019-09-26] MEDS ORDERED: LOPERAMIDE HCL 2 MG CAPSULE PO ONE (10:00)
[2019-09-26] MEDS ORDERED: SULFAMETHOXAZOLE/TRIMETHOPR DS 1 TABLET PO SCH (10:00)
[2019-09-26] MEDS ORDERED: DOXY100T2 PO (10:48)
[2019-09-26] MEDS ORDERED: OSEL75CA PO (10:48)
[2019-09-26] MEDS ORDERED: BENZ-16 PO (10:49)
[2019-09-26 11:10] VITALS: BP_SYST 131
[2019-09-26 12:00] VITALS: BP_SYST 131
[2019-09-26] MEDS: NACL 0.9% 1,000 ML IV SCH (15:21)
== END 2019-09-26 15:35 | disposition home or self-care (01) | DRG 892 ==
LOC: SED 12:55 → STU 15:57 → SMU 09-21 11:26
PROVIDERS: ADMIT Family Medicine; ATTEND Family Medicine
PROC: 0DBM8ZZ Excision of Descending Colon, Via Natural or Artificial Opening Endoscopic (ICD-10-PCS; principal; 2019-09-22 14:30)
DX: B20 Human immunodeficiency virus [HIV] disease (principal); A41.9 Sepsis, unspecified organism; J15.9 Unspecified bacterial pneumonia; E83.39 Other disorders of phosphorus metabolism; B19.10 Unspecified viral hepatitis B without hepatic coma; E11.9 Type 2 diabetes mellitus without complications; E66.9 Obesity, unspecified; E73.9 Lactose intolerance, unspecified; B97.7 Papillomavirus as the cause of diseases classified elsewhere; E78.5 Hyperlipidemia, unspecified; I10 Essential (primary) hypertension; K63.5 Polyp of colon; I25.10 Atherosclerotic heart disease of native coronary artery without angina pectoris; I25.2 Old myocardial infarction; Z83.3 Family history of diabetes mellitus; Z86.711 Personal history of pulmonary embolism; Z86.73 Personal history of transient ischemic attack (TIA), and cerebral infarction without residual deficits; Z87.891 Personal history of nicotine dependence; Z91.018 Allergy to other foods; Z79.82 Long term (current) use of aspirin; Z79.899 Other long term (current) drug therapy; Z79.01 Long term (current) use of anticoagulants; Z90.49 Acquired absence of other specified parts of digestive tract; Z98.49 Cataract extraction status, unspecified eye; Z68.38 Body mass index [BMI] 38.0-38.9, adult
CPT/HCPCS: 36415; 45384; 71045; 80048; 80053; 80061; 80202-TC; 80307; 81000-TC; 82272; 82962; 83036; 83051; 83605; 83690-TC; 83735-TC; 83880; 84100-TC; 84439; 84443-TC; 84484; 85025; 85610-TC; 85730-TC; 86710; 87040-TC; 87045-TC; 87046; 87086; 87177; 87186-TC; 87230-TC; 87425; 88305; 93005; 94640; 94760; 96374; 96375; 99285; G0378; G9035; J0456; J0696; J2250; J2270; J2405; J2543; J3010; J3370; J7030; J7050; J7060

== ENCOUNTER 2020-03-01 18:35 | Emergency (ER) | payer MEDICAID ==
[~2020-03-01] VITALS: Ht 180.3 cm; Wt 121.6 kg
[~2020-03-01 18:35] MED LIST changes: +BENZ-16 PO; +DOXY100T2 PO; -MELO-89 PO; +OSEL75CA PO
[2020-03-01 18:41] VITALS: BP_SYST 148
--- NOTE | 2020-03-01 18:51 | NUR ---
Patient to ER bed 03 to gown for evaluation. Side rails up.
[2020-03-01 19:10] LABS: BASOPHILS % (AUTO) 0.4 % (0.0-2.0); EOSINOPHILS % (AUTO) 0.2 % (0.0-4.0); HEMATOCRIT 42.2 % (36-54); HEMOGLOBIN 13.9 g/dL (14.0-18.0); LYMPHOCYTES # (AUTO) 1.1 K/uL (1.0-5.5); LYMPHOCYTES % (AUTO) 19.9 % (20.5-51.5); MEAN CORPUSCULAR HEMOGLOBIN 33 pg (27-31); MEAN CORPUSCULAR HGB CONC 33 % (32-36); MEAN CORPUSCULAR VOLUME 99 fL (79.0-98.0); MONOCYTES # (AUTO) 0.6 K/uL (0.0-1.0); MONOCYTES % (AUTO) 10.9 % (1.7-9.3); NEUTROPHILS # (AUTO) 3.8 K/uL (1.8-7.7); NEUTROPHILS % (AUTO) 68.6 % (40.0-70.0); PLATELET COUNT (AUTO) 177 K/uL (130-430); RED BLOOD CELL COUNT(AUTO) 4.26 MIL/uL (4.2-6.2); RED CELL DISTRIBUTION WIDTH 14.7 % (9.0-15.0); WHITE BLOOD COUNT (AUTO) 5.6 K/uL (4.8-10.8)
[2020-03-01 19:25] LABS: CREATININE 1.2 mg/dL (0.55-1.30); POTASSIUM 3.7 mmol/L (3.5-5.1)
[2020-03-01 19:32] LABS: ALBUMIN 3.3 g/dL (3.4-4.8); TOTAL BILIRUBIN 0.5 mg/dL (0.0-1.0)
--- NOTE | 2020-03-01 19:47 | NUR ---
pt a&o x4 c/o of swelling to bilateral extremities with +1 edema, burning sensation on bottom of feet, tingling on left side of body that started yesterday morning. Pt reports having lost of taste for about a week. Pt denies cough, sob, pain. Pt hx of diabetes, hypertension, two strokes, two heart attacks. Pt does not have trouble forming or speaking clear sentences, pt does not appear to have facial droop.
--- NOTE | 2020-03-01 20:00 | NUR ---
ER Dr. rodriguez at bedside examining patient.
--- NOTE | 2020-03-01 20:30 | NUR ---
lab at bedside drawing second troponin.
[2020-03-01 21:30] VITALS: BP_SYST 145
--- NOTE | 2020-03-01 21:30 | NUR ---
Patient given written and verbal discharge instructions and verbalizes understanding. ER MD discussed with patient the results and treatment provided. Patient in stable condition. ID arm band removed. Rx of diflucan and benadryl given. Patient educated on pain management and to follow up with PMD. Pain Scale 0/10. Opportunity for questions provided and answered. Medication side effect fact sheet provided.
== END 2020-03-01 21:30 | disposition home or self-care (01) ==
LOC: SED 18:35
DX: I89.0 Lymphedema, not elsewhere classified (principal); B35.0 Tinea barbae and tinea capitis; I10 Essential (primary) hypertension; E11.9 Type 2 diabetes mellitus without complications; K21.9 Gastro-esophageal reflux disease without esophagitis; Z79.82 Long term (current) use of aspirin; Z79.899 Other long term (current) drug therapy
CPT/HCPCS: 36415; 71045; 80053; 82550-TC; 82962; 83880; 84484; 85025; 93005; 99285

== ENCOUNTER 2020-03-10 20:48 | Emergency (ER) | payer MEDICAID ==
[~2020-03-10] VITALS: Ht 180.3 cm; Wt 120.2 kg
[2020-03-10 20:59] VITALS: BP_SYST 138
[2020-03-10 22:31] LABS: BASOPHILS % (AUTO) 0.9 % (0.0-2.0); EOSINOPHILS # (AUTO) 0.1 K/uL (0.0-0.4); HEMATOCRIT 39.4 % (36-54); HEMOGLOBIN 13.2 g/dL (14.0-18.0); LYMPHOCYTES # (AUTO) 1.1 K/uL (1.0-5.5); LYMPHOCYTES % (AUTO) 22.8 % (20.5-51.5); MEAN CORPUSCULAR HEMOGLOBIN 34 pg (27-31); MEAN CORPUSCULAR HGB CONC 34 % (32-36); MEAN CORPUSCULAR VOLUME 100 fL (79.0-98.0); MONOCYTES # (AUTO) 0.5 K/uL (0.0-1.0); MONOCYTES % (AUTO) 9.4 % (1.7-9.3); NEUTROPHILS # (AUTO) 3.3 K/uL (1.8-7.7); NEUTROPHILS % (AUTO) 65.9 % (40.0-70.0); PLATELET COUNT (AUTO) 160 K/uL (130-430); RED BLOOD CELL COUNT(AUTO) 3.93 MIL/uL (4.2-6.2); RED CELL DISTRIBUTION WIDTH 15.4 % (9.0-15.0)
[2020-03-10 22:48] LABS: CALCIUM 9.1 mg/dL (8.4-11.0); CREATININE 1.09 mg/dL (0.55-1.30); POTASSIUM 4.2 mmol/L (3.5-5.1)
[2020-03-10 22:53] LABS: ALBUMIN 3.3 g/dL (3.4-4.8); INR 0.9 (0.80-1.20); PROTHROMBIN TIME 9.4 SECS (9.5-12.5); TOTAL BILIRUBIN 0.4 mg/dL (0.0-1.0)
[2020-03-11 03:13] LABS: BILIRUBIN,URINE NEGATIVE (NEGATIVE); BLOOD, URINE NEGATIVE (NEGATIVE); CLARITY/URINE CLEAR (CLEAR); COLOR,URINE YELLOW (YELLOW); GLUCOSE,URINE NEGATIVE (NEGATIVE); KETONES,URINE NEGATIVE (NEGATIVE); LEUKOCYTE ESTERASE ,URINE NEGATIVE (NEGATIVE); NITRITE, URINE NEGATIVE (NEGATIVE); PROTEIN URINE NEGATIVE (NEGATIVE); UROBILINOGEN,URINE 0.2 (0.2-1.0)
[2020-03-11 03:49] VITALS: BP_SYST 144
== END 2020-03-11 03:49 | disposition home or self-care (01) ==
LOC: SED 20:48
DX: R60.0 Localized edema (principal); I10 Essential (primary) hypertension; E11.9 Type 2 diabetes mellitus without complications; Z79.899 Other long term (current) drug therapy; Z87.891 Personal history of nicotine dependence
CPT/HCPCS: 36415; 80053; 81003; 83880; 84484; 85025; 85379; 85610-TC; 85730-TC; 93005; 93970; 99285

== ENCOUNTER 2021-01-21 11:07 | Emergency (ER) | payer MEDICAID ==
[~2021-01-21] VITALS: Ht 162.6 cm; Wt 95.3 kg
[~2021-01-21 11:07] MED LIST changes: -ACYC400T PO; +ACYC400T19 PO; -ASPI-1153 PO; +ASPI-1393 PO
[2021-01-21 11:22] VITALS: BP_SYST 155
[2021-01-21] MEDS ORDERED: MAG HYDROX/AL HYDROX/SIMETH 30 ML, DICYCLOMINE HCL 20 MG, LIDOCAINE VISCOUS 2% 15ML (PO... PO ONE ×3 (12:00)
[2021-01-21] MEDS ORDERED: NACL 0.9% 1,000 ML IV ONE (12:00)
[2021-01-21] MEDS ORDERED: ONDANSETRON HCL 4 MG/2 ML VIAL IVP ONE (12:00)
[2021-01-21 12:11] LABS: BASOPHILS % (AUTO) 0.6 % (0.0-2.0); EOSINOPHILS % (AUTO) 0.6 % (0.0-4.0); HEMATOCRIT 38.6 % (36-54); HEMOGLOBIN 13.2 g/dL (14.0-18.0); LYMPHOCYTES # (AUTO) 1.2 K/uL (1.0-5.5); LYMPHOCYTES % (AUTO) 16.5 % (20.5-51.5); MEAN CORPUSCULAR HEMOGLOBIN 32 pg (27-31); MEAN CORPUSCULAR HGB CONC 34 % (32-36); MEAN CORPUSCULAR VOLUME 94 fL (79.0-98.0); MONOCYTES # (AUTO) 0.8 K/uL (0.0-1.0); MONOCYTES % (AUTO) 11.4 % (1.7-9.3); NEUTROPHILS # (AUTO) 5.1 K/uL (1.8-7.7); NEUTROPHILS % (AUTO) 70.9 % (40.0-70.0); PLATELET COUNT (AUTO) 166 K/uL (130-430); RED BLOOD CELL COUNT(AUTO) 4.11 MIL/uL (4.2-6.2); RED CELL DISTRIBUTION WIDTH 13.8 % (9.0-15.0); WHITE BLOOD COUNT (AUTO) 7.3 K/uL (4.8-10.8)
[2021-01-21 12:28] LABS: ALBUMIN 3.3 g/dL (3.4-4.8); CALCIUM 9.3 mg/dL (8.4-11.0); CREATININE 1.24 mg/dL (0.55-1.30); POTASSIUM 4.1 mmol/L (3.5-5.1); TOTAL BILIRUBIN 0.7 mg/dL (0.0-1.0)
[2021-01-21 13:55] LABS: BILIRUBIN,URINE NEGATIVE (NEGATIVE); BLOOD, URINE NEGATIVE (NEGATIVE); CLARITY/URINE CLEAR (CLEAR); COLOR,URINE YELLOW (YELLOW); GLUCOSE,URINE NEGATIVE (NEGATIVE); KETONES,URINE NEGATIVE (NEGATIVE); LEUKOCYTE ESTERASE ,URINE NEGATIVE (NEGATIVE); NITRITE, URINE NEGATIVE (NEGATIVE); PH,URINE 5.5 (5.0-8.0); PROTEIN URINE NEGATIVE (NEGATIVE); UROBILINOGEN,URINE 0.2 (0.2-1.0)
[2021-01-21] MEDS ORDERED: MORPHINE 4 MG INJ. 4 MG/ML VIAL IVP ONE ×2 (14:00→14:30)
[2021-01-21] MEDS ORDERED: OXYC-128 PO (15:25)
[2021-01-21] MEDS ORDERED: OXYCODONE/ACETAMINOPHEN 5-325 TABLET PO ONE (15:30)
[2021-01-21 16:23] VITALS: BP_SYST 128
== END 2021-01-21 16:24 | disposition home or self-care (01) ==
LOC: SED 11:07
DX: K29.50 Unspecified chronic gastritis without bleeding (principal); K30 Functional dyspepsia; I10 Essential (primary) hypertension; E11.9 Type 2 diabetes mellitus without complications; I25.2 Old myocardial infarction; Z79.899 Other long term (current) drug therapy; Z79.84 Long term (current) use of oral hypoglycemic drugs
CPT/HCPCS: 36415; 74021; 80053; 81003; 83690; 85025; 93005; 96361; 96374; 96375; 96376; 99285; J2001; J2270; J2405; J7030

== ENCOUNTER 2021-01-23 13:04 | Inpatient (IN) | payer MEDICAID, SELFPAY ==
[~2021-01-23] VITALS: Ht 180.3 cm; Wt 120.2 kg
[~2021-01-23 13:04] MED LIST changes: +OXYC-128 PO
--- NOTE | 2021-01-23 13:05 | NUR ---
Placed in room 03 . Placed on vehicle monitor technician, blood pressure machine and pulse oximeter. To gown for exam. Side rails up.
[2021-01-23 13:14] VITALS: BP_SYST 134
--- NOTE | 2021-01-23 13:17 | NUR ---
Dr Chapa evaluating patient at bedside
--- NOTE | 2021-01-23 13:20 | NUR ---
Patient came into the ER with complaint of upper gastric and chest pain. Patient describes pain as heavy on chest and radiates towards the head. Reported to MD. Patient rated pain 10/10. Patient also complains of N/V.
[2021-01-23] MEDS ORDERED: ONDANSETRON HCL 4 MG/2 ML VIAL IVP ONE ×2 (13:30→15:45)
[2021-01-23 13:35] LABS: BASOPHILS % (AUTO) 0.6 % (0.0-2.0); EOSINOPHILS % (AUTO) 0.2 % (0.0-4.0); HEMATOCRIT 40.6 % (36-54); LYMPHOCYTES # (AUTO) 1.8 K/uL (1.0-5.5); LYMPHOCYTES % (AUTO) 23.9 % (20.5-51.5); MEAN CORPUSCULAR HEMOGLOBIN 32 pg (27-31); MEAN CORPUSCULAR HGB CONC 34 % (32-36); MEAN CORPUSCULAR VOLUME 93 fL (79.0-98.0); MONOCYTES # (AUTO) 0.7 K/uL (0.0-1.0); MONOCYTES % (AUTO) 10.1 % (1.7-9.3); NEUTROPHILS # (AUTO) 4.8 K/uL (1.8-7.7); NEUTROPHILS % (AUTO) 65.2 % (40.0-70.0); PLATELET COUNT (AUTO) 106 K/uL (130-430); RED BLOOD CELL COUNT(AUTO) 4.35 MIL/uL (4.2-6.2); WHITE BLOOD COUNT (AUTO) 7.3 K/uL (4.8-10.8)
[2021-01-23 13:48] LABS: CALCIUM 8.5 mg/dL (8.4-11.0); CREATININE 1.11 mg/dL (0.55-1.30); POTASSIUM 3.9 mmol/L (3.5-5.1)
[2021-01-23 13:51] LABS: PROTHROMBIN TIME 9.8 SECS (9.5-12.5)
[2021-01-23 14:03] LABS: ALBUMIN 3.4 g/dL (3.4-4.8); C-REACTIVE PROTEIN QUANT 7.3 mg/dL (0-0.5); TOTAL BILIRUBIN 0.8 mg/dL (0.0-1.0)
--- NOTE | 2021-01-23 14:30 | NUR ---
Patient resting quietly. No acute distress noted. Vital signs within normal range.
[2021-01-23] MEDS ORDERED: MORPHINE 4 MG INJ. 4 MG/ML VIAL IVP ONE (15:45)
[2021-01-23] MEDS ORDERED: ENOXAPARIN SODIUM 100 MG/ML SYRINGE SUBCUT ONE (15:45)
[2021-01-23] MEDS ORDERED: NITROGLYCERIN 1 INCH (GM) OINT. TP ONE (15:45)
[2021-01-23 15:54] LABS: BLOOD, URINE NEGATIVE (NEGATIVE); CLARITY/URINE CLEAR (CLEAR); COLOR,URINE YELLOW (YELLOW); GLUCOSE,URINE NEGATIVE (NEGATIVE); KETONES,URINE 3+ (NEGATIVE); LEUKOCYTE ESTERASE ,URINE NEGATIVE (NEGATIVE); NITRITE, URINE NEGATIVE (NEGATIVE); PROTEIN URINE NEGATIVE (NEGATIVE)
[2021-01-23 16:02] LABS: BILIRUBIN,URINE NEGATIVE (NEGATIVE)
[2021-01-23] MEDS ORDERED: VALA10002 PO (16:50)
[2021-01-23] MEDS ORDERED: ATEN-41 PO (16:53)
[2021-01-23] MEDS ORDERED: LOSA50TA3 PO (16:54)
--- NOTE | 2021-01-23 17:40 | NUR ---
CONSULTATION PAGED REASON FOR CONSULT: CHEST PAIN WAS CONSULT CALLED?Y PERSON WHO WAS NOTIFIED:SHAYLEE CONSULTING PHYSICIAN:YVES KEATING FURNITURE MOVER SPECIALTY:CARDIO FURNITURE MOVER PHONE NUMBER:[phone] REQUESTING PHYSICIAN:
[2021-01-23] MEDS ORDERED: GLU850 PO (17:50)
[2021-01-23] MEDS ORDERED: ATOR10TA68 PO (17:50)
[2021-01-23] MEDS ORDERED: LORA10TA7 PO (17:50)
--- NOTE | 2021-01-23 17:50 | NUR ---
Patient will be admitted to care of Dr. Blanchard. Admitted to Tele unit. Will go to room 110B. Belongings list completed. Complete and up to date summary report printed. SBAR report to be given at bedside with opportunity for questions.
--- NOTE | 2021-01-23 17:54 | NUR ---
ADMISSION NOTE Received patient from ER via gurney. Patient admitted with diagnosis of STOMACH PROBLEM. Patient is awake, alert, oriented X 4. Patient oriented to hospital room, call light, toileting, pain management and safety-teach back done. Personal belongings checked and Belongings List documented. Call light within reach.
[2021-01-23 17:56] VITALS: BP_SYST 134
--- NOTE | 2021-01-23 18:35 | NUR ---
CLOSING NOTE PATIENT IS RESTING IN BED. ON ROOM AIR AND TOLERATING WELL WITH NO SIGNS OF SHORTNESS OF BREATH NOTED. IV IS PATENT, SALINE LOCKED. PATIENT COMPLAINING OF NAUSEA. BED LOCKED AND IN LOWEST POSITION. CALL LIGHT WITHIN REACH. WILL ENDORSE TO NIGHT NURSE.
[2021-01-23 21:33] VITALS: BP_SYST 142
[2021-01-23] MEDS ORDERED: MORPHINE 2 MG/ML INJ. SYRINGE IVP PRN (21:45)
--- NOTE | 2021-01-23 21:46 | NUR ---
HIGH ALERT NOTE: Called Dr. Blanchard back at identified within the medical roster to verify physician authenticity.
[2021-01-23] MEDS: ONDANSETRON HCL 4 MG/2 ML VIAL IVP PRN (22:13)
[2021-01-23] MEDS: valACYclovir HCL 500 MG TABLET PO SCH (22:15)
[2021-01-23] MEDS: MORPHINE 2 MG/ML INJ. SYRINGE IVP PRN (22:16)
--- NOTE | 2021-01-23 22:16 | NUR ---
PAIN MGT PATIENT MEDICATED WITH MORPHINE 2 MG FOR C/O RUQ ABDOMINAL PAIN AND ZOFRAN FOR C/O NAUSEA. VITAL SIGNS STABLE.
[2021-01-23] MEDS: ASPIRIN 81 MG TABLET(ECOTRIN) PO SCH (22:36)
[2021-01-23] MEDS: SULFAMETHOXAZOLE/TRIMETHOPR DS 1 TABLET PO SCH (22:36)
[2021-01-23] MEDS: ATENOLOL 25 MG TABLET(TENORMIN) PO SCH (22:36)
--- NOTE | 2021-01-24 00:15 | NUR ---
ROUNDS PATIENT RESTING IN BED. BREATHING UNLABORED ON ROOM AIR. NO DISTRESS NOTED. CALL LIGHT WITH IN REACH.
[2021-01-24 03:24] VITALS: BP_SYST 146
[2021-01-24] MEDS: MORPHINE 2 MG/ML INJ. SYRINGE IVP PRN ×2 (03:29→13:17)
--- NOTE | 2021-01-24 03:29 | NUR ---
PAIN MGT PATIENT MEDICATED WITH MORPHINE FOR C/O VITO ABDOMINAL PAIN. VITAL SIGNS STABLE.
--- NOTE | 2021-01-24 06:17 | NUR ---
CLOSING NOTES NO CHANGE IN PATIENT CONDITION. PATIENT NEEDS ATTENDED. BED IN LOWEST LOCKED POSITION. CALL LIGHT WITH IN REACH.
--- NOTE | 2021-01-24 07:31 | NUR ---
Nutrition Update Eric Scale 18 noted. Pt admitted for chest pain Diet: 2gm Na BMI: 37 kg/m2 RD to follow per nutrition care standards.
--- NOTE | 2021-01-24 07:34 | NUR ---
OPENING NOTE PATIENT IS RESTING IN BED. ON ROOM AIR AND TOLERATING WELL WITH NO SIGNS OF SHORTNESS OF BREATH NOTED. IV IS PATENT, SALINE LOCKED. BED LOCKED AND IN LOWEST POSITION. CALL LIGHT WITHIN REACH. SAFETY PRECAUTIONS IN PLACE. WILL CONTINUE TO MONITOR.
[2021-01-24 08:00] VITALS: BP_SYST 148
[2021-01-24] MEDS: valACYclovir HCL 500 MG TABLET PO SCH (08:16)
[2021-01-24] MEDS: SULFAMETHOXAZOLE/TRIMETHOPR DS 1 TABLET PO SCH ×2 (08:16→20:33)
[2021-01-24] MEDS: LOSARTAN POTASSIUM 50 MG TABLET (COZAAR) PO SCH (08:17)
[2021-01-24] MEDS: LORATADINE 10 MG TABLET PO SCH (08:17)
[2021-01-24] MEDS: ASPIRIN 81 MG TABLET(ECOTRIN) PO SCH (08:17)
[2021-01-24] MEDS: PANTOPRAZOLE SODIUM 40 MG/VIAL (PROTONIX) IVP SCH (08:17)
[2021-01-24] MEDS: ATENOLOL 25 MG TABLET(TENORMIN) PO SCH (08:18)
[2021-01-24] MEDS ORDERED: APIXABAN 2.5 MG TABLET PO ONE (09:00)
[2021-01-24] MEDS ORDERED: APIXABAN 2.5 MG TABLET PO SCH (09:00)
[2021-01-24] MEDS: ONDANSETRON HCL 4 MG/2 ML VIAL IVP PRN (09:04)
--- NOTE | 2021-01-24 09:12 | NUR ---
Zofran Patient complaining of nausea and vomiting. Given Zofran IVP PRN as ordered. Patient tolerated well. Will monitor.
[2021-01-24 11:42] VITALS: BP_SYST 144
[2021-01-24] MEDS ORDERED: OXYCODONE/ACETAMINOPHEN 5-325 TABLET PO PRN (13:15)
[2021-01-24] MEDS ORDERED: OSELTAMIVIR PHOSPHATE 75 MG CAPSULE PO ONE (13:30)
[2021-01-24] MEDS ORDERED: traMADol HCL HCL 50 MG TABLET (ULTRAM) PO ONE (13:30)
[2021-01-24] MEDS ORDERED: DOXYCYCLINE HYCLATE 100 MG CAPSULE PO ONE (13:30)
[2021-01-24] MEDS ORDERED: BENZONATATE 100 MG CAPSULE (TESSALON) PO ONE (13:30)
--- NOTE | 2021-01-24 13:42 | NUR ---
CONSULTATION PAGED REASON FOR CONSULTATION:NAUSEA, DIARRHEA WAS CONSULT CALED?Y PERSON WHO WAS NOTIFIED:TARUN CONSULTING PHYSICIAN:CHARU SEWELL MOLDER CLOSED MOLDS SPECIALTY:GASTROENTEOLOGY MOLDER CLOSED MOLDS PHONE NUMBER:[phone] REQUESTING PHYSICIAN:YUE MARTINS
[2021-01-24] MEDS ORDERED: ACYCLOVIR 400 MG TABLET PO ONE (13:45)
[2021-01-24] MEDS ORDERED: HYDROCHLOROTHIAZIDE 25 MG TABLET (HCTZ) PO ONE (13:45)
[2021-01-24] MEDS ORDERED: GABAPENTIN 400 MG CAPSULE PO ONE (13:45)
--- NOTE | 2021-01-24 13:49 | NUR ---
CONSULTATION PAGED REASON FOR CONSULTATION:HIV WAS CONSULT CALED?Y PERSON WHO WAS NOTIFIED:KARYN CONSULTING PHYSICIAN:MARYANN PRITCHARD [employer] READING TEACHER SPECIALTY:INFECTIOUS DISEASE ELEMENTARY SCHOOL READING TEACHER PHONE NUMBER:[phone] REQUESTING PHYSICIAN:YUE MARTINS
[2021-01-24 15:49] VITALS: BP_SYST 128
[2021-01-24] MEDS: COBICISTAT PO SCH (17:22)
[2021-01-24] MEDS: DARUNAVIR PO SCH (17:22)
[2021-01-24] MEDS: LAMIVUDINE PO SCH (17:22)
[2021-01-24] MEDS: DOLUTEGRAVIR PO SCH (17:22)
[2021-01-24] MEDS: ABACAVIR PO SCH (17:22)
--- NOTE | 2021-01-24 18:36 | NUR ---
CLOSING NOTE PATIENT SITTING UP IN BED. ON ROOM AIR AND TOLERATING WELL WITH NO SIGNS OF SHORTNESS OF BREATH NOTED. IV IS PATENT, SALINE LOCKED. BED LOCKED AND IN LOWEST POSITION. CALL LIGHT WITHIN REACH. SAFETY PRECAUTIONS IN PLACE. WILL ENDORSE TO NIGHT NURSE.
--- NOTE | 2021-01-24 19:30 | NUR ---
OPENING NOTE RECEIVED REPORT FROM DAY SHIFT RN. PATIENT IS ALERT, AWAKE, AND ORIENTED X 4. PATIENT IS RESTING IN HIS BED. NO SIGNS OF ACUTE DISTRESS NOTED. PATIENT IS BREATHING EASY, UNLABORED TO ROOM AIR. NO SIGNS OF RESPIRATORY DISTRESS NOTED. IV INTACT AND SALINE LOCKED. CALL LIGHT WITHIN REACH. BED IS LOCKED AND PLACED AT THE LOWEST POSITION. WILL CONTINUE TO MONITOR.
[2021-01-24 20:00] VITALS: BP_SYST 148
[2021-01-24] MEDS: APIXABAN 2.5 MG TABLET PO SCH (20:32)
[2021-01-24] MEDS: traMADol HCL HCL 50 MG TABLET (ULTRAM) PO SCH (20:32)
[2021-01-24] MEDS: ACYCLOVIR 400 MG TABLET PO SCH (20:33)
[2021-01-24] MEDS: ATORVASTATIN 10 MG TABLET PO SCH (20:33)
[2021-01-24] MEDS: OSELTAMIVIR PHOSPHATE 75 MG CAPSULE PO SCH (20:33)
[2021-01-24] MEDS: DOXAZOSIN MESYLATE 2 MG TABLET PO SCH (20:34)
[2021-01-24] MEDS: BENZONATATE 100 MG CAPSULE (TESSALON) PO SCH (20:35)
[2021-01-25] VITALS: BP_SYST 118
[2021-01-25] MEDS: ONDANSETRON HCL 4 MG/2 ML VIAL IVP PRN ×3 (01:48→21:07)
[2021-01-25 06:37] LABS: BASOPHILS % (AUTO) 0.6 % (0.0-2.0); EOSINOPHILS % (AUTO) 0.9 % (0.0-4.0); HEMATOCRIT 38.5 % (36-54); LYMPHOCYTES # (AUTO) 1.2 K/uL (1.0-5.5); LYMPHOCYTES % (AUTO) 27.3 % (20.5-51.5); MEAN CORPUSCULAR HEMOGLOBIN 32 pg (27-31); MEAN CORPUSCULAR HGB CONC 34 % (32-36); MEAN CORPUSCULAR VOLUME 94 fL (79.0-98.0); MONOCYTES # (AUTO) 0.6 K/uL (0.0-1.0); MONOCYTES % (AUTO) 13.8 % (1.7-9.3); NEUTROPHILS # (AUTO) 2.6 K/uL (1.8-7.7); NEUTROPHILS % (AUTO) 57.4 % (40.0-70.0); PLATELET COUNT (AUTO) 99 K/uL (130-430); RED BLOOD CELL COUNT(AUTO) 4.12 MIL/uL (4.2-6.2); RED CELL DISTRIBUTION WIDTH 13.8 % (9.0-15.0); WHITE BLOOD COUNT (AUTO) 4.5 K/uL (4.8-10.8)
--- NOTE | 2021-01-25 06:43 | NUR ---
CLOSING NOTE PATIENT IS RESTING IN HIS BED. PATIENT IS BREATHING EASY, UNLABORED TO ROOM AIR. NO SIGNS OF RESPIRATORY DISTRESS NOTED. IV INTACT AND SALINE LOCKED. NO SIGNS OF INFILTRATION NOTED. CALL LIGHT WITHIN REACH. BED IS LOCKED AND PLACED AT THE LOWEST POSITION. SAFETY PRECAUTIONS IN PLACED. ALL NEEDS ARE MET THROUGHOUT SHIFT. WILL CONTINUE TO MONITOR UNTIL ENDORSE TO DAY SHIFT RN.
[2021-01-25 07:15] LABS: ALBUMIN 3.1 g/dL (3.4-4.8); CALCIUM 8.8 mg/dL (8.4-11.0); CREATININE 1.15 mg/dL (0.55-1.30); POTASSIUM 3.6 mmol/L (3.5-5.1); TOTAL BILIRUBIN 0.6 mg/dL (0.0-1.0)
[2021-01-25 07:28] LABS: PROTHROMBIN TIME 10.3 SECS (9.5-12.5)
[2021-01-25 08:00] VITALS: BP_SYST 107
[2021-01-25] MEDS ORDERED: DIATR MEGLU/DIATRIZ SOD 30 ML SOLUTION PO ONE (08:18)
[2021-01-25] MEDS ORDERED: DOXYCYCLINE HYCLATE 100 MG CAPSULE PO SCH (09:00)
[2021-01-25] MEDS ORDERED: VALSARTAN 80 MG TABLET (DIOVAN) PO SCH (09:00)
--- NOTE | 2021-01-25 09:18 | NUR ---
MORNING MEDS HELD MORNING MEDS HELD UNTIL AFTER CT SCAN OF ABDOMEN. WILL MONITOR.
--- NOTE | 2021-01-25 10:50 | NUR ---
CT SCAN Patient taken to CT for scan of abdomen. In stable condition. Will wait for return to unit.
[2021-01-25] MEDS: ATENOLOL 25 MG TABLET(TENORMIN) PO SCH (11:10)
[2021-01-25] MEDS: GABAPENTIN 400 MG CAPSULE PO SCH (11:10)
[2021-01-25] MEDS: HYDROCHLOROTHIAZIDE 25 MG TABLET (HCTZ) PO SCH (11:11)
[2021-01-25] MEDS: BENZONATATE 100 MG CAPSULE (TESSALON) PO SCH ×2 (11:11→21:06)
[2021-01-25] MEDS: ACYCLOVIR 400 MG TABLET PO SCH (11:11)
[2021-01-25] MEDS: ASPIRIN 81 MG TABLET(ECOTRIN) PO SCH (11:11)
[2021-01-25] MEDS: APIXABAN 2.5 MG TABLET PO SCH ×2 (11:12→21:06)
[2021-01-25] MEDS: DOXAZOSIN MESYLATE 2 MG TABLET PO SCH ×2 (11:12→21:06)
[2021-01-25] MEDS: valACYclovir HCL 500 MG TABLET PO SCH (11:14)
[2021-01-25] MEDS: SULFAMETHOXAZOLE/TRIMETHOPR DS 1 TABLET PO SCH (11:22)
[2021-01-25] MEDS: LORATADINE 10 MG TABLET PO SCH (11:22)
[2021-01-25] MEDS: traMADol HCL HCL 50 MG TABLET (ULTRAM) PO SCH ×2 (11:23→21:09)
[2021-01-25] MEDS: PANTOPRAZOLE SODIUM 40 MG/VIAL (PROTONIX) IVP SCH (11:23)
[2021-01-25] MEDS: OSELTAMIVIR PHOSPHATE 75 MG CAPSULE PO SCH (11:23)
[2021-01-25] MEDS: LOSARTAN POTASSIUM 50 MG TABLET (COZAAR) PO SCH (11:23)
[2021-01-25 12:22] VITALS: BP_SYST 123
[2021-01-25] MEDS: LEVOFLOXACIN IN DEXTROSE 5 % 100 ML IV SCH (13:07)
[2021-01-25] MEDS: metroNIDAZOLE 500 mg/NS 100 ML IV SCH ×2 (13:07→21:07)
[2021-01-25] MEDS: D5/0.45 NS 1,000 ML IV SCH (15:16)
[2021-01-25 16:55] VITALS: BP_SYST 126
[2021-01-25] MEDS: DOLUTEGRAVIR PO SCH (16:59)
[2021-01-25] MEDS: DARUNAVIR PO SCH (16:59)
[2021-01-25] MEDS: LAMIVUDINE PO SCH (16:59)
[2021-01-25] MEDS: ABACAVIR PO SCH (16:59)
[2021-01-25] MEDS: COBICISTAT PO SCH (16:59)
--- NOTE | 2021-01-25 18:41 | NUR ---
CLOSING NOTE PATIENT SITTING UP IN BED. ON ROOM AIR AND TOLERATING WELL WITH NO SIGNS OF SHORTNESS OF BREATH NOTED. IV IS PATENT, INFUSING FLUIDS ORDERED. BED LOCKED AND IN LOWEST POSITION. CALL LIGHT WITHIN REACH. SAFETY PRECAUTIONS IN PLACE. WILL ENDORSE TO NIGHT NURSE.
--- NOTE | 2021-01-25 19:30 | NUR ---
OPENING NOTE RECEIVED REPORT FROM DAY SHIFT RN. PATIENT IS ALERT, AWAKE, AND ORIENTED X 4. PATIENT IS RESTING IN HIS BED. NO SIGNS OF ACUTE DISTRESS NOTED. PATIENT IS BREATHING EASY, UNLABORED TO ROOM AIR. NO SIGNS OF RESPIRATORY DISTRESS NOTED. IV INTACT AND RUNNING FLUID ORDERED RATE. NO SIGNS OF INFILTRATION NOTED. CALL LIGHT WITHIN REACH. BED IS LOCKED AND PLACED AT THE LOWEST POSITION. SAFETY PRECAUTIONS IN PLACED. WILL CONTINUE TO MONITOR.
[2021-01-25 20:00] VITALS: BP_SYST 138
[2021-01-25] MEDS: ATORVASTATIN 10 MG TABLET PO SCH (21:06)
[2021-01-26 01:07] VITALS: BP_SYST 99
[2021-01-26] MEDS: metroNIDAZOLE 500 mg/NS 100 ML IV SCH ×3 (05:48→21:34)
[2021-01-26] MEDS: D5/0.45 NS 1,000 ML IV SCH (05:48)
--- NOTE | 2021-01-26 06:55 | NUR ---
CLOSING NOTE PATIENT IS RESTING IN HIS BED. PATIENT IS BREATHING EASY, UNLABORED TO ROOM AIR. NO SIGNS OF RESPIRATORY DISTRESS NOTED. IV INTACT AND RUNNING FLUID ORDERED RATE. NO SIGNS OF INFILTRATION NOTED. CALL LIGHT WITHIN REACH. BED IS LOCKED AND PLACED AT THE LOWEST POSITION. SAFETY PRECAUTIONS IN PLACED. ALL NEEDS ARE MET THROUGHOUT SHIFT. WILL CONTINUE TO MONITOR UNTIL ENDORSE TO DAY SHIFT RN.
--- NOTE | 2021-01-26 07:43 | NUR ---
RN OPENING NOTE REPORT WAS ENDORSED BY NIGHT NURSE. PATIENT IS AWAKE AND ALERT, SITTING UP IN BED. PATIENT IS CURRENTLY HAVING BLOOD WORK DRAWN. VITAL SIGNS ARE STABLE. NO SIGNS OF ANY DISTRESS, BREATHING IS EQUAL AND NON LABORED. PATIENT IS ON TELEMONITOR. EDUCATED BODY WORKER LIGHT FOR ASSISTANCE. CALL LIGHT IS WITH PATIENT. NO OTHER NEEDS AT THIS TIME.
[2021-01-26 07:45] LABS: BASOPHILS % (AUTO) 0.7 % (0.0-2.0); EOSINOPHILS % (AUTO) 0.6 % (0.0-4.0); HEMATOCRIT 40.6 % (36-54); LYMPHOCYTES # (AUTO) 1.7 K/uL (1.0-5.5); LYMPHOCYTES % (AUTO) 31.2 % (20.5-51.5); MEAN CORPUSCULAR HEMOGLOBIN 32 pg (27-31); MEAN CORPUSCULAR HGB CONC 35 % (32-36); MEAN CORPUSCULAR VOLUME 92 fL (79.0-98.0); MONOCYTES # (AUTO) 0.7 K/uL (0.0-1.0); MONOCYTES % (AUTO) 12.6 % (1.7-9.3); NEUTROPHILS # (AUTO) 2.9 K/uL (1.8-7.7); NEUTROPHILS % (AUTO) 54.9 % (40.0-70.0); PLATELET COUNT (AUTO) 114 K/uL (130-430); RED BLOOD CELL COUNT(AUTO) 4.39 MIL/uL (4.2-6.2); RED CELL DISTRIBUTION WIDTH 14.1 % (9.0-15.0); WHITE BLOOD COUNT (AUTO) 5.4 K/uL (4.8-10.8)
[2021-01-26 07:46] VITALS: BP_SYST 136
[2021-01-26 07:57] LABS: CALCIUM 8.9 mg/dL (8.4-11.0); CREATININE 1.34 mg/dL (0.55-1.30); POTASSIUM 3.6 mmol/L (3.5-5.1)
[2021-01-26] MEDS: BENZONATATE 100 MG CAPSULE (TESSALON) PO SCH ×2 (09:00→21:31)
[2021-01-26] MEDS: PANTOPRAZOLE SODIUM 40 MG/VIAL (PROTONIX) IVP SCH (09:19)
[2021-01-26] MEDS: ASPIRIN 81 MG TABLET(ECOTRIN) PO SCH (09:20)
[2021-01-26] MEDS: LORATADINE 10 MG TABLET PO SCH (09:20)
[2021-01-26] MEDS: LOSARTAN POTASSIUM 50 MG TABLET (COZAAR) PO SCH (09:20)
[2021-01-26] MEDS: DOXAZOSIN MESYLATE 2 MG TABLET PO SCH ×2 (09:21→21:42)
[2021-01-26] MEDS: GABAPENTIN 400 MG CAPSULE PO SCH (09:21)
[2021-01-26] MEDS: traMADol HCL HCL 50 MG TABLET (ULTRAM) PO SCH ×2 (09:22→21:34)
[2021-01-26] MEDS: ATENOLOL 25 MG TABLET(TENORMIN) PO SCH (09:23)
[2021-01-26] MEDS: APIXABAN 2.5 MG TABLET PO SCH ×2 (09:24→21:36)
[2021-01-26] MEDS: valACYclovir HCL 500 MG TABLET PO SCH (09:29)
[2021-01-26] MEDS: HYDROCHLOROTHIAZIDE 25 MG TABLET (HCTZ) PO SCH (09:29)
[2021-01-26] MEDS: SULFAMETHOXAZOLE/TRIMETHOPR DS 1 TABLET PO SCH (09:40)
--- NOTE | 2021-01-26 09:46 | NUR ---
MEDICATION PATIENT SCHEDULED MEDICATION GIVEN PER ORDER. PATIENT IS AWAKE AND ALERT. NO SIGNS OF ANY DISTRESS. PATENT EDUCATED BYPRODUCTS SUPERVISOR LIGHT, CALL LIGHT WITH PATIENT. PATIENT HAS NO OTHER NEEDS AT THIS TIME.
[2021-01-26 12:00] VITALS: BP_SYST 100
[2021-01-26] MEDS: LEVOFLOXACIN IN DEXTROSE 5 % 100 ML IV SCH (13:44)
--- NOTE | 2021-01-26 13:49 | NUR ---
MEDICATION PATIENT IS AWAKE AND ALERT,SITTING IN BED. ATE HIS LUNCH AND TOLERATED WELL. PATIENT'S SCHEDULED MEDICATION GIVEN PER ORDER. PATIENT EDUCATED ON CANDICE LIGHT FOR ASSISTANCE. CALL LIGHT IS WITH PATIENT. PATIENT HAS NO OTHER NEEDS AT THIS TIME. PATIENT STILL HAS NO BOWEL MOVEMENT TO COLLECT.
--- NOTE | 2021-01-26 15:14 | NUR ---
MEDICATION PATIENTS SCHEDULED MEDICATION GIVEN PER ORDER. PATIENT IS AWAKE AND ALERT LAYING IN BED. PATIENT HAS NO COMPLAINTS AT THIS TIME. PATIENT STILL HAS NO BOWEL MOVEMENT. PATIENT EDUCATED PLASTIC PRESS MOLDER LIGHT FOR ASSISTANCE. NO OTHER NEEDS AT THIS TIME.
[2021-01-26 16:00] VITALS: BP_SYST 127
[2021-01-26] MEDS: DOLUTEGRAVIR PO SCH (17:44)
[2021-01-26] MEDS: DARUNAVIR PO SCH (17:44)
[2021-01-26] MEDS: LAMIVUDINE PO SCH (17:44)
[2021-01-26] MEDS: COBICISTAT PO SCH (17:44)
[2021-01-26] MEDS: ABACAVIR PO SCH (17:44)
--- NOTE | 2021-01-26 18:27 | NUR ---
RN closing note/ new iv site patient is awake and alert scheduled medication was given per order. patient's iv appears to be looking, and patient cant bend his arm and requesting a new IV. New IV site obtained to left FA 22G good blood return, flushing well without pain. Old IV site to right AC removed catheter intact placed gauze and tape to insertion site. patient is sitting up in bed, eating dinner. Ambulated to bathroom and back to bed gait is steady. patient educated to use call light, call light is with him.patient has no complaints at this time. patient shows no signs of any distress,breathing is equal and non labored.
[2021-01-26 20:00] VITALS: BP_SYST 127
[2021-01-26] MEDS: ATORVASTATIN 10 MG TABLET PO SCH (21:31)
--- NOTE | 2021-01-26 21:46 | NUR ---
TRANSFER OF CARE SBAR RECEIVED FROM MAJOR STALLWORTH. WILL CONTINUE WITH CARE.
--- NOTE | 2021-01-26 22:00 | NUR ---
INITIAL NOTES PATIENT AMBULATING TO THE RESTROOM, STEADY GAIT. NO COMPLAINTS OF PAIN AT THIS TIME. CALL LIGHT WITHIN REACH, BED ALARM OFF PER PATIENT REQUEST, PATIENT DEMONSTRATES PROPER USAGE OF CALL LIGHT. FALL, ASPIRATION, ISOLATION, AND SAFETY PRECAUTIONS IN PLACE. WILL CONTINUE TO MONITOR. RECEIVED REPORT TO CONTINUE TO HOLD METFORMIN UNTIL AFTER 01/27/21 PATIENT HAD HAD CAT SCAN.
[2021-01-27 01:25] VITALS: BP_SYST 122
--- NOTE | 2021-01-27 02:50 | NUR ---
TRANSFER OF CARE. SBAR PROVIDED TO MAJOR TOLBERT. WILL ENDORSE CARE, AND ALL NEEDS MET AT THIS TIME.
--- NOTE | 2021-01-27 03:02 | NUR ---
ROUNDS PATIENT RESTING IN BED. NO DISTRESS NOTED. IVF INFUSING.
[2021-01-27] MEDS: metroNIDAZOLE 500 mg/NS 100 ML IV SCH ×2 (05:03→13:56)
[2021-01-27] MEDS: D5/0.45 NS 1,000 ML IV SCH (05:03)
--- NOTE | 2021-01-27 05:03 | NUR ---
ATB PATIENT DUE ANTIBIOTIC INFUSING. NO C/O PAIN AT THIS TIME.
--- NOTE | 2021-01-27 06:40 | NUR ---
CLOSING NOTES PATIENT NEEDS ATTENDED. IVF INFUSING WITH IV LINE INTACT AND PATENT. BED IN LOWEST LOCKED POSITION. CALL LIGHT WITH IN REACH.
--- NOTE | 2021-01-27 08:17 | NUR ---
OPENING NOTES RESTING IN BED, ALERT AND ORIENTED. NO SHORTNESS OF BREATH ON ROOM AIR. DENIES ANY PAIN. LAST BOWEL MOVEMENT WAS AT MIDNIGHT PER PATIENT. IV INFUSING WELL. REMINDED PATIENT THAT STOOL SAMPLE IS STILL NEEDED FOR MORE TESTS, VERBALIZED UNDERSTANDING. FALL AND SAFETY CHECKS DONE. CALL LIGHT WITHIN REACH. WILL MONITOR.
[2021-01-27 08:29] VITALS: BP_SYST 113
[2021-01-27 09:30] VITALS: BP_SYST 123
[2021-01-27] MEDS: PANTOPRAZOLE SODIUM 40 MG/VIAL (PROTONIX) IVP SCH (09:40)
[2021-01-27] MEDS: traMADol HCL HCL 50 MG TABLET (ULTRAM) PO SCH (09:41)
[2021-01-27] MEDS: LORATADINE 10 MG TABLET PO SCH (09:41)
[2021-01-27] MEDS: SULFAMETHOXAZOLE/TRIMETHOPR DS 1 TABLET PO SCH (09:42)
[2021-01-27] MEDS: DOXAZOSIN MESYLATE 2 MG TABLET PO SCH (09:42)
[2021-01-27] MEDS: BENZONATATE 100 MG CAPSULE (TESSALON) PO SCH (09:42)
[2021-01-27] MEDS: LOSARTAN POTASSIUM 50 MG TABLET (COZAAR) PO SCH (09:44)
[2021-01-27] MEDS: APIXABAN 2.5 MG TABLET PO SCH (09:44)
[2021-01-27] MEDS: ATENOLOL 25 MG TABLET(TENORMIN) PO SCH (09:45)
[2021-01-27] MEDS: ASPIRIN 81 MG TABLET(ECOTRIN) PO SCH (09:45)
[2021-01-27] MEDS: GABAPENTIN 400 MG CAPSULE PO SCH (09:45)
[2021-01-27] MEDS: valACYclovir HCL 500 MG TABLET PO SCH (09:45)
[2021-01-27] MEDS: HYDROCHLOROTHIAZIDE 25 MG TABLET (HCTZ) PO SCH (09:45)
--- NOTE | 2021-01-27 10:15 | NUR ---
MD ROUNDS DR. GOULD TALKED TO PATIENT AT BEDSIDE. INFORMED THAT PATIENT DID NOT HAVE ANY LOOSE STOOLS ANYMORE SINCE MIDNIGHT. CONFIRMED WITH MD TO CANCEL STOOL OB TESTS.
--- NOTE | 2021-01-27 10:45 | NUR ---
FORMED STOOL BROWNISH PASTY STOOL NOTED. 1ST BOWEL MOVEMENT SINCE MIDNIGHT.
[2021-01-27] MEDS ORDERED: LEVO500T89 PO (12:01)
[2021-01-27] MEDS ORDERED: METR500T PO (12:01)
[2021-01-27] MEDS: LEVOFLOXACIN IN DEXTROSE 5 % 100 ML IV SCH (12:28)
[2021-01-27 12:41] VITALS: BP_SYST 117
[2021-01-27 12:50] VITALS: BP_SYST 117
[2021-01-27 16:29] VITALS: BP_SYST 108
--- NOTE | 2021-01-27 16:30 | NUR ---
D/C Patient Patient given medication reconciliation form and D/C instructions. Exit Care provided. Patient verbalized understanding. MD discussed with patient the results and treatment provided. Ambulatory with steady gait for discharge to home. Patient in stable condition, ID band removed. IV catheter removed, intact and dressing applied, no active bleeding. Patient called his preferred pharmacy and confirmed receipt of prescriptions with them. Patient educated on pain management. All belongings sent with patient.
--- NOTE | 2021-01-29 08:42 | NUR ---
Disposition 01
== END 2021-01-27 16:35 | disposition home or self-care (01) | DRG 894 ==
LOC: SED 13:04 → STU 16:53 → OBSVTOIN 01-25 10:55 → SMU 01-27 09:50
PROVIDERS: ADMIT Internal Medicine; ATTEND Internal Medicine
DX: A08.4 Viral intestinal infection, unspecified (principal); B20 Human immunodeficiency virus [HIV] disease; E66.01 Morbid (severe) obesity due to excess calories; E11.9 Type 2 diabetes mellitus without complications; K21.9 Gastro-esophageal reflux disease without esophagitis; I10 Essential (primary) hypertension; Z20.822 Contact with and (suspected) exposure to COVID-19; I25.10 Atherosclerotic heart disease of native coronary artery without angina pectoris; M51.26 Other intervertebral disc displacement, lumbar region; R07.89 Other chest pain; Z79.01 Long term (current) use of anticoagulants; Z86.711 Personal history of pulmonary embolism; Z87.19 Personal history of other diseases of the digestive system; Z86.73 Personal history of transient ischemic attack (TIA), and cerebral infarction without residual deficits; Z87.891 Personal history of nicotine dependence; Z79.899 Other long term (current) drug therapy; Z91.09 Other allergy status, other than to drugs and biological substances; Z79.82 Long term (current) use of aspirin; I25.2 Old myocardial infarction; Z68.37 Body mass index [BMI] 37.0-37.9, adult
CPT/HCPCS: 36415; 71045; 76376; 80048; 80053; 81003; 82150; 82272; 83036; 83605; 83615; 83690; 83880; 84484; 85025; 85610-TC; 85730-TC; 86140; 87045-TC; 87046; 87177; 87230-TC; 87536; 89055; 93005; 93306; 99291; C9113; G0378; G9035; J1650; J1956; J2270; J2405; J3490; Q9964; Q9967

== ENCOUNTER 2021-04-21 16:09 | Emergency (ER) | payer MEDICAID, SELFPAY ==
[~2021-04-21] VITALS: Ht 180.3 cm; Wt 106.1 kg
[~2021-04-21 16:09] MED LIST changes: +ATEN-41 PO; -DOXY100T2 PO; +LEVO500T89 PO; +LOSA50TA3 PO; +METR500T PO; -OSEL75CA PO; -SULF1TAB48 PO; +VALA10002 PO
[2021-04-21 16:20] VITALS: BP_SYST 139
[2021-04-21] MEDS ORDERED: MECLIZINE HCL 25 MG TABLET (ANITVERT) PO ONE (18:45)
[2021-04-21] MEDS ORDERED: NACL 0.9% 1,000 ML IV ONE ×2 (18:45→20:30)
[2021-04-21 19:30] LABS: BASOPHILS % (AUTO) 0.7 % (0.0-2.0); HEMATOCRIT 40.7 % (36-54); HEMOGLOBIN 13.7 g/dL (14.0-18.0); LYMPHOCYTES # (AUTO) 0.6 K/uL (1.0-5.5); LYMPHOCYTES % (AUTO) 10.2 % (20.5-51.5); MEAN CORPUSCULAR HEMOGLOBIN 33 pg (27-31); MEAN CORPUSCULAR HGB CONC 34 % (32-36); MEAN CORPUSCULAR VOLUME 97 fL (79.0-98.0); MONOCYTES # (AUTO) 0.3 K/uL (0.0-1.0); MONOCYTES % (AUTO) 5.3 % (1.7-9.3); NEUTROPHILS # (AUTO) 4.6 K/uL (1.8-7.7); NEUTROPHILS % (AUTO) 83.8 % (40.0-70.0); PLATELET COUNT (AUTO) 158 K/uL (130-430); RED CELL DISTRIBUTION WIDTH 15.4 % (9.0-15.0); WHITE BLOOD COUNT (AUTO) 5.5 K/uL (4.8-10.8)
[2021-04-21 19:40] LABS: CALCIUM 8.9 mg/dL (8.4-11.0); CREATININE 1.44 mg/dL (0.55-1.30); POTASSIUM 4.4 mmol/L (3.5-5.1)
[2021-04-21 19:45] LABS: ALBUMIN 3.2 g/dL (3.4-4.8); TOTAL BILIRUBIN 0.6 mg/dL (0.0-1.0)
[2021-04-21 19:46] LABS: INR 0.9 (0.80-1.20); PROTHROMBIN TIME 9.9 SECS (9.5-12.5)
[2021-04-21] MEDS ORDERED: IOHEXOL 350 mgI/mL, 150 ML INFUS..BTL IV ONE (20:57)
[2021-04-21 21:37] LABS: ERYTHROCYTE SEDIMENTATION RATE 2 MM/HR (0-15)
[2021-04-21] MEDS ORDERED: DEXAMETHASONE SOD PHOSPHATE 4 MG/ML VIAL IVP ONE (22:30)
[2021-04-21] MEDS ORDERED: METOCLOPRAMIDE HCL 10 MG/2 ML VIAL IVP ONE (23:00)
[2021-04-21] MEDS ORDERED: ACETAMINOPHEN 500 MG TABLET PO ONE (23:00)
[2021-04-22] MEDS ORDERED: METF-834 PO (02:45)
[2021-04-22] MEDS ORDERED: MULT-1145 PO (02:45)
[2021-04-22] MEDS ORDERED: ABAC1TAB15 PO (02:45)
[2021-04-22] MEDS ORDERED: DARU1TAB PO (02:45)
[2021-04-22 04:32] VITALS: BP_SYST 108
== END 2021-04-22 04:32 | disposition home or self-care (01) ==
LOC: SED 16:09
DX: J04.0 Acute laryngitis (principal); E11.65 Type 2 diabetes mellitus with hyperglycemia; I10 Essential (primary) hypertension; K21.9 Gastro-esophageal reflux disease without esophagitis; Z88.8 Allergy status to other drugs, medicaments and biological substances; Z79.82 Long term (current) use of aspirin; Z79.84 Long term (current) use of oral hypoglycemic drugs; Z79.899 Other long term (current) drug therapy; Z79.01 Long term (current) use of anticoagulants; Z20.822 Contact with and (suspected) exposure to COVID-19
CPT/HCPCS: 36415; 70498; 71045; 76376; 80053; 82962; 83605; 85025; 85610; 85651; 85730; 86403; 87040; 87081; 87426; 93005; 96361; 96374; 96375; 99285; J1100; J2765; J7030; J8597; Q9967

== ENCOUNTER 2021-07-04 14:33 | Emergency (ER) | payer MEDICAID, SELFPAY ==
[~2021-07-04] VITALS: Ht 180.3 cm; Wt 108.9 kg
[~2021-07-04 14:33] MED LIST changes: -ACYC400T19 PO; -BENZ-16 PO; +CETI10CA11 PO; -CHOL100038 PO; +DAPS100T2 PO; -DOXA2TAB PO; -GABA800T PO; -GLU850 PO; -HYDR25TA4 PO; -LEVO500T89 PO; -LORA10TA7 PO; +METF-834 PO; -METR500T PO; +MULT-1094 PO; -OXYC-128 PO; -RANI-673 PO; -TRAM50TA92 PO; -VALS40TA6 PO; +VITD2000 PO
[2021-07-04 15:10] VITALS: BP_SYST 120
--- NOTE | 2021-07-04 15:15 | NUR ---
Patient to ER bed 7 to gown for evaluation. Side rails up.
--- NOTE | 2021-07-04 15:50 | NUR ---
Dr. Sal at bedside to assess.
--- NOTE | 2021-07-04 15:55 | NUR ---
Pt ambulated to radiology dept.
--- NOTE | 2021-07-04 16:10 | NUR ---
Pt is back from radiology dept.
--- NOTE | 2021-07-04 16:15 | NUR ---
# 20 gauge angiocath placed to Right AC. Use of asceptic technique. Opsite placed over site. Blood return noted. Blood for lab drawn from site. Flushed with 10 cc of normal saline. No evidence of infiltration noted. Patient tolerated well.
[2021-07-04 16:30] LABS: BASOPHILS % (AUTO) 0.4 % (0.0-2.0); EOSINOPHILS # (AUTO) 0.1 K/uL (0.0-0.4); HEMATOCRIT 30.4 % (36-54); HEMOGLOBIN 10.2 g/dL (14.0-18.0); LYMPHOCYTES # (AUTO) 0.8 K/uL (1.0-5.5); LYMPHOCYTES % (AUTO) 10.8 % (20.5-51.5); MEAN CORPUSCULAR HEMOGLOBIN 32 pg (27-31); MEAN CORPUSCULAR HGB CONC 33 % (32-36); MEAN CORPUSCULAR VOLUME 96 fL (79.0-98.0); MONOCYTES # (AUTO) 0.5 K/uL (0.0-1.0); MONOCYTES % (AUTO) 6.2 % (1.7-9.3); NEUTROPHILS # (AUTO) 6.4 K/uL (1.8-7.7); NEUTROPHILS % (AUTO) 81.6 % (40.0-70.0); PLATELET COUNT (AUTO) 172 K/uL (130-430); RED BLOOD CELL COUNT(AUTO) 3.18 MIL/uL (4.2-6.2); RED CELL DISTRIBUTION WIDTH 16.8 % (9.0-15.0); WHITE BLOOD COUNT (AUTO) 7.8 K/uL (4.8-10.8)
[2021-07-04] MEDS ORDERED: ACETAMINOPHEN 325 MG TABLET PO ONE (16:30)
--- NOTE | 2021-07-04 16:32 | NUR ---
Covid/flu swab obtained and sent to lab for analysis.
[2021-07-04 17:07] LABS: BILIRUBIN,URINE NEGATIVE (NEGATIVE); CLARITY/URINE CLEAR (CLEAR); COLOR,URINE YELLOW (YELLOW); GLUCOSE,URINE NEGATIVE (NEGATIVE); KETONES,URINE NEGATIVE (NEGATIVE); LEUKOCYTE ESTERASE ,URINE NEGATIVE (NEGATIVE); NITRITE, URINE NEGATIVE (NEGATIVE); PROTEIN URINE TRACE (NEGATIVE); UROBILINOGEN,URINE 0.2 (0.2-1.0)
[2021-07-04 17:31] LABS: CALCIUM 8.7 mg/dL (8.4-11.0); CREATININE 1.51 mg/dL (0.55-1.30); POTASSIUM 3.8 mmol/L (3.5-5.1)
[2021-07-04 17:36] LABS: ALBUMIN 3.4 g/dL (3.4-4.8); TOTAL BILIRUBIN 0.7 mg/dL (0.0-1.0)
[2021-07-04 17:52] LABS: BLOOD, URINE NEGATIVE (NEGATIVE)
--- NOTE | 2021-07-04 18:10 | NUR ---
Resting in bed; in no acute distress. Awaiting further treatment/orders per MD. Will continue to monitor.
[2021-07-04] MEDS ORDERED: LEVO750T45 PO ×3 (18:23→18:56)
[2021-07-04] MEDS ORDERED: cefTRIAXone 250 MG in LIDOCAINE 1%, 20 ML MDV 0.9 ML IM ONE (18:30)
[2021-07-04] MEDS ORDERED: levoFLOXacin 500 MG TABLET PO ONE (18:30)
--- NOTE | 2021-07-04 18:47 | NUR ---
Patient given written and verbal discharge instructions and verbalizes understanding. ER MD discussed with patient the results and treatment provided. Patient in stable condition. ID arm band removed. IV catheter removed intact and dressing applied, no active bleeding. Rx of Levaquin given. Patient educated on pain management and to follow up with PMD. Pain Scale 5/10. Opportunity for questions provided and answered. Medication side effect fact sheet provided.
[2021-07-04 19:02] VITALS: BP_SYST 120
[2021-07-06 02:06] LABS: CHLAMYDIA TRACHOMATIS NAA Negative (Negative); NEISSERIA GONORRHOEAE NAA Negative (Negative)
== END 2021-07-04 18:46 | disposition home or self-care (01) ==
LOC: SED 14:33
DX: N45.1 Epididymitis (principal); N43.3 Hydrocele, unspecified; N17.9 Acute kidney failure, unspecified; I10 Essential (primary) hypertension; E11.9 Type 2 diabetes mellitus without complications; K21.9 Gastro-esophageal reflux disease without esophagitis; Z79.899 Other long term (current) drug therapy; Z20.822 Contact with and (suspected) exposure to COVID-19
CPT/HCPCS: 36415; 76870; 80053; 81003; 83605; 85025; 86710; 87040; 87086; 87426; 87491; 87591; 96372; 99284; J0696; J2001

== ENCOUNTER 2021-08-17 14:17 | Emergency (ER) | payer MEDICAID, SELFPAY ==
[~2021-08-17] VITALS: Ht 180.3 cm; Wt 115.7 kg
[2021-08-17 14:17] VITALS: BP_SYST 103
[~2021-08-17 14:17] MED LIST changes: +LEVO750T45 PO
--- NOTE | 2021-08-17 14:30 | NUR ---
Patient triaged and placed in waiting room. VSS and patient appears in no acute distress at this time. Accompanied by FAMILY, awaiting available bed, and MD notified of need for MSE.
--- NOTE | 2021-08-17 14:45 | NUR ---
PT STATES HE TOOK A COVID TEST LAST NIGHT AND IT WAS NEGATIVE, REQUESTING ANOTHER TEST BE DONE. PT STATES HE IS IMMUNOCOMPROMISED AND HAS BEEN NEAR PEOPLE WHO ARE POSITIVE. NO SYMPTOMS.
--- NOTE | 2021-08-17 16:20 | NUR ---
AWAITING TO BE SEEN BY MD, NO NEW COMPLAINTS
--- NOTE | 2021-08-17 17:47 | NUR ---
Jed dorado in ED - 08/17/21 at 1747 by ZE AWAITING TO BE SEEN BY , NO NEW COMPLAINTS
--- NOTE | 2021-08-17 21:30 | NUR ---
Called patient in, no answer. Patient left without being seen. ER MD made aware
== END 2021-08-17 21:30 | disposition left against medical advice (07) ==
LOC: SED 14:17
DX: R05.9 Cough, unspecified (principal); Z53.21 Procedure and treatment not carried out due to patient leaving prior to being seen by health care provider

== ENCOUNTER 2022-06-24 15:35 | Emergency (ER) | payer MEDICAID ==
[~2022-06-24] VITALS: Ht 180.3 cm; Wt 127.0 kg
[~2022-06-24 15:35] MED LIST changes: -LEVO750T45 PO; +LEVO750T64 PO
[2022-06-24 15:44] VITALS: BP_SYST 145
[2022-06-24 16:53] LABS: BASOPHILS % (AUTO) 0.6 % (0.0-2.0); HEMATOCRIT 38.3 % (36-54); LYMPHOCYTES % (AUTO) 16.9 % (20.5-51.5); MEAN CORPUSCULAR HEMOGLOBIN 31 pg (27-31); MEAN CORPUSCULAR HGB CONC 34 % (32-36); MEAN CORPUSCULAR VOLUME 92 fL (79.0-98.0); MONOCYTES # (AUTO) 0.6 K/uL (0.0-1.0); MONOCYTES % (AUTO) 9.6 % (1.7-9.3); NEUTROPHILS # (AUTO) 4.3 K/uL (1.8-7.7); NEUTROPHILS % (AUTO) 72.9 % (40.0-70.0); PLATELET COUNT (AUTO) 173 K/uL (130-430); RED BLOOD CELL COUNT(AUTO) 4.18 MIL/uL (4.2-6.2); RED CELL DISTRIBUTION WIDTH 14.5 % (9.0-15.0); WHITE BLOOD COUNT (AUTO) 5.9 K/uL (4.8-10.8)
[2022-06-24 17:15] LABS: ANION GAP 9 (5-15); CALCIUM 8.9 mg/dL (8.4-11.0); CHLORIDE 100 mmol/L (98-107); CREATININE 1.64 mg/dL (0.55-1.30); GFR AFRICAN AMERICAN 56 mL/min (>90); GLUCOSE 287 mg/dL (70-99); UREA NITROGEN, BLOOD 30 mg/dL (8-21)
[2022-06-24 17:16] LABS: ALANINE AMINOTRANSFERASE 33 U/L (12-78); ASPARTATE AMINOTRANSFERASE 9 U/L (10-37); LIPASE 130 U/L (73-393); TOTAL BILIRUBIN 0.7 mg/dL (0.0-1.0)
[2022-06-24 17:22] LABS: ACETONE, SERUM NEGATIVE (NEGATIVE)
[2022-06-24 18:45] LABS: BILIRUBIN,URINE NEGATIVE (NEGATIVE); CLARITY/URINE CLEAR (CLEAR); COLOR,URINE YELLOW (YELLOW); GLUCOSE,URINE 2+ (NEGATIVE); KETONES,URINE NEGATIVE (NEGATIVE); LEUKOCYTE ESTERASE ,URINE NEGATIVE (NEGATIVE); NITRITE, URINE NEGATIVE (NEGATIVE); PH,URINE 5.5 (5.0-8.0); PROTEIN URINE NEGATIVE (NEGATIVE); UROBILINOGEN,URINE 0.2 (0.2-1.0)
[2022-06-24 18:46] LABS: BLOOD, URINE TRACE (NEGATIVE)
[2022-06-24 19:03] LABS: BACTERIA,URINE FEW /HPF (None Seen); WBC,URINE 0-3 /HPF (0-3)
--- NOTE | 2022-06-24 19:42 | NUR ---
Placed in room 6 . Placed on athletic monitor, blood pressure machine and pulse oximeter. To gown for exam. Side rails up. Report given to MAGDALENO GONSALVES.
[2022-06-24] MEDS ORDERED: NACL 0.9% 1,000 ML IV ONE ×2 (19:45→20:00)
--- NOTE | 2022-06-24 19:45 | NUR ---
PATIENT IS AWAKE AND ALERT. PT C/O FREQ.URINATION, HYPERGYLCEMIA AND WEAKNESS X 1.5 WKS. NO S/S OF SOB OR ACUTE DISTRESS NOTED AT THIS TIME. SAFETY PRECAUTIONS IN PLACE. WILL CONTINUE TO MONITOR.
[2022-06-24] MEDS ORDERED: INSULIN REGULAR, HUMAN 10 UNITS/0.1 ML, 3 ML VIAL IVP ONE (20:00)
--- NOTE | 2022-06-24 21:15 | NUR ---
PATIENT RESTING IN BED. VSS. WILL CONTINUE TO MONITOR.
[2022-06-24 22:35] VITALS: BP_SYST 145
--- NOTE | 2022-06-24 22:35 | NUR ---
Patient given written and verbal discharge instructions and verbalizes understanding. ER MD CANNON discussed with patient the results and treatment provided. Patient in stable condition. ID arm band removed. IV catheter removed intact and dressing applied, no active bleeding. Patient educated on pain management and to follow up with PMD. Pain Scale 0/10. Opportunity for questions provided and answered.
== END 2022-06-24 22:35 | disposition home or self-care (01) ==
LOC: SED 15:35
DX: E11.65 Type 2 diabetes mellitus with hyperglycemia (principal); R73.9 Hyperglycemia, unspecified; N17.9 Acute kidney failure, unspecified; K21.9 Gastro-esophageal reflux disease without esophagitis; R63.1 Polydipsia; I11.0 Hypertensive heart disease with heart failure; I50.9 Heart failure, unspecified; Z83.0 Family history of human immunodeficiency virus [HIV] disease; Z91.011 Allergy to milk products; Z79.899 Other long term (current) drug therapy
CPT/HCPCS: 99283; 96374; 80053; 81000; 82009; 82962; 83690; 83930; 85025; 87040; 87086; 36415; 36600; 82803; 83605; J1815; J7030

== ENCOUNTER 2022-11-21 00:15 | Emergency (ER) | payer MEDICAID ==
[2022-11-21 00:46] VITALS: BP_SYST 135
--- NOTE | 2022-11-21 00:53 | NUR ---
Patient to ER bed 7 to gown for evaluation. Side rails up. Report given to salomon kumar.
[2022-11-21] MEDS ORDERED: MORPHINE 4 MG INJ. 4 MG/ML VIAL IVP ONE (01:00)
[2022-11-21] MEDS ORDERED: NACL 0.9% 1,000 ML IV ONE (01:00)
--- NOTE | 2022-11-21 01:00 | NUR ---
PT BIB SELF FROM HOME, AMBULATED TO BED 7. PT A&Ox4, ABLE TO MAKE NEEDS KNOWN. PT C/O BODY PAIN x1 WEEK. PT RATES PAIN /. PT DESCRIBES PAIN SENSITIVE TO TOUCH AND THROBBING. PT DENIES SOB AND CHEST PAIN. PT DENIES N/V/D. PT DENIES FEVER. PT STATES HE TOOK AN AT HOME COVID TEST ON 11/20/2022 AND IT CAME BACK NEGATIVE. PT HAS HISTORY OF ANEMIA AND ARTHRITIS IN THE HANDS. PT TAKES ELIQUIS. SAFETY PRECAUTION IN PLACE.
--- NOTE | 2022-11-21 01:07 | NUR ---
ER Dr.DE WALDROP at bedside examining patient.
[2022-11-21 02:32] LABS: ANION GAP 7 (5-15); CALCIUM 8.9 mg/dL (8.4-11.0); CHLORIDE 101 mmol/L (98-107); CREATININE 1.64 mg/dL (0.55-1.30); GFR AFRICAN AMERICAN 55 mL/min (>90); GLUCOSE 223 mg/dL (70-99); UREA NITROGEN, BLOOD 13 mg/dL (8-21)
[2022-11-21 02:39] LABS: ALANINE AMINOTRANSFERASE 25 U/L (12-78); ALBUMIN 3.6 g/dL (3.4-4.8); ASPARTATE AMINOTRANSFERASE 14 U/L (10-37); TOTAL BILIRUBIN 0.4 mg/dL (0.0-1.0)
[2022-11-21 02:41] LABS: BASOPHILS % (AUTO) 0.4 % (0.0-2.0); EOSINOPHILS # (AUTO) 0.2 K/uL (0.0-0.4); EOSINOPHILS % (AUTO) 3.9 % (0.0-4.0); HEMATOCRIT 34.9 % (36-54); HEMOGLOBIN 11.6 g/dL (14.0-18.0); LYMPHOCYTES # (AUTO) 1.3 K/uL (1.0-5.5); LYMPHOCYTES % (AUTO) 28.2 % (20.5-51.5); MEAN CORPUSCULAR HEMOGLOBIN 30 pg (27-31); MEAN CORPUSCULAR HGB CONC 33 % (32-36); MEAN CORPUSCULAR VOLUME 90 fL (79.0-98.0); MONOCYTES # (AUTO) 0.5 K/uL (0.0-1.0); MONOCYTES % (AUTO) 10.7 % (1.7-9.3); NEUTROPHILS # (AUTO) 2.7 K/uL (1.8-7.7); NEUTROPHILS % (AUTO) 56.8 % (40.0-70.0); PLATELET COUNT (AUTO) 204 K/uL (130-430); RED BLOOD CELL COUNT(AUTO) 3.88 MIL/uL (4.2-6.2); RED CELL DISTRIBUTION WIDTH 14.8 % (9.0-15.0); RETICULOCYTE COUNT 1.8 % (0.5-1.5); WHITE BLOOD COUNT (AUTO) 4.7 K/uL (4.8-10.8)
[2022-11-21] MEDS ORDERED: LIDO1ADH71 TD (02:54)
[2022-11-21] MEDS ORDERED: OXYC-128 PO (02:54)
[2022-11-21] MEDS ORDERED: ACET-2634 PO (02:54)
[2022-11-21 03:12] VITALS: BP_SYST 130
--- NOTE | 2022-11-21 03:12 | NUR ---
Patient given written and verbal discharge instructions and verbalizes understanding. ER DR. MACdiscussed with patient the results and treatment provided. Patient in stable condition. ID arm band removed. IV catheter removed intact and dressing applied, no active bleeding. Rx of TYLENOL, LIDOCAINE, PERCOCET given. Patient educated on pain management and to follow up with PMD. Pain Scale 4/10. Opportunity for questions provided and answered. Medication side effect fact sheet provided.
--- NOTE | 2022-11-21 09:35 | NUR ---
Respiratory Therapy Director re: homelessness In ED to follow up with patient regarding his homelessness, however he was already discharge therefore the patient was not seen. I followed up with MAJOR Michel who advised that the patient was discharged back home. I advised the nurse the patient is in need of a code correction, as the patient is not homeless. No further follow up is needed from social and political studies professor.
== END 2022-11-21 03:12 | disposition home or self-care (01) ==
LOC: SED 00:15
DX: M54.50 Low back pain, unspecified (principal); E11.9 Type 2 diabetes mellitus without complications; K21.9 Gastro-esophageal reflux disease without esophagitis; I10 Essential (primary) hypertension; Z91.011 Allergy to milk products; Z79.899 Other long term (current) drug therapy
CPT/HCPCS: 99284; 96374; 71045; 96361; 80053; 85025; 85044; 84484; 36415; 72080; J2270; J7030

== ENCOUNTER 2022-11-26 17:58 | Inpatient (IN) | payer MEDICAID ==
[~2022-11-26] VITALS: Ht 180.3 cm; Wt 121.6 kg
[2022-11-26 10:50] VITALS: BP_SYST 164
[~2022-11-26 17:58] MED LIST changes: +ACET-2634 PO; +LIDO1ADH71 TD; +OXYC-128 PO
[2022-11-26 18:14] VITALS: BP_SYST 158
[2022-11-26 19:42] LABS: BASOPHILS % (AUTO) 0.6 % (0.0-2.0); EOSINOPHILS # (AUTO) 0.2 K/uL (0.0-0.4); EOSINOPHILS % (AUTO) 2.3 % (0.0-4.0); HEMOGLOBIN 11.1 g/dL (14.0-18.0); LYMPHOCYTES # (AUTO) 0.9 K/uL (1.0-5.5); LYMPHOCYTES % (AUTO) 13.5 % (20.5-51.5); MEAN CORPUSCULAR HEMOGLOBIN 31 pg (27-31); MEAN CORPUSCULAR HGB CONC 34 % (32-36); MEAN CORPUSCULAR VOLUME 90 fL (79.0-98.0); MONOCYTES # (AUTO) 0.6 K/uL (0.0-1.0); NEUTROPHILS # (AUTO) 5.1 K/uL (1.8-7.7); NEUTROPHILS % (AUTO) 74.6 % (40.0-70.0); PLATELET COUNT (AUTO) 215 K/uL (130-430); RED BLOOD CELL COUNT(AUTO) 3.65 MIL/uL (4.2-6.2); RED CELL DISTRIBUTION WIDTH 14.7 % (9.0-15.0); WHITE BLOOD COUNT (AUTO) 6.8 K/uL (4.8-10.8)
[2022-11-26 20:03] LABS: BILIRUBIN,URINE NEGATIVE (NEGATIVE); BLOOD, URINE NEGATIVE (NEGATIVE); CLARITY/URINE CLEAR (CLEAR); COLOR,URINE YELLOW (YELLOW); GLUCOSE,URINE NEGATIVE (NEGATIVE); KETONES,URINE NEGATIVE (NEGATIVE); LEUKOCYTE ESTERASE ,URINE NEGATIVE (NEGATIVE); NITRITE, URINE NEGATIVE (NEGATIVE); PH,URINE 5.5 (5.0-8.0); PROTEIN URINE NEGATIVE (NEGATIVE); UROBILINOGEN,URINE 0.2 (0.2-1.0)
[2022-11-26 20:04] LABS: ALANINE AMINOTRANSFERASE 21 U/L (12-78); ALBUMIN 3.3 g/dL (3.4-4.8); ANION GAP 6 (5-15); ASPARTATE AMINOTRANSFERASE 15 U/L (10-37); CALCIUM 9.1 mg/dL (8.4-11.0); CHLORIDE 105 mmol/L (98-107); CREATININE 1.28 mg/dL (0.55-1.30); GFR AFRICAN AMERICAN 74 mL/min (>90); GLUCOSE 166 mg/dL (70-99); TOTAL BILIRUBIN 0.4 mg/dL (0.0-1.0); UREA NITROGEN, BLOOD 16 mg/dL (8-21)
[2022-11-26] MEDS ORDERED: LOSARTAN POTASSIUM 25 MG TABLET PO ONE (20:30)
[2022-11-26] MEDS ORDERED: FUROSEMIDE 40 MG/4 ML VIAL IVP ONE (20:30)
[2022-11-26] MEDS ORDERED: KETOROLAC TROMETHAMINE 30 MG VIAL IVP ONE (20:30)
[2022-11-26] MEDS ORDERED: LOSARTAN POTASSIUM 25 MG TABLET ONE (22:23)
[2022-11-26 23:42] VITALS: BP_SYST 164
[2022-11-26] MEDS ORDERED: LORazepam 2 MG/ML VIAL IVP PRN (23:45)
[2022-11-26] MEDS ORDERED: NALOXONE HCL 0.4 MG/ML AMP (NARCAN) IVP PRN ×2 (23:45)
[2022-11-26] MEDS ORDERED: ALBUTEROL SULFATE 0.083% 2.5 MG/3 ML VIAL.NEB INH PRN (23:45)
[2022-11-26] MEDS ORDERED: HYDROcodone/ACETAMIN 5-325 MG TAB (NORCO/ VICODIN) PO PRN (23:45)
[2022-11-26] MEDS ORDERED: ACETAMINOPHEN 325 MG TABLET PO PRN (23:45)
[2022-11-26] MEDS ORDERED: IPRATROPIUM BROM 0.5 MG/2.5 ML VIAL.NEB (ATROVENT) INH PRN (23:45)
[2022-11-26] MEDS ORDERED: ACETAMINOPHEN 500 MG TABLET PO PRN (23:45)
[2022-11-27] VITALS: BP_SYST 139
[2022-11-27] MEDS: HYDROcodone/ACETAMIN 10-325 MG TAB PO PRN (01:00)
[2022-11-27 05:24] LABS: BASOPHILS % (AUTO) 0.5 % (0.0-2.0); EOSINOPHILS # (AUTO) 0.2 K/uL (0.0-0.4); EOSINOPHILS % (AUTO) 2.9 % (0.0-4.0); HEMATOCRIT 33.2 % (36-54); LYMPHOCYTES % (AUTO) 14.8 % (20.5-51.5); MEAN CORPUSCULAR HEMOGLOBIN 30 pg (27-31); MEAN CORPUSCULAR HGB CONC 33 % (32-36); MEAN CORPUSCULAR VOLUME 90 fL (79.0-98.0); MONOCYTES # (AUTO) 0.7 K/uL (0.0-1.0); MONOCYTES % (AUTO) 9.5 % (1.7-9.3); NEUTROPHILS % (AUTO) 72.3 % (40.0-70.0); PLATELET COUNT (AUTO) 218 K/uL (130-430); RED BLOOD CELL COUNT(AUTO) 3.69 MIL/uL (4.2-6.2); RED CELL DISTRIBUTION WIDTH 14.5 % (9.0-15.0)
[2022-11-27 05:28] VITALS: BP_SYST 139
[2022-11-27 05:57] LABS: ALBUMIN 3.1 g/dL (3.4-4.8); CALCIUM 8.9 mg/dL (8.4-11.0); CREATININE 1.2 mg/dL (0.55-1.30); PHOSPHORUS 4.5 mg/dL (2.7-4.5); TOTAL BILIRUBIN 0.4 mg/dL (0.0-1.0)
[2022-11-27] MEDS ORDERED: NORMAL SALINE 5 ML DISP.SYRIN IVF SCH (06:00)
[2022-11-27] MEDS: NORMAL SALINE 5 ML DISP.SYRIN IVF SCH ×3 (06:13→21:06)
[2022-11-27 08:00] VITALS: BP_SYST 134
[2022-11-27] MEDS ORDERED: LORATADINE 10 MG TABLET PO SCH (09:00)
[2022-11-27] MEDS ORDERED: ATENOLOL 25 MG TABLET(TENORMIN) PO SCH (09:00)
[2022-11-27] MEDS: FUROSEMIDE 20 MG/2 ML VIAL IVP SCH ×2 (09:20→20:56)
[2022-11-27] MEDS: valACYclovir HCL 500 MG TABLET PO SCH (09:29)
[2022-11-27] MEDS: MULTIVITS,CA,MINERALS/IRON/FA 1 TABLET PO SCH (09:30)
[2022-11-27] MEDS: LOSARTAN POTASSIUM 50 MG TABLET (COZAAR) PO SCH (09:30)
[2022-11-27] MEDS: LIDOCAINE PATCH 5% 1 EA TP SCH (09:31)
[2022-11-27] MEDS: CHOLECALCIFEROL (VITAMIN D3) 2,000 UNIT TABLET PO SCH (09:31)
[2022-11-27] MEDS: ASPIRIN 81 MG TABLET(ECOTRIN) PO SCH (09:31)
[2022-11-27] MEDS: levoFLOXacin 750 MG TABLET PO SCH (09:31)
[2022-11-27] MEDS: APIXABAN 2.5 MG TABLET PO SCH (09:46)
[2022-11-27 12:00] VITALS: BP_SYST 135
[2022-11-27] MEDS ORDERED: ISOSORBIDE MONONITRATE 30 MG TAB.ER.24H PO ONE (13:00)
[2022-11-27] MEDS ORDERED: CARVEDILOL 12.5 MG TABLET (COREG) PO ONE (13:45)
[2022-11-27] MEDS: COBICISTAT PO SCH (17:22)
[2022-11-27] MEDS: DARUNAVIR PO SCH (17:22)
[2022-11-27] MEDS: Abacavir/Dolutegravir/Lamivudi (Triumeq Tablet) PO SCH (17:23)
[2022-11-27 20:00] VITALS: BP_SYST 118
[2022-11-27] MEDS: DOXAZOSIN MESYLATE 2 MG TABLET PO SCH (20:54)
[2022-11-27] MEDS: ATORVASTATIN 10 MG TABLET PO SCH (20:55)
[2022-11-27] MEDS ORDERED: DARUNAVIR PO SCH (21:00)
[2022-11-27] MEDS ORDERED: CARVEDILOL 12.5 MG TABLET (COREG) PO SCH (21:00)
[2022-11-27] MEDS ORDERED: Abacavir/Dolutegravir/Lamivudi (Triumeq Tablet) PO SCH (21:00)
[2022-11-27] MEDS ORDERED: COBICISTAT PO SCH (21:00)
[2022-11-28] VITALS (7 sets, daily range): BP systolic 114–132
[2022-11-28 05:50] LABS: BASOPHILS % (AUTO) 0.3 % (0.0-2.0); EOSINOPHILS # (AUTO) 0.1 K/uL (0.0-0.4); EOSINOPHILS % (AUTO) 1.7 % (0.0-4.0); HEMATOCRIT 33.7 % (36-54); HEMOGLOBIN 11.3 g/dL (14.0-18.0); LYMPHOCYTES # (AUTO) 0.9 K/uL (1.0-5.5); MEAN CORPUSCULAR HEMOGLOBIN 30 pg (27-31); MEAN CORPUSCULAR HGB CONC 33 % (32-36); MEAN CORPUSCULAR VOLUME 89 fL (79.0-98.0); MONOCYTES # (AUTO) 0.8 K/uL (0.0-1.0); MONOCYTES % (AUTO) 11.2 % (1.7-9.3); NEUTROPHILS # (AUTO) 5.2 K/uL (1.8-7.7); NEUTROPHILS % (AUTO) 73.8 % (40.0-70.0); PLATELET COUNT (AUTO) 223 K/uL (130-430); RED BLOOD CELL COUNT(AUTO) 3.77 MIL/uL (4.2-6.2); RED CELL DISTRIBUTION WIDTH 14.4 % (9.0-15.0)
[2022-11-28] MEDS: HYDROcodone/ACETAMIN 10-325 MG TAB PO PRN (06:12)
[2022-11-28] MEDS: INSULIN REGULAR, HUMAN 100 UNITS/ML, 3 ML VIAL (humuLIN R) SUBCUT PRN ×3 (06:17→18:05)
[2022-11-28 06:18] LABS: CALCIUM 8.9 mg/dL (8.4-11.0); CREATININE 1.2 mg/dL (0.55-1.30)
[2022-11-28] MEDS: NORMAL SALINE 5 ML DISP.SYRIN IVF SCH ×3 (06:21→22:26)
[2022-11-28] MEDS: DAPSONE 100MG TABLET PO SCH (09:00)
[2022-11-28] MEDS ORDERED: DAPSONE 100MG TABLET PO SCH (09:00)
[2022-11-28] MEDS: LIDOCAINE PATCH 5% 1 EA TP SCH (09:00)
[2022-11-28] MEDS: ONDANSETRON HCL 4 MG/2 ML VIAL IVP PRN (09:33)
[2022-11-28] MEDS ORDERED: REGADENOSON 0.4 MG/5 ML SYRINGE IVP ONE (10:00)
[2022-11-28] MEDS ORDERED: CARVEDILOL 25 MG TABLET (COREG) PO ONE (12:35)
[2022-11-28] MEDS: levoFLOXacin 750 MG TABLET PO SCH (12:37)
[2022-11-28] MEDS: ASPIRIN 81 MG TABLET(ECOTRIN) PO SCH (12:38)
[2022-11-28] MEDS: MULTIVITS,CA,MINERALS/IRON/FA 1 TABLET PO SCH (12:38)
[2022-11-28] MEDS: CHOLECALCIFEROL (VITAMIN D3) 2,000 UNIT TABLET PO SCH (12:39)
[2022-11-28] MEDS: LOSARTAN POTASSIUM 50 MG TABLET (COZAAR) PO SCH (12:42)
[2022-11-28] MEDS: LORATADINE 10 MG TABLET PO SCH (12:42)
[2022-11-28] MEDS: ISOSORBIDE MONONITRATE 30 MG TAB.ER.24H PO SCH (12:43)
[2022-11-28] MEDS: FUROSEMIDE 20 MG/2 ML VIAL IVP SCH ×2 (12:43→22:09)
[2022-11-28] MEDS: valACYclovir HCL 500 MG TABLET PO SCH (12:46)
[2022-11-28] MEDS: APIXABAN 2.5 MG TABLET PO SCH (12:51)
[2022-11-28] MEDS: OXYCODONE/ACETAMINOPHEN 5-325 TABLET PO PRN ×2 (15:21→22:08)
[2022-11-28] MEDS: COBICISTAT PO SCH (18:03)
[2022-11-28] MEDS: DARUNAVIR PO SCH (18:03)
[2022-11-28] MEDS: Abacavir/Dolutegravir/Lamivudi (Triumeq Tablet) PO SCH (18:03)
[2022-11-28] MEDS: ATORVASTATIN 10 MG TABLET PO SCH (22:06)
[2022-11-28] MEDS: CARVEDILOL 25 MG TABLET (COREG) PO SCH (22:07)
[2022-11-28] MEDS: DOXAZOSIN MESYLATE 2 MG TABLET PO SCH (22:07)
[2022-11-29] VITALS: BP_SYST 114
[2022-11-29 05:50] LABS: BASOPHILS % (AUTO) 0.6 % (0.0-2.0); EOSINOPHILS # (AUTO) 0.1 K/uL (0.0-0.4); EOSINOPHILS % (AUTO) 1.1 % (0.0-4.0); HEMATOCRIT 34.5 % (36-54); HEMOGLOBIN 11.5 g/dL (14.0-18.0); LYMPHOCYTES # (AUTO) 0.9 K/uL (1.0-5.5); LYMPHOCYTES % (AUTO) 13.2 % (20.5-51.5); MEAN CORPUSCULAR HEMOGLOBIN 30 pg (27-31); MEAN CORPUSCULAR HGB CONC 33 % (32-36); MEAN CORPUSCULAR VOLUME 89 fL (79.0-98.0); MONOCYTES # (AUTO) 0.8 K/uL (0.0-1.0); MONOCYTES % (AUTO) 11.3 % (1.7-9.3); NEUTROPHILS # (AUTO) 4.9 K/uL (1.8-7.7); NEUTROPHILS % (AUTO) 73.8 % (40.0-70.0); PLATELET COUNT (AUTO) 235 K/uL (130-430); RED BLOOD CELL COUNT(AUTO) 3.86 MIL/uL (4.2-6.2); RED CELL DISTRIBUTION WIDTH 14.4 % (9.0-15.0); WHITE BLOOD COUNT (AUTO) 6.7 K/uL (4.8-10.8)
[2022-11-29 06:33] LABS: C-REACTIVE PROTEIN QUANT 12.9 mg/dL (0-0.5); CALCIUM 8.8 mg/dL (8.4-11.0); CREATININE 1.35 mg/dL (0.55-1.30)
[2022-11-29] MEDS: NORMAL SALINE 5 ML DISP.SYRIN IVF SCH ×3 (06:54→22:00)
[2022-11-29] MEDS: INSULIN REGULAR, HUMAN 100 UNITS/ML, 3 ML VIAL (humuLIN R) SUBCUT PRN (06:58)
[2022-11-29 08:00] VITALS: BP_SYST 121
[2022-11-29 08:02] LABS: ERYTHROCYTE SEDIMENTATION RATE 83 MM/HR (0-15)
[2022-11-29] MEDS: DAPSONE 100MG TABLET PO SCH (09:00)
[2022-11-29] MEDS: ASPIRIN 81 MG TABLET(ECOTRIN) PO SCH (10:22)
[2022-11-29] MEDS: FUROSEMIDE 20 MG/2 ML VIAL IVP SCH ×2 (10:22→21:48)
[2022-11-29] MEDS: CHOLECALCIFEROL (VITAMIN D3) 2,000 UNIT TABLET PO SCH (10:22)
[2022-11-29] MEDS: LOSARTAN POTASSIUM 50 MG TABLET (COZAAR) PO SCH (10:22)
[2022-11-29] MEDS: APIXABAN 2.5 MG TABLET PO SCH (10:31)
[2022-11-29] MEDS: ONDANSETRON HCL 4 MG/2 ML VIAL IVP PRN (10:31)
[2022-11-29] MEDS: ISOSORBIDE MONONITRATE 30 MG TAB.ER.24H PO SCH (10:32)
[2022-11-29] MEDS: LORATADINE 10 MG TABLET PO SCH (10:32)
[2022-11-29] MEDS: CARVEDILOL 25 MG TABLET (COREG) PO SCH ×2 (10:33→20:32)
[2022-11-29] MEDS: levoFLOXacin 750 MG TABLET PO SCH (10:47)
[2022-11-29] MEDS: MULTIVITS,CA,MINERALS/IRON/FA 1 TABLET PO SCH (10:48)
[2022-11-29] MEDS: valACYclovir HCL 500 MG TABLET PO SCH (10:50)
[2022-11-29] MEDS: LIDOCAINE PATCH 5% 1 EA TP SCH (10:50)
[2022-11-29 12:00] VITALS: BP_SYST 144
[2022-11-29] MEDS: DARUNAVIR PO SCH (13:15)
[2022-11-29] MEDS: COBICISTAT PO SCH (13:15)
[2022-11-29] MEDS: AZITHROMYCIN 500 MG in NS 250 ML IV SCH (14:35)
[2022-11-29 16:00] VITALS: BP_SYST 135
[2022-11-29] MEDS: Abacavir/Dolutegravir/Lamivudi (Triumeq Tablet) PO SCH (17:49)
[2022-11-29] MEDS ORDERED: PANTOPRAZOLE SODIUM 40 MG TAB PO ONE (19:00)
[2022-11-29] MEDS: MAG-AL HYDROX/SIMETH 30 ML UDC PO PRN (19:04)
[2022-11-29 20:00] VITALS: BP_SYST 132
[2022-11-29] MEDS: ATORVASTATIN 10 MG TABLET PO SCH (20:32)
[2022-11-29] MEDS: DOXAZOSIN MESYLATE 2 MG TABLET PO SCH (20:32)
[2022-11-29] MEDS: HYDROcodone/ACETAMIN 10-325 MG TAB PO PRN (20:33)
[2022-11-30] VITALS (8 sets, daily range): BP systolic 101–124
[2022-11-30] MEDS: OXYCODONE/ACETAMINOPHEN 5-325 TABLET PO PRN ×2 (04:10→22:06)
[2022-11-30 05:48] LABS: BASOPHILS % (AUTO) 0.6 % (0.0-2.0); EOSINOPHILS # (AUTO) 0.1 K/uL (0.0-0.4); EOSINOPHILS % (AUTO) 1.1 % (0.0-4.0); HEMATOCRIT 34.6 % (36-54); HEMOGLOBIN 11.6 g/dL (14.0-18.0); LYMPHOCYTES % (AUTO) 14.8 % (20.5-51.5); MEAN CORPUSCULAR HEMOGLOBIN 30 pg (27-31); MEAN CORPUSCULAR HGB CONC 34 % (32-36); MEAN CORPUSCULAR VOLUME 89 fL (79.0-98.0); MONOCYTES # (AUTO) 0.8 K/uL (0.0-1.0); MONOCYTES % (AUTO) 11.2 % (1.7-9.3); NEUTROPHILS % (AUTO) 72.3 % (40.0-70.0); PLATELET COUNT (AUTO) 235 K/uL (130-430); RED BLOOD CELL COUNT(AUTO) 3.89 MIL/uL (4.2-6.2); RED CELL DISTRIBUTION WIDTH 14.1 % (9.0-15.0); WHITE BLOOD COUNT (AUTO) 6.9 K/uL (4.8-10.8)
[2022-11-30] MEDS: NORMAL SALINE 5 ML DISP.SYRIN IVF SCH ×3 (06:25→22:00)
[2022-11-30 06:29] LABS: ERYTHROCYTE SEDIMENTATION RATE 74 MM/HR (0-15)
[2022-11-30] MEDS: INSULIN REGULAR, HUMAN 100 UNITS/ML, 3 ML VIAL (humuLIN R) SUBCUT PRN ×2 (06:32→20:30)
[2022-11-30 06:37] LABS: C-REACTIVE PROTEIN QUANT 13.5 mg/dL (0-0.5); CALCIUM 8.7 mg/dL (8.4-11.0); CREATININE 1.58 mg/dL (0.55-1.30)
[2022-11-30] MEDS: MAG-AL HYDROX/SIMETH 30 ML UDC PO PRN ×2 (06:56→20:22)
[2022-11-30] MEDS: valACYclovir HCL 500 MG TABLET PO SCH (09:00)
[2022-11-30] MEDS: DAPSONE 100MG TABLET PO SCH (09:00)
[2022-11-30] MEDS: LORATADINE 10 MG TABLET PO SCH (09:55)
[2022-11-30] MEDS: CHOLECALCIFEROL (VITAMIN D3) 2,000 UNIT TABLET PO SCH (09:55)
[2022-11-30] MEDS: ISOSORBIDE MONONITRATE 30 MG TAB.ER.24H PO SCH (09:59)
[2022-11-30] MEDS: MULTIVITS,CA,MINERALS/IRON/FA 1 TABLET PO SCH (09:59)
[2022-11-30] MEDS: CARVEDILOL 25 MG TABLET (COREG) PO SCH ×2 (10:00→20:22)
[2022-11-30] MEDS: ASPIRIN 81 MG TABLET(ECOTRIN) PO SCH (10:00)
[2022-11-30] MEDS: LIDOCAINE PATCH 5% 1 EA TP SCH (10:01)
[2022-11-30] MEDS: APIXABAN 2.5 MG TABLET PO SCH (10:03)
[2022-11-30] MEDS: FUROSEMIDE 20 MG/2 ML VIAL IVP SCH ×2 (11:27→21:55)
[2022-11-30] MEDS: AZITHROMYCIN 500 MG in NS 250 ML IV SCH (14:16)
[2022-11-30] MEDS: LOSARTAN POTASSIUM 50 MG TABLET (COZAAR) PO SCH (17:23)
[2022-11-30] MEDS: COBICISTAT PO SCH (18:00)
[2022-11-30] MEDS: DARUNAVIR PO SCH (18:00)
[2022-11-30] MEDS: Abacavir/Dolutegravir/Lamivudi (Triumeq Tablet) PO SCH (18:00)
[2022-11-30] MEDS: ATORVASTATIN 10 MG TABLET PO SCH (20:18)
[2022-11-30] MEDS: DOXAZOSIN MESYLATE 2 MG TABLET PO SCH (20:19)
[2022-12-01] VITALS: BP_SYST 104
[2022-12-01] MEDS: MAG-AL HYDROX/SIMETH 30 ML UDC PO PRN (06:05)
[2022-12-01] MEDS: NORMAL SALINE 5 ML DISP.SYRIN IVF SCH (06:24)
[2022-12-01] MEDS: ONDANSETRON HCL 4 MG/2 ML VIAL IVP PRN (06:24)
[2022-12-01] MEDS: INSULIN REGULAR, HUMAN 100 UNITS/ML, 3 ML VIAL (humuLIN R) SUBCUT PRN ×2 (06:53→12:21)
[2022-12-01 08:05] VITALS: BP_SYST 117
[2022-12-01] MEDS: DAPSONE 100MG TABLET PO SCH (09:00)
[2022-12-01] MEDS: FUROSEMIDE 20 MG/2 ML VIAL IVP SCH (09:49)
[2022-12-01] MEDS ORDERED: COR25 PO (10:25)
[2022-12-01] MEDS ORDERED: ISOS30TA85 PO (10:25)
[2022-12-01] MEDS ORDERED: AZIT500T3 PO (10:25)
[2022-12-01 10:31] LABS: BASOPHILS # (AUTO) 0.1 K/uL (0.0-0.2); BASOPHILS % (AUTO) 0.7 % (0.0-2.0); EOSINOPHILS % (AUTO) 0.5 % (0.0-4.0); HEMOGLOBIN 11.8 g/dL (14.0-18.0); MEAN CORPUSCULAR HEMOGLOBIN 30 pg (27-31); MEAN CORPUSCULAR HGB CONC 35 % (32-36); MEAN CORPUSCULAR VOLUME 88 fL (79.0-98.0); MONOCYTES # (AUTO) 0.8 K/uL (0.0-1.0); MONOCYTES % (AUTO) 10.1 % (1.7-9.3); NEUTROPHILS # (AUTO) 6.2 K/uL (1.8-7.7); NEUTROPHILS % (AUTO) 76.7 % (40.0-70.0); PLATELET COUNT (AUTO) 240 K/uL (130-430); RED BLOOD CELL COUNT(AUTO) 3.88 MIL/uL (4.2-6.2); RED CELL DISTRIBUTION WIDTH 14.1 % (9.0-15.0); WHITE BLOOD COUNT (AUTO) 8.1 K/uL (4.8-10.8)
[2022-12-01 10:50] LABS: ALBUMIN 3.1 g/dL (3.4-4.8); CALCIUM 8.5 mg/dL (8.4-11.0); CREATININE 1.48 mg/dL (0.55-1.30); TOTAL BILIRUBIN 0.5 mg/dL (0.0-1.0)
[2022-12-01] MEDS: CHOLECALCIFEROL (VITAMIN D3) 2,000 UNIT TABLET PO SCH (10:53)
[2022-12-01] MEDS: LIDOCAINE PATCH 5% 1 EA TP SCH (10:53)
[2022-12-01] MEDS: LORATADINE 10 MG TABLET PO SCH (10:53)
[2022-12-01] MEDS: ASPIRIN 81 MG TABLET(ECOTRIN) PO SCH (10:54)
[2022-12-01] MEDS: MULTIVITS,CA,MINERALS/IRON/FA 1 TABLET PO SCH (10:54)
[2022-12-01] MEDS: LOSARTAN POTASSIUM 50 MG TABLET (COZAAR) PO SCH (10:54)
[2022-12-01] MEDS: CARVEDILOL 25 MG TABLET (COREG) PO SCH (10:54)
[2022-12-01] MEDS: valACYclovir HCL 500 MG TABLET PO SCH (10:55)
[2022-12-01] MEDS: ISOSORBIDE MONONITRATE 30 MG TAB.ER.24H PO SCH (10:55)
[2022-12-01] MEDS: APIXABAN 2.5 MG TABLET PO SCH (11:13)
[2022-12-01 12:00] VITALS: BP_SYST 147
[2022-12-01 12:52] VITALS: BP_SYST 147
[2022-12-01] MEDS ORDERED: POTASSIUM CHLORIDE 20 MEQ TAB.PRT.SR PO ONE (14:00)
[2022-12-03 16:06] LABS: COCCIDIOIDES AB IGG 0.4 IV (<=0.9)
== END 2022-12-01 13:15 | disposition home or self-care (01) | DRG 194 ==
LOC: SED 17:58 → STU 21:42
PROVIDERS: ADMIT Preventive Medicine Preventive Medicine/Occupational Environmental Medicine; ATTEND Preventive Medicine Preventive Medicine/Occupational Environmental Medicine
PROC: 4A02XM4 Measurement of Cardiac Total Activity, External Approach (ICD-10-PCS; principal; 2022-11-28)
PROC: 3E073KZ Introduction of Other Diagnostic Substance into Coronary Artery, Percutaneous Approach (ICD-10-PCS; 2022-11-28)
DX: I11.0 Hypertensive heart disease with heart failure (principal); J96.00 Acute respiratory failure, unspecified whether with hypoxia or hypercapnia; I21.9 Acute myocardial infarction, unspecified; J18.9 Pneumonia, unspecified organism; J45.901 Unspecified asthma with (acute) exacerbation; E88.09 Other disorders of plasma-protein metabolism, not elsewhere classified; I50.33 Acute on chronic diastolic (congestive) heart failure; K21.9 Gastro-esophageal reflux disease without esophagitis; Z20.822 Contact with and (suspected) exposure to COVID-19; I25.10 Atherosclerotic heart disease of native coronary artery without angina pectoris; E78.5 Hyperlipidemia, unspecified; J44.9 Chronic obstructive pulmonary disease, unspecified; Z21 Asymptomatic human immunodeficiency virus [HIV] infection status; Z68.37 Body mass index [BMI] 37.0-37.9, adult; E11.65 Type 2 diabetes mellitus with hyperglycemia; D64.9 Anemia, unspecified; B00.9 Herpesviral infection, unspecified; E66.9 Obesity, unspecified; Z86.711 Personal history of pulmonary embolism; Z86.73 Personal history of transient ischemic attack (TIA), and cerebral infarction without residual deficits; Z88.8 Allergy status to other drugs, medicaments and biological substances
CPT/HCPCS: 36415; 71045; 80048; 80053; 81003; 83605; 83735; 83880; 84100; 84484; 85025; 85379; 85651-TC; 86140; 86480; 86635; 86738; 87040; 87449; 93005; 93017; 93306; 94760; 96374; 96375; 97116-GP; 97163-GP; 99285; A9500; G0378; J0456; J0696; J1885; J1940; J2405; J2785; J7050; J7060

== ENCOUNTER 2023-07-03 17:02 | Emergency (ER) | payer MEDICAID ==
[~2023-07-03] VITALS: Ht 182.9 cm; Wt 99.8 kg
[~2023-07-03 17:02] MED LIST changes: +AZIT500T3 PO; +COR25 PO; +DOXA-8 PO; -DOXA4TAB2 PO; +ISOS30TA85 PO; -LEVO750T64 PO; +LOSA-413 PO; -LOSA50TA3 PO
[2023-07-03 17:27] VITALS: BP_SYST 135; PULSE 83; RESP 20; TEMP 98; O2SAT 100
[2023-07-03] MEDS ORDERED: ACETAMINOPHEN 500 MG TABLET PO ONE (18:15)
[2023-07-03 18:26] LABS: BASOPHILS % (AUTO) 0.4 % (0.0-2.0); EOSINOPHILS % (AUTO) 0.9 % (0.0-4.0); LYMPHOCYTES # (AUTO) 2.1 K/uL (1.0-5.5); LYMPHOCYTES % (AUTO) 41.2 % (20.5-51.5); MEAN CORPUSCULAR HEMOGLOBIN 30 pg (27-31); MEAN CORPUSCULAR HGB CONC 33 % (32-36); MEAN CORPUSCULAR VOLUME 91 fL (79.0-98.0); MONOCYTES # (AUTO) 0.4 K/uL (0.0-1.0); MONOCYTES % (AUTO) 7.9 % (1.7-9.3); NEUTROPHILS # (AUTO) 2.6 K/uL (1.8-7.7); NEUTROPHILS % (AUTO) 49.6 % (40.0-70.0); PLATELET COUNT (AUTO) 217 K/uL (130-430); RED BLOOD CELL COUNT(AUTO) 4.28 MIL/uL (4.2-6.2); RED CELL DISTRIBUTION WIDTH 13.5 % (9.0-15.0); WHITE BLOOD COUNT (AUTO) 5.2 K/uL (4.8-10.8)
[2023-07-03 18:27] LABS: BILIRUBIN,URINE NEGATIVE (NEGATIVE); BLOOD, URINE NEGATIVE (NEGATIVE); CLARITY/URINE CLEAR (CLEAR); COLOR,URINE YELLOW (YELLOW); GLUCOSE,URINE NEGATIVE (NEGATIVE); KETONES,URINE NEGATIVE (NEGATIVE); LEUKOCYTE ESTERASE ,URINE NEGATIVE (NEGATIVE); NITRITE, URINE NEGATIVE (NEGATIVE); PROTEIN URINE NEGATIVE (NEGATIVE); UROBILINOGEN,URINE 0.2 (0.2-1.0)
[2023-07-03 18:28] LABS: ANION GAP 6 (5-15); CALCIUM 9.2 mg/dL (8.4-11.0); CARBON DIOXIDE 31 mmol/L (23-29); CHLORIDE 101 mmol/L (98-107); CREATININE 1.46 mg/dL (0.55-1.30); GFR AFRICAN AMERICAN 63 mL/min (>90); GLUCOSE 128 mg/dL (74-106); SODIUM SERUM 138 mmol/L (136-145); UREA NITROGEN, BLOOD 13 mg/dL (8-21)
[2023-07-03 18:35] LABS: ALANINE AMINOTRANSFERASE 30 U/L (12-78); ALBUMIN 3.7 g/dL (3.4-4.8); ASPARTATE AMINOTRANSFERASE 16 U/L (10-37); LIPASE 32 U/L (16-77); TOTAL BILIRUBIN 0.4 mg/dL (0.0-1.0); TOTAL PROTEIN, SERUM 7.1 g/dL (6.4-8.3)
[2023-07-03 18:37] LABS: GFR NON AFRICAN-AMERICAN 52 mL/min (>90)
[2023-07-03 20:23] VITALS: BP_SYST 135; PULSE 71; RESP 18; TEMP 97.4; O2SAT 97
== END 2023-07-03 20:23 | disposition home or self-care (01) ==
LOC: SED 17:02
DX: R30.9 Painful micturition, unspecified (principal); R25.2 Cramp and spasm; I12.9 Hypertensive chronic kidney disease with stage 1 through stage 4 chronic kidney disease, or unspecified chronic kidney disease; E11.22 Type 2 diabetes mellitus with diabetic chronic kidney disease; N18.9 Chronic kidney disease, unspecified; I10 Essential (primary) hypertension; E11.9 Type 2 diabetes mellitus without complications; K21.9 Gastro-esophageal reflux disease without esophagitis; Z88.8 Allergy status to other drugs, medicaments and biological substances; Z79.82 Long term (current) use of aspirin; Z79.899 Other long term (current) drug therapy
CPT/HCPCS: 36415; 80053; 81001; 81003; 83690; 83880; 84484; 85025; 87086; 87491; 93970; 99284

== ENCOUNTER 2023-11-16 12:17 | Emergency (ER) | payer MEDICAID ==
[~2023-11-16] VITALS: Ht 172.7 cm; Wt 102.1 kg
[2023-11-16 12:34] VITALS: BP_SYST 120; PULSE 106; RESP 20; TEMP 99.7; O2SAT 98
[2023-11-16 13:09] LABS: BASOPHILS % (AUTO) 0.4 % (0.0-2.0); EOSINOPHILS % (AUTO) 0.2 % (0.0-4.0); HEMATOCRIT 38.8 % (36-54); HEMOGLOBIN 13.1 g/dL (14.0-18.0); LYMPHOCYTES # (AUTO) 0.9 K/uL (1.0-5.5); MEAN CORPUSCULAR HEMOGLOBIN 32 pg (27-31); MEAN CORPUSCULAR HGB CONC 34 % (32-36); MEAN CORPUSCULAR VOLUME 94 fL (79.0-98.0); MONOCYTES # (AUTO) 0.7 K/uL (0.0-1.0); MONOCYTES % (AUTO) 9.4 % (1.7-9.3); NEUTROPHILS # (AUTO) 6.1 K/uL (1.8-7.7); PLATELET COUNT (AUTO) 166 K/uL (130-430); RED BLOOD CELL COUNT(AUTO) 4.11 MIL/uL (4.2-6.2); RED CELL DISTRIBUTION WIDTH 13.1 % (9.0-15.0); WHITE BLOOD COUNT (AUTO) 7.8 K/uL (4.8-10.8)
[2023-11-16 13:10] LABS: INFLUENZA TYPE A Negative (NEGATIVE); INFLUENZA TYPE B NEGATIVE (NEGATIVE)
[2023-11-16 13:28] LABS: INR 1.1 (0.80-1.20)
[2023-11-16 13:29] LABS: CALCIUM 8.5 mg/dL (8.4-11.0); CREATININE 1.48 mg/dL (0.55-1.30)
[2023-11-16] MEDS ORDERED: LEVO-62 PO (13:44)
[2023-11-16 13:50] VITALS: BP_SYST 120; PULSE 106; RESP 20; TEMP 99.7; O2SAT 98
== END 2023-11-16 13:52 | disposition home or self-care (01) ==
LOC: SED 12:17
DX: J18.9 Pneumonia, unspecified organism (principal); R05.9 Cough, unspecified; R09.89 Other specified symptoms and signs involving the circulatory and respiratory systems; E11.9 Type 2 diabetes mellitus without complications; K21.9 Gastro-esophageal reflux disease without esophagitis; I10 Essential (primary) hypertension; Z91.011 Allergy to milk products; Z79.899 Other long term (current) drug therapy; Z20.822 Contact with and (suspected) exposure to COVID-19
CPT/HCPCS: 36415; 71045; 80048; 83880; 85025; 85610; 85730; 99284

== ENCOUNTER 2024-03-29 13:22 | Emergency (ER) | payer MEDICAID ==
[~2024-03-29] VITALS: Ht 180.3 cm; Wt 98.0 kg
[~2024-03-29 13:22] MED LIST changes: +AZIT500T PO; -AZIT500T3 PO; +LEVO-62 PO; -MULT-1094 PO; +THERA PO; +[UNRECOGNIZED DRUG - OTHER] PO
[2024-03-29 13:30] VITALS: BP_SYST 128; PULSE 88; RESP 18; TEMP 97.6; O2SAT 96
[2024-03-29 14:23] LABS: BASOPHILS % (AUTO) 0.7 % (0.0-2.0); EOSINOPHILS % (AUTO) 0.4 % (0.0-4.0); HEMATOCRIT 38.6 % (36-54); HEMOGLOBIN 13.2 g/dL (14.0-18.0); LYMPHOCYTES # (AUTO) 1.2 K/uL (1.0-5.5); LYMPHOCYTES % (AUTO) 30.1 % (20.5-51.5); MEAN CORPUSCULAR HEMOGLOBIN 32 pg (27-31); MEAN CORPUSCULAR HGB CONC 34 % (32-36); MEAN CORPUSCULAR VOLUME 94 fL (79.0-98.0); MONOCYTES # (AUTO) 0.3 K/uL (0.0-1.0); MONOCYTES % (AUTO) 8.3 % (1.7-9.3); NEUTROPHILS # (AUTO) 2.4 K/uL (1.8-7.7); NEUTROPHILS % (AUTO) 60.5 % (40.0-70.0); PLATELET COUNT (AUTO) 164 K/uL (130-430); RED BLOOD CELL COUNT(AUTO) 4.12 MIL/uL (4.2-6.2); RED CELL DISTRIBUTION WIDTH 13.6 % (9.0-15.0); WHITE BLOOD COUNT (AUTO) 3.9 K/uL (4.8-10.8)
[2024-03-29 14:25] LABS: ERYTHROCYTE SEDIMENTATION RATE 5 MM/HR (0-15)
[2024-03-29 14:38] LABS: INR 1.1 (0.80-1.20)
[2024-03-29 14:58] LABS: CALCIUM 8.8 mg/dL (8.4-11.0); CREATININE 1.46 mg/dL (0.55-1.30); POTASSIUM 4.2 mmol/L (3.5-5.1); URIC ACID 5.9 mg/dL (2.4-7.0)
[2024-03-29] MEDS: BACITRACIN 1 GM OINT TP ONE (16:46)
[2024-03-29] MEDS: LIDOCAINE 1% 10 MG/ML, 20 ML MDV INJ ONE (16:48)
[2024-03-29] MEDS: DIPHTH,PERTUSS(ACELL),TET VAC 0.5 ML VIAL (Tdap) I.M. ONE (16:55)
[2024-03-29] MEDS ORDERED: TRAM50TA2 PO (16:58)
[2024-03-29] MEDS ORDERED: CLIN-22 PO (16:58)
[2024-03-29 17:06] VITALS: BP_SYST 128; PULSE 88; RESP 18; TEMP 97.6; O2SAT 96
== END 2024-03-29 17:09 | disposition home or self-care (01) ==
LOC: SED 13:22
DX: M70.22 Olecranon bursitis, left elbow (principal); Z23 Encounter for immunization; I25.2 Old myocardial infarction; E11.9 Type 2 diabetes mellitus without complications; I10 Essential (primary) hypertension; K21.9 Gastro-esophageal reflux disease without esophagitis; Z88.8 Allergy status to other drugs, medicaments and biological substances; Z79.899 Other long term (current) drug therapy; Z79.2 Long term (current) use of antibiotics; Y93.89 Activity, other specified
CPT/HCPCS: 36415; 80048; 84550; 85025; 85610; 85651; 85730; 90715; 99284

== ENCOUNTER 2024-04-20 15:41 | Emergency (ER) | payer MEDICAID ==
[~2024-04-20] VITALS: Ht 180.3 cm; Wt 95.7 kg
[~2024-04-20 15:41] MED LIST changes: +CLIN-22 PO; +TRAM50TA2 PO
[2024-04-20 15:44] VITALS: BP_SYST 136; PULSE 97; RESP 17; TEMP 98.4; O2SAT 99
[2024-04-20] MEDS: NACL 0.9% 1,000 ML IV ONE (17:25)
[2024-04-20] MEDS: KETOROLAC TROMETHAMINE 30 MG VIAL IVP ONE (17:26)
[2024-04-20] MEDS: ONDANSETRON HCL 4 MG/2 ML VIAL IVP ONE (17:26)
[2024-04-20 17:48] LABS: BASOPHILS % (AUTO) 0.9 % (0.0-2.0); HEMATOCRIT 39.8 % (36-54); HEMOGLOBIN 13.4 g/dL (14.0-18.0); LYMPHOCYTES # (AUTO) 1.4 K/uL (1.0-5.5); LYMPHOCYTES % (AUTO) 43.1 % (20.5-51.5); MEAN CORPUSCULAR HEMOGLOBIN 31 pg (27-31); MEAN CORPUSCULAR HGB CONC 34 % (32-36); MEAN CORPUSCULAR VOLUME 93 fL (79.0-98.0); MONOCYTES # (AUTO) 0.3 K/uL (0.0-1.0); MONOCYTES % (AUTO) 10.3 % (1.7-9.3); NEUTROPHILS # (AUTO) 1.5 K/uL (1.8-7.7); NEUTROPHILS % (AUTO) 45.7 % (40.0-70.0); PLATELET COUNT (AUTO) 148 K/uL (130-430); RED BLOOD CELL COUNT(AUTO) 4.29 MIL/uL (4.2-6.2); RED CELL DISTRIBUTION WIDTH 12.7 % (9.0-15.0); WHITE BLOOD COUNT (AUTO) 3.3 K/uL (4.8-10.8)
[2024-04-20 18:20] LABS: INFLUENZA TYPE A Negative (NEGATIVE); INFLUENZA TYPE B NEGATIVE (NEGATIVE)
[2024-04-20 18:21] LABS: BILIRUBIN,URINE NEGATIVE (NEGATIVE); BLOOD, URINE NEGATIVE (NEGATIVE); CLARITY/URINE CLEAR (CLEAR); COLOR,URINE YELLOW (YELLOW); GLUCOSE,URINE NEGATIVE (NEGATIVE); KETONES,URINE NEGATIVE (NEGATIVE); LEUKOCYTE ESTERASE ,URINE NEGATIVE (NEGATIVE); NITRITE, URINE NEGATIVE (NEGATIVE); PROTEIN URINE TRACE (NEGATIVE); UROBILINOGEN,URINE 0.2 (0.2-1.0)
[2024-04-20 18:23] LABS: ALANINE AMINOTRANSFERASE 25 U/L (12-78); ALBUMIN 3.6 g/dL (3.4-4.8); ANION GAP 6 (5-15); ASPARTATE AMINOTRANSFERASE 25 U/L (10-37); BILIRUBIN,DIRECT 0.2 mg/dL (0.0-0.3); CALCIUM 8.8 mg/dL (8.4-11.0); CARBON DIOXIDE 31 mmol/L (23-29); CHLORIDE 100 mmol/L (98-107); CREATININE 1.36 mg/dL (0.55-1.30); GFR AFRICAN AMERICAN 69 mL/min (>90); GLUCOSE 107 mg/dL (74-106); POTASSIUM 3.8 mmol/L (3.5-5.1); SODIUM SERUM 137 mmol/L (136-145); TOTAL BILIRUBIN 0.7 mg/dL (0.0-1.0); TOTAL PROTEIN, SERUM 6.9 g/dL (6.4-8.3); UREA NITROGEN, BLOOD 12 mg/dL (8-21)
[2024-04-20 18:25] LABS: PROTHROMBIN TIME 10.4 SECS (9.5-12.5)
[2024-04-20 18:27] LABS: GFR NON AFRICAN-AMERICAN 57 mL/min (>90)
[2024-04-20 18:49] LABS: BACTERIA,URINE RARE /HPF (None Seen); MUCUS,URINE None Seen /LPF (None Seen); RBC,URINE NONE SEEN /HPF (0-3); WBC,URINE 0-3 /HPF (0-3)
[2024-04-20] MEDS ORDERED: ONDA-8 TL (18:59)
[2024-04-20] MEDS ORDERED: LOPE2CAP PO (18:59)
[2024-04-20] MEDS ORDERED: IBUP-1969 PO (18:59)
[2024-04-20] MEDS: LOPERAMIDE HCL 2 MG CAPSULE PO ONE (19:24)
[2024-04-20 19:31] VITALS: BP_SYST 136; PULSE 97; RESP 17; TEMP 98.4; O2SAT 99
== END 2024-04-20 19:31 | disposition home or self-care (01) ==
LOC: SED 15:41
DX: B34.9 Viral infection, unspecified (principal); R19.7 Diarrhea, unspecified; R10.9 Unspecified abdominal pain; R11.0 Nausea; Z20.822 Contact with and (suspected) exposure to COVID-19; E86.0 Dehydration; I25.2 Old myocardial infarction; E11.9 Type 2 diabetes mellitus without complications; K21.9 Gastro-esophageal reflux disease without esophagitis; I10 Essential (primary) hypertension; Z98.890 Other specified postprocedural states; Z85.9 Personal history of malignant neoplasm, unspecified; Z91.011 Allergy to milk products; Z79.899 Other long term (current) drug therapy; Z79.2 Long term (current) use of antibiotics
CPT/HCPCS: 99285; 96374; 71045; 96361; 96375; 87426; 80076; 80048; 81001; 83735; 85025; 85610; 85730; 87040; 87086; 84484; 36415; 93005; 83605; 87804 ×2; J1885; J2405; J7030; 81000; 81015

== ENCOUNTER 2024-04-24 17:21 | Emergency (ER) | payer MEDICAID ==
[~2024-04-24] VITALS: Ht 180.3 cm; Wt 96.6 kg
[~2024-04-24 17:21] MED LIST changes: +IBUP-1969 PO; +LOPE2CAP PO; +ONDA-8 TL
[2024-04-24 17:58] VITALS: BP_SYST 142; PULSE 78; RESP 16; TEMP 97; O2SAT 98
[2024-04-24] MEDS ORDERED: ONDANSETRON 4 MG ODT TAB PO ONE (18:45)
[2024-04-24 19:36] LABS: BILIRUBIN,URINE NEGATIVE (NEGATIVE); BLOOD, URINE NEGATIVE (NEGATIVE); CLARITY/URINE CLEAR (CLEAR); COLOR,URINE YELLOW (YELLOW); GLUCOSE,URINE NEGATIVE (NEGATIVE); KETONES,URINE NEGATIVE (NEGATIVE); LEUKOCYTE ESTERASE ,URINE NEGATIVE (NEGATIVE); NITRITE, URINE NEGATIVE (NEGATIVE); PH,URINE 6.5 (5.0-8.0); PROTEIN URINE NEGATIVE (NEGATIVE); UROBILINOGEN,URINE 0.2 (0.2-1.0)
[2024-04-24] MEDS: NACL 0.9% 1,000 ML IV ONE (22:58)
[2024-04-24] MEDS: metroNIDAZOLE 500 mg/NS 100 ML IV ONE (22:59)
[2024-04-25 00:14] LABS: ALBUMIN 3.3 g/dL (3.4-4.8); BILIRUBIN,DIRECT 0.2 mg/dL (0.0-0.3); CALCIUM 8.4 mg/dL (8.4-11.0); CREATININE 1.3 mg/dL (0.55-1.30); TOTAL BILIRUBIN 0.5 mg/dL (0.0-1.0); TOTAL PROTEIN, SERUM 6.3 g/dL (6.4-8.3)
[2024-04-25 00:17] LABS: BASOPHILS % (AUTO) 0.4 % (0.0-2.0); EOSINOPHILS % (AUTO) 0.5 % (0.0-4.0); HEMATOCRIT 32.9 % (36-54); HEMOGLOBIN 11.3 g/dL (14.0-18.0); LYMPHOCYTES # (AUTO) 1.1 K/uL (1.0-5.5); LYMPHOCYTES % (AUTO) 28.1 % (20.5-51.5); MEAN CORPUSCULAR HEMOGLOBIN 32 pg (27-31); MEAN CORPUSCULAR HGB CONC 34 % (32-36); MEAN CORPUSCULAR VOLUME 92 fL (79.0-98.0); MONOCYTES # (AUTO) 0.2 K/uL (0.0-1.0); MONOCYTES % (AUTO) 6.3 % (1.7-9.3); NEUTROPHILS # (AUTO) 2.5 K/uL (1.8-7.7); NEUTROPHILS % (AUTO) 64.7 % (40.0-70.0); PLATELET COUNT (AUTO) 176 K/uL (130-430); RED BLOOD CELL COUNT(AUTO) 3.56 MIL/uL (4.2-6.2); WHITE BLOOD COUNT (AUTO) 3.9 K/uL (4.8-10.8)
[2024-04-25 01:17] LABS: INFLUENZA TYPE B NEGATIVE (NEGATIVE)
[2024-04-25 01:19] LABS: INFLUENZA TYPE A POSITIVE (NEGATIVE)
[2024-04-25] MEDS ORDERED: METR-154 PO (01:37)
[2024-04-25 01:48] VITALS: BP_SYST 156; PULSE 71; RESP 16; TEMP 97.2; O2SAT 94
== END 2024-04-25 01:50 | disposition home or self-care (01) ==
LOC: SED 17:21
DX: A08.8 Other specified intestinal infections (principal); R10.84 Generalized abdominal pain; Z20.822 Contact with and (suspected) exposure to COVID-19; I25.2 Old myocardial infarction; E11.9 Type 2 diabetes mellitus without complications; K21.9 Gastro-esophageal reflux disease without esophagitis; I10 Essential (primary) hypertension; Z90.49 Acquired absence of other specified parts of digestive tract; Z85.9 Personal history of malignant neoplasm, unspecified; Z91.011 Allergy to milk products; Z79.899 Other long term (current) drug therapy; Z79.2 Long term (current) use of antibiotics
CPT/HCPCS: 99285; 74176; 96365; 87426; 80076; 80048; 81001; 85025; 87040; 36415; 87804 ×2; 81003; J3490